=== PATIENT | male | born 1940 | race Caucasian/White ===

== ENCOUNTER 2017-02-18 10:00 | Inpatient (IN) ==
[2017-02-18] MEDS ORDERED: Ondansetron 4 MG/2 ML VIAL IVP ONE (10:13)
[2017-02-18] MEDS ORDERED: 0.9 % Sodium Chloride 1,000 ML IVC ONE ×3 (10:13→14:18)
[2017-02-18] MEDS ORDERED: *HR* Morphine 2 MG/ML SYRINGE IVP ONE (10:13)
[2017-02-18] MEDS ORDERED: Piperacillin/Tazobactam 3.375 GM in D5% in Water (Mini-Bag+) 100 ML IVPB ONE (10:13)
[2017-02-18] MEDS ORDERED: 0.9 % Sodium Chloride 1,000 ML ONE (10:14)
--- NOTE | 2017-02-18 10:35 | Emergency Department Note ---
Disposition Clinical Impression: Dehydration, Small bowel obstruction, Right inguinal hernia Hypotension Qualifiers: Hypotension type: unspecified hypotension type Qualified Code(s): I95.9 - Hypotension, unspecified Disposition: Admitted As Inpatient Condition: Fair Referrals: NO,PCP [Primary Care Provider] - Forms: ED Satisfaction Letter Time of Disposition: 13:24 General Adult HPI - General Chief complaint: ED Nausea/Vomiting/Diarrhea Stated complaint: N/V X 3 DAYS Time Seen by Provider: 02/18/17 10:08 Source: patient, EMS Mode of arrival: EMS Limitations: other Nursing Notes Reviewed: Yes Vital Signs Reviewed: Yes - History of Present Illness HPI Narrative: Patient presents via EMS for evaluation of nausea vomiting and abdominal pain. He is currently part of a facility where he is observed. EMS went to pick him up today and he was the only person in that facility today. Patient has had 3 days worth of abdominal pain nausea and vomiting. He was brought in the emergency room with stable vital signs are glucose 129. No other concerns or symptoms on presentation Onset (ago): day(s) Location: abdomen, genitals Radiation: non-radiation, abdomen Pain Severity: moderate Pain Scale: 6 Quality: aching Consistency: constant Improves with: nothing Worsens with: nothing Associated symptoms: Reports: loss of appetite, nausea/vomiting Treatments Prior to Arrival: none - Related Data Allergies Allergy/AdvReac Type Severity Reaction Status Date / Time No Known Allergies Allergy Verified 02/18/17 10:04 All systems ED: reviewed and negative except as stated. Review of Systems: As Per HPI Constitutional: Denies: fever, chills ENT ED: Denies: dysphagia Cardiovascular: Denies: chest pain, palpitations, dyspnea on exertion, orthopnea , edema Respiratory: Denies: cough, dyspnea, wheezes Gastrointestinal: Reports: abdominal pain, nausea, vomiting. Denies: diarrhea, constipation Genitourinary: Denies: urgency, dysuria Musculoskeletal: Denies: back pain, neck pain Neurological: Denies: headache Endocrine: Reports: fatigue Past Medical History - Past Medical History Attestation: Yes The following information was validated with the patient. Source: patient Physical Exam - General Limitations: no limitations General appearance: alert, in no apparent distress - Head Head exam: atraumatic, normocephalic, normal inspection - Eye Eye exam: Present: normal appearance, PERRL, EOMI - ENT ENT exam: normal exam, normal oropharynx, mucous membranes moist - Chest Chest inspection: Present: normal inspection, symmetric chest wall rise - Respiratory Respiratory exam: Present: normal lung sounds bilaterally. Absent: respiratory distress, wheezes - Cardiovascular Cardiovascular exam: Present: normal rhythm, tachycardia, normal heart sounds - Abdominal Exam Abdominal exam: Present: soft, tenderness, diminished bowel sounds. Absent: distention, guarding, rebound, rigidity - Male exam: Present: circumcised, inguinal hernia, testicular tenderness Scrotal exam: testicular tenderness: right, testicular swelling: right, testicular mass: right - Extremities Exam Extremities exam: Present: normal inspection, full ROM, normal capillary refill. Absent: tenderness, pedal edema - Back Exam Back exam: Present: normal inspection, full ROM. Absent: tenderness, CVA tenderness (R), CVA tenderness (L) - Neurological Exam Neurological exam: Present: alert, CN II-XII intact, normal gait - Psychiatric Psychiatric exam: Present: normal mood, flat affect - Skin Skin exam: Present: warm, dry, intact, normal color Course Course Narrative: Patient seen and examined the time of arrival by EMS. See history of present illness. 76-year-old male from a long-term presents today for evaluation of abdominal pain nausea vomiting and diarrhea. Patient is a poor historian. EMS said that the patient was only 1 at the facility this morning and nobody else was there besides a staff member. Patient is describing symptoms for approximately 3 days. During transport his vital signs are stable and his Accu- Chek was 129 he was afebrile. On presentation his blood pressure was labile in the 60-80 systolic range. Heart rate was anywhere from 100-120. Patient was mentating answering questions at the bedside without any acute complication. Physical exam is otherwise benign head is atraumatic pupils are equal round and reactive. Lungs are clear heart is regular he is no acute signs of cervical lymphadenopathy. Abdomen is distended and slightly rigid with no guarding no rigidity no peritoneal like symptoms at this time. Bedside ultrasound was completed immediately on presentation showing no acute signs of fluid in the abdomen as well as a technically difficult tests looking for possible aortic aneurysm. Patient on examination found to have a significantly enlarged and swollen right testicle difficult to differentiate whether this is a testicular torsion or incarcerated hernia. Based on the symptoms history and the presentation patient is concerning for incarcerated hernia as well as sepsis. Patient to be started on broad-spectrum antibiotics for abdominal pathology Doppler the scrotum ordered at this time as well as CT imaging. 2 L of fluid as well as pain medication nausea medication and antibiotics ordered at this time. Disposition will most likely be admission to the hospital for definitive management. There is also concerned for the safety of the patient at this outside facility considering this is been lingering for approximately 3 days and there is nobody else at the facility to observe her take care of him. Patient is resting comfortably in the bed at this time. He has a mildly flat affact since difficult to differentiate if he has significant pain or discomfort. - Reevaluation(s) Reevaluation #1: Patient found a small bowel ejection with right incarcerated inguinal hernia. Consultation placed onto the operative physician Dr. Lewis at this time. reviewed the presentation, symptoms, vs. abx, and imaging. pt grossly has incarcerated hernia with sbo, surgical intervention needed. fluids. pain medication, nausea medication and abx given. He recommended nasogastric tube intermittent wall suction in Trendelenburg. Patient to continue fluid hydration at this time. Consultation to be placed out to the nephrology group to see him as an outpatient. Dr. Posadas is patient this time. Surgery to come down and evaluate the patient at the bedside of this time . Dr. Posadas and I reviewed the case and she will be done superficial emergency room and recommended laboratory and on as well as CPK. Recommended increased fluid hydration. 2 L given her now 30 L to be given. Patient's blood pressure still been labile though he is mentating. Verbal consent completed for what appears to be a central line access. Patient understands this and benefits of this. Paperwork to be signed. He understands is concern for possible pneumothoraces infection vascular injury issue he also understands that we need to be provided fluid resuscitation as well as possible pressure medication secondary to a bowel pressure attending what appears to be in septic shock. Time: 11:55 Reevaluation #2: Central line placement on a complication. See dictated note. Procedures performed by Dr. Álvarez. I was there during the drug visualization cannulation of the procedure. No complications or issues during the event. Vital signs are maintained. Postprocedural x-ray ordered and shows stable presentation with no signs of pneumothorax. Patient will be discussed with hospitalist for admission at this time. Time: 13:22 Reevaluation #3: Discussed with the hospitalist Dr. Guzman. Read the presentation symptoms as well as consultation with the on-call surgeon Dr. Lewis. They are able to reduce the majority of the bowel impaction in the emergency room and recommended admission to hospitals. The hospitalist at this time and no other recommendations or concerns except to reorder a lactic acid and then to add a BMP. Patient otherwise resting comfortably in the bed. 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 Patient was admitted to hospital for definitive management. No other concerns or issues noted for the hospital so this time Time: 15:13 - Consultations Consultation #1: Surgery was at bedside and evaluated the patient. The automotive internet sales manager will discuss this with the operative physician Dr. Lewis. Nasogastric tube placed patient be placed in Trendelenburg at this time. Dr. Lewis is at the bedside has been approximately 4 L of fecal purulent discharge removed from the NG tube this time. One time a normal reduction was attempted of the inguinal hernia. Without any success. Patient will be placed in Trendelenburg and 2 L of fluid will be given prior to us attempting a central line placement. Otherwise patient is resting in the bed at this time in no apparent distress. Admission process will be completed after resuscitation IV line access and repeat surgical evaluation are completed. Time: 12:32 Consultation #2: Surgeon is at the bedside attempting manual reduction. This unable to be completely taken to their service. Waiting on their disposition. Time: 14:39 Vital Signs Temperature 97.8 F 02/18/17 10:04 Pulse Rate 115 02/18/17 10:04 Respiratory Rate 20 02/18/17 10:04 Blood Pressure 78/56 02/18/17 10:04 O2 Sat by Pulse Oximetry 100 02/18/17 10:04 Temperature 97.8 F 02/18/17 10:04 Pulse Rate 84 02/18/17 14:55 Respiratory Rate 18 02/18/17 14:55 Blood Pressure 91/49 02/18/17 14:55 O2 Sat by Pulse Oximetry 94 02/18/17 14:55 Oxygen Delivery Oxygen Delivery Room Air Procedures - Central Line Placement Right IJ Central Line Inserted*: Yes Central Line Catheter Replacement*: Yes Central Line Insertion: emergent Consent Obtained: verbal consent, written consent Procedural Pause: verify patient name and date of , timeout performed per policy, klarissa and assess the site, assemble equipment and verify supplies, perform hand hygiene Patient Placed on Monitor/Pulse Ox: Yes During the Procedure: clinician is wearing sterile gloves, cap, mask,& gown during insertion, sterile field and sterile technique are maintained, patient's face is covered with drape or mask and wearing a cap, everyone in room is wearing a mask Central Line Prep: Chlorhexidine scrub Prep the Procedure Site: apply chloraprep to the skin using a back and forth scrubbing motion Local Anesthetic: lidocaine 1% Amount of anesthesia used (mL): 10 Ultrasound Used for Placement: Yes Central Line Lumen Inserted: triple Post Procedure: sutured in place, good blood return, all ports aspirated, flushed, capped, sterile dressing applied, guide wire removed and visualized, dressing is dated Post Procedure X-Ray: tip of catheter in good position, no pneumothorax seen Patient Tolerated Procedure: well Complications: none Medical Decision Making - MDM Narrative Medical decision making narrative: Abdominal pain, nausea, vomiting, hypotension, small bowel obstruction, acute kidney insufficiency, dehydration - Medical Records Medical records reviewed: Yes I reviewed the patient's medical records. - Lab Data Lab results reviewed: Yes I reviewed the patient's lab results. Result diagrams: 02/18/17 10:28 02/18/17 10:28 Lab Results 02/18/17 02/18/17 02/18/17 Range/Units 10:28 10:28 10:28 WBC 18.8 H (4.3-11.1) K/mcL RBC 5.02 (4.19-5.50) M/mcL Hgb 14.5 (12.9-16.9) g/dL Hct 44.1 (37.5-50.1) % MCV 87.8 (83.0-100.0) fL MCH 28.9 (28.0-33.3) pg MCHC 32.9 (31.6-35.5) g/dL RDW 13.3 (11.5-14.5) % Plt Count 283 (140-400) K/mcL MPV 11.7 (9.4-12.4) fL Immature Gran % 0.4 (0-4) % Seg Neutrophils % 81.5 % Lymphocytes % 6.5 % Monocytes % 11.4 % Eosinophils % 0.0 % Basophils % 0.2 % Neutrophils # 15.4 H (1.6-8.9) K/mcL Lymphocytes # 1.2 (0.6-4.6) K/mcL Monocytes # 2.1 H (0.0-1.3) K/mcL Eosinophils # 0.0 (0.0-0.6) K/mcL Basophils # 0.0 (0.0-0.2) K/mcL PT 12.9 H (9.4-12.1) Seconds INR 1.2 APTT 26.7 (26.0-36.0) Seconds Sodium 138 (136-145) mEq/L Potassium 4.3 (3.5-4.5) mEq/L Chloride 84 L (98-109) mEq/L Carbon Dioxide 29 (19-29) mEq/L BUN 104 H (8-26) mg/dL Creatinine 6.79 H (0.72-1.25) mg/dL Est GFR ( Amer) 10 L (> 60) Est GFR (Non-Af Amer) 8 L (> 60) BUN/Creatinine Ratio 15 (6-26) Glucose 148 H (70-99) mg/dL Calculated Osmolality 321 H (280-300) Lactic Acid (0.5-2.2) mmol/L Calcium 9.5 (8.6-10.8) mg/dL Total Bilirubin 0.9 (0.2-1.2) mg/dL Direct Bilirubin 0.3 (0.0-0.5) mg/dL Indirect Bilirubin 0.6 (0.0-1.2) mg/dL AST 12 (5-34) Units/L ALT 11 (0-55) Units/L Alkaline Phosphatase 98 (38-126) Units/L Creatine Kinase 146 (30-200) Units/L Troponin I (0-0.03) ng/mL Serum Total Protein 8.4 H (6.0-8.3) g/dL Albumin 3.3 L (3.5-5.0) g/dL Globulin 5.1 H (2.4-3.5) g/dL Albumin/Globulin Ratio 0.6 L (1.1-2.2) Lipase 12 (8-78) Units/L Urine Color (Yellow) Urine Clarity (Clear) Urine pH (5.0-8.0) pH Units Ur Specific [place] (1.010-1.025) Urine Protein (Neg-Trace) mg/dL Urine Glucose (UA) (Normal) mg/dL Urine Ketones (Negative) mg/dL Urine Blood (Negative) Urine Nitrite (Negative) Urine Bilirubin (Negative) Urine Urobilinogen (Normal) mg/dL Ur Leukocyte Esterase (Negative) Urine Microscopic RBC (0-3) per hpf Urine Microscopic WBC (0-3) per hpf Ur Squamous Epith Cells (None-Few) per lpf Ur Transition Epith Cell (None-Few) per hpf Urine Bacteria (None-Few) per hpf Hyaline Casts (None-Few) per lpf Urine Sperm Ur Culture Indicated? (NO) Urine Opiates Screen (Mmauun=929) ng/mL Ur Barbiturates Screen (Xncsov=815) ng/mL Ur Phencyclidine Scrn (Cutoff=25) ng/mL Ur Amphetamines Screen (Mdtjcr=9705) ng/mL U Benzodiazepines Scrn (Rfwvsc=427) ng/mL Urine Cocaine Screen (Cutoff= 300) ng/mL U Marijuana (THC) Screen (Cutoff = 50) ng/mL 02/18/17 02/18/17 02/18/17 Range/Units 10:28 10:28 10:45 WBC (4.3-11.1) K/mcL RBC (4.19-5.50) M/mcL Hgb (12.9-16.9) g/dL Hct (37.5-50.1) % MCV (83.0-100.0) fL MCH (28.0-33.3) pg MCHC (31.6-35.5) g/dL RDW (11.5-14.5) % Plt Count (140-400) K/mcL MPV (9.4-12.4) fL Immature Gran % (0-4) % Seg Neutrophils % % Lymphocytes % % Monocytes % % Eosinophils % % Basophils % % Neutrophils # (1.6-8.9) K/mcL Lymphocytes # (0.6-4.6) K/mcL Monocytes # (0.0-1.3) K/mcL Eosinophils # (0.0-0.6) K/mcL Basophils # (0.0-0.2) K/mcL PT (9.4-12.1) Seconds INR APTT (26.0-36.0) Seconds Sodium (136-145) mEq/L Potassium (3.5-4.5) mEq/L Chloride (98-109) mEq/L Carbon Dioxide (19-29) mEq/L BUN (8-26) mg/dL Creatinine (0.72-1.25) mg/dL Est GFR ( Amer) (> 60) Est GFR (Non-Af Amer) (> 60) BUN/Creatinine Ratio (6-26) Glucose (70-99) mg/dL Calculated Osmolality (280-300) Lactic Acid 5.1 H* (0.5-2.2) mmol/L Calcium (8.6-10.8) mg/dL Total Bilirubin (0.2-1.2) mg/dL Direct Bilirubin (0.0-0.5) mg/dL Indirect Bilirubin (0.0-1.2) mg/dL AST (5-34) Units/L ALT (0-55) Units/L Alkaline Phosphatase (38-126) Units/L Creatine Kinase (30-200) Units/L Troponin I 0.01 (0-0.03) ng/mL Serum Total Protein (6.0-8.3) g/dL Albumin (3.5-5.0) g/dL Globulin (2.4-3.5) g/dL Albumin/Globulin Ratio (1.1-2.2) Lipase (8-78) Units/L Urine Color (Yellow) Urine Clarity (Clear) Urine pH (5.0-8.0) pH Units Ur Specific [place] (1.010-1.025) Urine Protein (Neg-Trace) mg/dL Urine Glucose (UA) (Normal) mg/dL Urine Ketones (Negative) mg/dL Urine Blood (Negative) Urine Nitrite (Negative) Urine Bilirubin (Negative) Urine Urobilinogen (Normal) mg/dL Ur Leukocyte Esterase (Negative) Urine Microscopic RBC (0-3) per hpf Urine Microscopic WBC (0-3) per hpf Ur Squamous Epith Cells (None-Few) per lpf Ur Transition Epith Cell (None-Few) per hpf Urine Bacteria (None-Few) per hpf Hyaline Casts (None-Few) per lpf Urine Sperm Ur Culture Indicated? (NO) Urine Opiates Screen Negative (Uxiyhk=341) ng/mL Ur Barbiturates Screen Negative (Adeteq=803) ng/mL Ur Phencyclidine Scrn Negative (Cutoff=25) ng/mL Ur Amphetamines Screen Negative (Otmtpk=9735) ng/mL U Benzodiazepines Scrn Negative (Uisnim=683) ng/mL Urine Cocaine Screen Negative (Cutoff= 300) ng/mL U Marijuana (THC) Screen Negative (Cutoff = 50) ng/mL 02/18/17 Range/Units 10:46 WBC (4.3-11.1) K/mcL RBC (4.19-5.50) M/mcL Hgb (12.9-16.9) g/dL Hct (37.5-50.1) % MCV (83.0-100.0) fL MCH (28.0-33.3) pg MCHC (31.6-35.5) g/dL RDW (11.5-14.5) % Plt Count (140-400) K/mcL MPV (9.4-12.4) fL Immature Gran % (0-4) % Seg Neutrophils % % Lymphocytes % % Monocytes % % Eosinophils % % Basophils % % Neutrophils # (1.6-8.9) K/mcL Lymphocytes # (0.6-4.6) K/mcL Monocytes # (0.0-1.3) K/mcL Eosinophils # (0.0-0.6) K/mcL Basophils # (0.0-0.2) K/mcL PT (9.4-12.1) Seconds INR APTT (26.0-36.0) Seconds Sodium (136-145) mEq/L Potassium (3.5-4.5) mEq/L Chloride (98-109) mEq/L Carbon Dioxide (19-29) mEq/L BUN (8-26) mg/dL Creatinine (0.72-1.25) mg/dL Est GFR ( Amer) (> 60) Est GFR (Non-Af Amer) (> 60) BUN/Creatinine Ratio (6-26) Glucose (70-99) mg/dL Calculated Osmolality (280-300) Lactic Acid (0.5-2.2) mmol/L Calcium (8.6-10.8) mg/dL Total Bilirubin (0.2-1.2) mg/dL Direct Bilirubin (0.0-0.5) mg/dL Indirect Bilirubin (0.0-1.2) mg/dL AST (5-34) Units/L ALT (0-55) Units/L Alkaline Phosphatase (38-126) Units/L Creatine Kinase (30-200) Units/L Troponin I (0-0.03) ng/mL Serum Total Protein (6.0-8.3) g/dL Albumin (3.5-5.0) g/dL Globulin (2.4-3.5) g/dL Albumin/Globulin Ratio (1.1-2.2) Lipase (8-78) Units/L Urine Color Dark Yellow (Yellow) Urine Clarity Hazy (Clear) Urine pH 5.0 (5.0-8.0) pH Units Ur Specific [place] 1.024 (1.010-1.025) Urine Protein Negative (Neg-Trace) mg/dL Urine Glucose (UA) Normal (Normal) mg/dL Urine Ketones Trace H (Negative) mg/dL Urine Blood Negative (Negative) Urine Nitrite Negative (Negative) Urine Bilirubin Small H (Negative) Urine Urobilinogen Normal (Normal) mg/dL Ur Leukocyte Esterase Negative (Negative) Urine Microscopic RBC 5-15 H (0-3) per hpf Urine Microscopic WBC 0-3 (0-3) per hpf Ur Squamous Epith Cells Many H (None-Few) per lpf Ur Transition Epith Cell Moderate H (None-Few) per hpf Urine Bacteria Moderate H (None-Few) per hpf Hyaline Casts Many H (None-Few) per lpf Urine Sperm Present Ur Culture Indicated? NO (NO) Urine Opiates Screen (Aqyvhq=532) ng/mL Ur Barbiturates Screen (Sqxoxl=146) ng/mL Ur Phencyclidine Scrn (Cutoff=25) ng/mL Ur Amphetamines Screen (Zvocqx=8278) ng/mL U Benzodiazepines Scrn (Gglxqi=159) ng/mL Urine Cocaine Screen (Cutoff= 300) ng/mL U Marijuana (THC) Screen (Cutoff = 50) ng/mL - Radiology Data Radiology results reviewed: Yes I reviewed the patient's radiology results. CT imaging is positive for small bowel obstruction and significantly dilated proximal bowel and stomach along with incarcerated hernia - EKG Data EKG #1 EKG attestation: Yes I reviewed and interpreted this EKG. EKG shows normal: sinus rhythm, axis, intervals, QRS complexes, ST-T waves Rate: tachycardia Rhythm: NSR [place]/QRS: normal When compared to previous EKG there are: previous EKG unavailable Interpretation: nonspecific ST-T wave changes (No comparable study patient has intermittent PACs with what appears to be normal morphology as well as intervals. Possible septal myocardial infarction of indeterminate age patient is denying any chest pain or symptoms) Critical Care Time Critical Care Time: Yes Total Critical Care Time: 35 Attestation: Critical care performed: Time is exclusive of separately billable procedures. Time includes: direct patient care, patient reassessment, coordination of patient care, interpretation of data (laboratory data, radiology data, and respiratory data), review of patient's medical records, medical consultation and documentation of patient care. Procedures included in critical care time: Procedures excluded from critical care time:
[2017-02-18 10:39] LABS: Basophils % 0.2 %; Hematocrit 44.1 % (37.5-50.1); Hemoglobin 14.5 g/dL (12.9-16.9); Immature Granulocytes % 0.4 % (0-4); Lymphocytes # 1.2 K/mcL (0.6-4.6); Lymphocytes % 6.5 %; Mean Corpuscular HGB Conc 32.9 g/dL (31.6-35.5); Mean Corpuscular Hemoglobin 28.9 pg (28.0-33.3); Mean Corpuscular Volume 87.8 fL (83.0-100.0); Mean Platelet Volume 11.7 fL (9.4-12.4); Monocytes # 2.1 K/mcL (0.0-1.3); Monocytes % 11.4 %; Neutrophils # 15.4 K/mcL (1.6-8.9); Platelet Count 283 K/mcL (140-400); Red Blood Count 5.02 M/mcL (4.19-5.50); Red Cell Distribution Width 13.3 % (11.5-14.5); Segmented Neutrophils % 81.5 %
[2017-02-18 10:44] LABS: INR 1.2; Prothrombin Time 12.9 Seconds (9.4-12.1)
[2017-02-18 10:46] LABS: Activated Partial Thrombo Time 26.7 Seconds (26.0-36.0)
[2017-02-18 10:53] LABS: Bilirubin,Urine Small (Negative); Blood,Urine Negative (Negative); Color,Urine Dark Yellow (Yellow); Glucose,Urine (UA) Normal (Normal); Ketones,Urine Trace mg/dL (Negative); Leukocyte Esterase,Urine Negative (Negative); Nitrite,Urine Negative (Negative); Protein,Urine Negative (Neg-Trace); Specific Gravity,Urine 1.024 (1.010-1.025); Urobilinogen,Urine Normal (Normal)
[2017-02-18 10:56] LABS: Squamous Epithelial Cell,Urine Many per lpf (None-Few)
[2017-02-18 10:58] LABS: Clarity,Urine Hazy (Clear)
[2017-02-18 10:59] LABS: Amphetamine Screen,Urine Negative ng/mL (Cutoff=1000); Barbiturate Screen,Urine Negative ng/mL (Cutoff=200); Benzodiazepines Screen,Urine Negative ng/mL (Cutoff=200); Cannabinoid Screen,Urine Negative ng/mL (Cutoff = 50); Cocaine Screen,Urine Negative ng/mL (Cutoff= 300); Opiate Screen,Urine Negative ng/mL (Cutoff=300); Phencyclidine Screen,Urine Negative ng/mL (Cutoff=25)
[2017-02-18 11:00] LABS: Albumin 3.3 g/dL (3.5-5.0); Albumin/Globulin Ratio 0.6 (1.1-2.2); Bilirubin,Direct 0.3 mg/dL (0.0-0.5); Bilirubin,Indirect 0.6 mg/dL (0.0-1.2); Bilirubin,Total 0.9 mg/dL (0.2-1.2); Calcium 9.5 mg/dL (8.6-10.8); Globulin 5.1 g/dL (2.4-3.5); Potassium 4.3 mEq/L (3.5-4.5); Total Protein 8.4 g/dL (6.0-8.3)
[2017-02-18 11:04] LABS: Hyaline Casts,Urine Many per lpf (None-Few)
[2017-02-18 11:05] LABS: Transitional Epi Cells,Urine Moderate per hpf (None-Few)
[2017-02-18 11:06] LABS: Bacteria,Urine Moderate per hpf (None-Few); Sperm,Urine Present
[2017-02-18 11:07] LABS: WBC,Urine 0-3 per hpf (0-3)
[2017-02-18] MEDS ORDERED: 0.9 % Sodium Chloride 1,000 ML IVC SCH (14:30)
--- NOTE | 2017-02-18 15:25 | General Surgery Consult Note ---
<David Cardoso - Last Filed: 02/18/17 17:13> Date of Encounter: 02/18/17 Time of Encounter: 14:00 Assessment and Plan (1) Small bowel obstruction Current Visit: Yes Status: Acute CT of the abdomen and pelvis demonstrates findings consistent with a small bowel obstruction due to a distal segment of small bowel contained within his right inguinal hernia. There is obvious efferent collapse of bowel as well as fluid contained within the pelvis and scrotal sac. NG tube was placed. 3.8 L of fecal material was removed in the emergency room We will continue with conservative treatment: Nothing by mouth IV fluids at 110 mL per hour IV antibiotics-Zosyn Pain control Bedrest Supportive care Conduct serial abdominal exams to look for progressively worse abdominal pain, distention as well as hemodynamic instability Repeat a.m. labs We will be monitoring for a spike in his white count or abnormal vitals due to the reduction and significant compression to the segment of small bowel that was within his right inguinal hernia. It is very likely that the segment experienced a period of avascularity and therefore is going to have poor peristalsis, possibly necrotic and could develop into an ileus versus continued obstruction. We will reevaluate tomorrow morning. (2) Right inguinal hernia Current Visit: Yes Status: Chronic Patient is unaware of how long this hernia has been present. Based on his physical exam, it is very likely that this is been here for quite some time. We were able to reduce this hernia with a segment of small bowel within. Patient tolerated the reduction well. Based on the CT in the physical exam, there is still a considerable amount of fat tissue and edema present within the scrotum. (3) Severe sepsis Current Visit: Yes Status: Acute Lactic acid 5.1. Repeat ordered Pulse 115 on arrival as well as blood pressure 78/56. 3 L of normal saline was given in the emergency department IV Zosyn on board Endorgan damage with kidney showing a BUN of 104 and creatinine 6.79 (4) Leukocytosis Current Visit: Yes Status: Acute Leukocytosis of 18.8 on arrival today. Antibiotics given. Blood cultures ordered we will monitor closely Qualifiers: Leukocytosis type: unspecified Qualified Code(s): D72.829 - Elevated white blood cell count, unspecified (5) Acute on chronic kidney failure Current Visit: Yes Status: Acute IV fluids 110 mL per hour. BUN 104 and creatinine 6.79 on arrival today. We will recheck tomorrow Qualifiers: Acute renal failure type: unspecified Chronic kidney disease stage: stage 3 (moderate) Qualified Code(s): N17.9 - Acute kidney failure, unspecified; N18.3 - Chronic kidney disease, stage 3 (moderate) (6) CKD (chronic kidney disease) stage 3, GFR 30-59 ml/min Current Visit: Yes Status: Chronic (7) Lives in correction Current Visit: Yes Status: Chronic EMS states that he was at his correction by himself with only one marketing assistant present. Unaware of current situation as it appears Mr. Johnson is getting inadequate treatment and care at his correction. Likely need social work to investigate this. (8) DVT prophylaxis Current Visit: Yes Status: Acute Heparin, SCDs History of Present Illness Consult date: 02/18/17 Reason for consult: other (SBO) Requesting physician: Joshua Corbin History of present illness: Mr. Johnson is a very pleasant 76 year old male with a past medical history of CKD (Stage III), Schizophrenia, HTN, Hyperlipidemia and thyroid disease who presents to the [facility] Emergency Department with a chief complaint of worsening nausea and vomiting. Patient is minimally verbal and nods yes or no with inconsistency. He is a resident at a correction in which EMS states he was the only resident there at the time with minimal assistance present (unable to reach contact listed). Paitent is able to state that the n/v has been present for three days. On arrival to the emergency room , BP was 78/56, P 115, Leukocytosis of 18.8, BUN/Cr of 104/6.79, lactic acid 5.1 and patient was started on sepsis protocol. 3 L IVF was given, started on Zosyn, blood cultures and repeat lactic acid ordered, pain control with CT abd/ pelvis and testicular ultrasound ordered. Central line was placed without complication and confirmed with CXR. CT of the abdomen and pelvis demonstrate small bowel obstruction due to a segment of small bowel contained within a right inguinal hernia with efferent bowel collapse noted, and thus, surgery was consulted. On evaluation, NG tube was placed in the ER and was able to withdraw 3.8 L of fecal material and was placed in Trendelenburg. After approximately 2 hours, we were able to manually reduce the segment of small bowel within his right hernia and scrotal sac. Mr. Johnson tolerated this reduction well. Patient will be subsequently admitted via the hospital service to [facility]. We will continue to follow patient and proceed with conservative therapy at this time Past Med Surg Social Fam HX - Past Medical History Medical history: hyperlipidemia, hypertension, thyroid disease Psychiatric history: schizophrenia - Social History Smoking Status: Current every day smoker Smokeless Tobacco Status: No Alcohol use: unknown Drug use: unknown Medications and Allergies Allergies No Known Allergies Allergy (Verified 02/18/17 10:04) Review of Systems ROS unobtainable: due to mental status All systems PM: A 10-system review of systems was performed and is negative for pertinent findings except as documented above in the HPI. General Surgery Exam Initial Vital Signs Temp Pulse Resp BP Pulse Ox 97.8 F 115 20 78/56 100 02/18/17 10:04 02/18/17 10:02/18/17 10:02/18/17 10:02/18/17 10:04 - General physical appearance well developed, well nourished, no distress - Eyes normal ocular movement - ENT atraumatic, normocephalic - Neck trachea midline - Respiratory normal expansion, normal respiratory effort (weak) wheezing: bilateral - Cardiovascular Cardiovascular exam: Present: RRR, murmurs (CLIVE) - Abdomen Abdomen general surgery: Present: bowel sounds present, soft, non tender, distended, rigid. Absent: guarding, rebound - Genitourinary Present: normal penis with no external lesions scrotal mass/hydrocele: right (Large mass in right scrotum with edema present. No erythema.) - Integumentary Integumentary general surgery: Present: warm and dry. Absent: diaphoresis - Neurologic Present: other (minmally verbal, mostly nods yes or no) - Psychiatric Psychiatric general surgery: Present: other (unable to obtain) Exam Initial Vital Signs Temp Pulse Resp BP Pulse Ox 97.8 F 115 20 78/56 100 02/18/17 10:02/18/17 10:02/18/17 10:02/18/17 10:02/18/17 10:04 Results - Labs 02/18/17 10:28 02/18/17 15:35 Short CBC 02/18/17 Range/Units 10:28 WBC 18.8 H (4.3-11.1) K/mcL Hgb 14.5 (12.9-16.9) g/dL Hct 44.1 (37.5-50.1) % Plt Count 283 (140-400) K/mcL Neutrophils # 15.4 H (1.6-8.9) K/mcL BMP 02/18/17 Range/Units 10:28 Sodium 138 (136-145) mEq/L Potassium 4.3 (3.5-4.5) mEq/L Chloride 84 L (98-109) mEq/L Carbon Dioxide 29 (19-29) mEq/L BUN 104 H (8-26) mg/dL Creatinine 6.79 H (0.72-1.25) mg/dL Glucose 148 H (70-99) mg/dL Calcium 9.5 (8.6-10.8) mg/dL Cardiac Enzymes 02/18/17 Range/Units 10:28 Troponin I 0.01 (0-0.03) ng/mL Liver Function 02/18/17 Range/Units 10:28 Total Bilirubin 0.9 (0.2-1.2) mg/dL Direct Bilirubin 0.3 (0.0-0.5) mg/dL AST 12 (5-34) Units/L ALT 11 (0-55) Units/L Alkaline Phosphatase 98 (38-126) Units/L Albumin 3.3 L (3.5-5.0) g/dL Urine 02/18/17 Range/Units 10:46 Urine Color Dark Yellow (Yellow) Urine Clarity Hazy (Clear) Urine pH 5.0 (5.0-8.0) pH Units Ur Specific [place] 1.024 (1.010-1.025) Urine Protein Negative (Neg-Trace) mg/dL Urine Glucose (UA) Normal (Normal) mg/dL Vital Signs Temp Pulse Resp BP Pulse Ox 02/18/17 14:55 84 18 91/49 94 02/18/17 13:15 77 20 99/49 97 02/18/17 13:00 74 20 87/44 96 02/18/17 12:30 73 91/42 02/18/17 12:00 76 79/48 02/18/17 11:30 85 81/42 02/18/17 11:00 113 76/57 02/18/17 10:38 91 22 115/73 97 02/18/17 10:04 97.8 F 115 20 78/56 100 Intake and Output 02/17/17 02/18/17 02/18/17 23:59 07:59 15:59 Intake Total 2200 / 2200 Output Total 3800 / 3800 Balance -1600 / -1600 Intake: IV Fluids 2200 / 2200 0.9 % Sodium Chloride 1, 2000 / 2000 000 ML @ 3750 mls/hr IVC .Q16M ONE Rx#:[id number] Zosyn 3.375 GM In 200 / 200 Dextrose 5% (Minibag+) 100 ML 100 ML @ 100 mls/ hr IVPB ONCE ONE Rx#: [id number] Output: Gastric Drainage 3800 / 3800 Left Nare 3800 / 3800 Other: Weight 74.843 kg Patient Weight 02/18/17 23:59 Weight 74.843 kg - Imaging CT scan - abdomen: report reviewed, image reviewed Consult Discharge Plan - Plan Referrals: Kristopher Guerrero MD [Partnered Physician] - (SENT WEB REQUEST ON 02-19-17 @ 1012) NO,PCP [Primary Care Provider] - <Rudi Lewis - Last Filed: 02/19/17 12:07> Date of Encounter: 02/19/17 Review of Systems All systems PM: A 10-system review of systems was performed and is negative for pertinent findings except as documented above in the HPI. General Surgery Exam Initial Vital Signs Temp Pulse Resp BP Pulse Ox 97.8 F 115 20 78/56 100 02/18/17 10:04 02/18/17 10:04 02/18/17 10:04 02/18/17 10:04 02/18/17 10:04 Exam Initial Vital Signs Temp Pulse Resp BP Pulse Ox 97.8 F 115 20 78/56 100 02/18/17 10:04 02/18/17 10:04 02/18/17 10:04 02/18/17 10:04 02/18/17 10:04 Results - Labs 02/19/17 06:00 02/19/17 06:00 Abnormal lab results WBC 11.7 K/mcL (4.3-11.1) H 02/19/17 06:00 RBC 4.02 M/mcL (4.19-5.50) L 02/19/17 06:00 Hgb 11.8 g/dL (12.9-16.9) L D 02/19/17 06:00 Hct 35.4 % (37.5-50.1) L 02/19/17 06:00 Neutrophils # 9.2 K/mcL (1.6-8.9) H 02/19/17 06:00 Monocytes # 1.4 K/mcL (0.0-1.3) H 02/19/17 06:00 PT 12.9 Seconds (9.4-12.1) H 02/18/17 10:28 Carbon Dioxide 31 mEq/L (19-29) H 02/19/17 06:00 BUN 116 mg/dL (8-26) H 02/19/17 06:00 Creatinine 4.66 mg/dL (0.72-1.25) H 02/19/17 06:00 Est GFR ( Amer) 15 (> 60) L 02/19/17 06:00 Est GFR (Non-Af Amer) 12 (> 60) L 02/19/17 06:00 POC Glucose 93 (58-89) H 02/19/17 05:29 Calculated Osmolality 331 (280-300) H 02/19/17 06:00 Calcium 7.7 mg/dL (8.6-10.8) L 02/19/17 06:00 Phosphorus 6.0 mg/dL (2.3-4.7) H 02/19/17 06:00 Serum Total Protein 8.4 g/dL (6.0-8.3) H 02/18/17 10:28 Albumin 3.3 g/dL (3.5-5.0) L 02/18/17 10:28 Globulin 5.1 g/dL (2.4-3.5) H 02/18/17 10:28 Albumin/Globulin Ratio 0.6 (1.1-2.2) L 02/18/17 10:28 Urine Ketones Trace mg/dL (Negative) H 02/18/17 10:46 Urine Bilirubin Small (Negative) H 02/18/17 10:46 Urine Microscopic RBC 5-15 per hpf (0-3) H 02/18/17 10:46 Ur Squamous Epith Cells Many per lpf (None-Few) H 02/18/17 10:46 Ur Transition Epith Cell Moderate per hpf (None-Few) H 02/18/17 10:46 Urine Bacteria Moderate per hpf (None-Few) H 02/18/17 10:46 Hyaline Casts Many per lpf (None-Few) H 02/18/17 10:46 Diabetes panel 02/19/17 Range/Units 06:00 Sodium 142 (136-145) mEq/L Potassium 4.1 (3.5-4.5) mEq/L Chloride 100 (98-109) mEq/L Carbon Dioxide 31 H (19-29) mEq/L BUN 116 H (8-26) mg/dL Creatinine 4.66 H (0.72-1.25) mg/dL Glucose 97 (70-99) mg/dL Calcium 7.7 L (8.6-10.8) mg/dL Calcium panel 02/19/17 Range/Units 06:00 Calcium 7.7 L (8.6-10.8) mg/dL Phosphorus 6.0 H (2.3-4.7) mg/dL Pituitary panel 02/19/17 Range/Units 06:00 Sodium 142 (136-145) mEq/L Potassium 4.1 (3.5-4.5) mEq/L Chloride 100 (98-109) mEq/L Carbon Dioxide 31 H (19-29) mEq/L BUN 116 H (8-26) mg/dL Creatinine 4.66 H (0.72-1.25) mg/dL Glucose 97 (70-99) mg/dL Calcium 7.7 L (8.6-10.8) mg/dL Adrenal panel 02/19/17 Range/Units 06:00 Sodium 142 (136-145) mEq/L Potassium 4.1 (3.5-4.5) mEq/L Chloride 100 (98-109) mEq/L Carbon Dioxide 31 H (19-29) mEq/L BUN 116 H (8-26) mg/dL Creatinine 4.66 H (0.72-1.25) mg/dL Glucose 97 (70-99) mg/dL Calcium 7.7 L (8.6-10.8) mg/dL All other labs normal. - Attending Attestation I examined this patient and my medical decision-making was reviewed with the Resident Physician. I agree with the documented findings, disposition and treatment plan as described except to the extent set forth below. Review the above assessment and evaluation with the resident. Patient was found in the correction to have abdominal distention and some episodes of nausea and vomiting. NG tube removed more than 3.8 L of feculent material. During examination the abdomen did decompressive after approximately 1.5 hours of reduction the inguinal hernia defect was able to be reduced. The patient states that he has had this inguinal hernia chronically for some time. Agree with NG tube decompression. Serial abdominal examination and IV fluid hydration to improve the patient's acute on chronic kidney injury. We will follow with you.
[2017-02-18 16:05] LABS: Potassium 4.3 mEq/L (3.5-4.5)
[2017-02-18 16:09] LABS: Calcium 7.1 mg/dL (8.6-10.8)
[2017-02-18] MEDS ORDERED: Ondansetron 4 MG/2 ML VIAL IVP PRN (16:53)
[2017-02-18] MEDS ORDERED: Naloxone 0.4 MG/ML INJ IVP PRN (16:53)
[2017-02-18] MEDS ORDERED: *HR* Morphine 2 MG/ML SYRINGE IVP PRN (16:53)
[2017-02-18] MEDS ORDERED: Acetaminophen 325 MG TABLET PO PRN (16:53)
[2017-02-18] MEDS: 0.9 % Sodium Chloride 1,000 ML IVC SCH (17:08)
[2017-02-18] MEDS: *HR* Heparin 5,000 UNIT/ML VIAL SQ SCH (18:49)
[2017-02-18] MEDS ORDERED: *HR* Dextrose 50 % in Water (Syg) 50 ML SYRINGE IVP PRN (18:52)
[2017-02-18] MEDS ORDERED: D5% in Water 1,000 ML IVC PRN (18:52)
[2017-02-18] MEDS ORDERED: Dextrose Gel 15 GM PO PRN ×2 (18:52)
--- NOTE | 2017-02-18 18:57 | Internal Med History&Physical ---
Date of Encounter: 02/18/17 Time of Encounter: 17:00 Assessment and Plan (1) Incarcerated right inguinal hernia Current visit: Yes Status: Acute Surgery is on case. We will continue nothing by mouth, low-pressure intermittent suction with NG tube. We will follow further surgical recommendation (2) Small bowel obstruction Current visit: Yes Status: Acute Small bowel obstruction is due to incarcerated hernia. We will continue nothing by mouth, IV fluid, and low pressure suction. - Surgical is on case. (3) Dehydration Current visit: Yes Status: Acute Patient has nausea vomiting for 3 days. Has severe dehydration. Elevated creatinine. - We will continue IV fluid. Patient got 4 L normal saline in emergency room already. - Closely follow-up BMP and renal function. (4) Small bowel obstruction Current visit: Yes Status: Acute (5) Hypotension Current visit: Yes Status: Acute Improved after hydration. Central line has been placed by ER physician. Closely monitor blood pressure. Qualifiers: Hypotension type: other hypotension type Qualified Code(s): I95.89 - Other hypotension (6) Severe sepsis Current visit: Yes Status: Acute Patient has tachycardia, elevated WBC, elevated lactate. - Patient has no peritoneal sign, however patient may have bowel ischemia or bacteria translocation - We will continue Zosyn at this point. - Closely follow-up vital signs and lactate level (trend down after IVF). (7) DVT prophylaxis Current visit: Yes Status: Acute Heparin subcutaneously (8) Acute on chronic kidney failure Current visit: Yes Status: Acute Patient has Hx of CKD, Cr elevation may caused by severe dehydration. Will cont IVF, f/u renal function. F/U urine output. Nephrology consult on case. Qualifiers: Acute renal failure type: unspecified Chronic kidney disease stage: stage 3 (moderate) Qualified Code(s): N17.9 - Acute kidney failure, unspecified; N18.3 - Chronic kidney disease, stage 3 (moderate) Internal Medicine - H&P: HPI Chief complaint: Nausea and vomiting Admitted From: Home Plans for Post Hospital Care: Home History of present illness: Mr. Johnson is a 76 year old male seen in the 2 ER from assisted living facility for nausea vomiting for 3 days. Patient said that he has nausea vomiting since as 3 days ago, with chest pain, no bowel movement or passing gas. Patient denies fever, chest pain, or shortness of breath. In emergency room, CT abdominal shows small bowel obstruction, incarcerated right inguinal hernia. Surgical consult was called by ER doctor and saw patient. Surgeon tried to reduce the incarcerated in hernia. As per ER physician, hernia is reducible but come down again and again. When I saw patient there is still large lump in right scrotum. Past Med Surg Social Fam HX - Past Medical History Medical history: hyperlipidemia, hypertension, thyroid disease Psychiatric history: schizophrenia - Social History Smoking Status: Current every day smoker Packs per day: 1 Smokeless Tobacco Status: No Alcohol use: unknown Drug use: none Internal Medicine - H&P: Meds Allergies No Known Allergies Allergy (Verified 02/18/17 10:04) All Systems PM: A 10-system review of systems was performed and is negative for pertinent findings except as documented above in the HPI. - Constitutional Vitals: Temp Pulse Resp BP Pulse Ox 97.6 F 83 18 93/46 94 02/18/17 16:56 02/18/17 18:47 02/18/17 16:56 02/18/17 17:47 02/18/17 18:47 General appearance: Present: A&O X 3, no acute distress, answers questions appropriately - Head Head exam: Present: atraumatic, normocephalic - Eye Eye exam: Present: PERRL, conjuntiva pink, sclera anicteric Pupils: Present: PERRL - Neck Neck exam general surgery: Present: supple, trachea midline. Absent: lymphadenopathy - Respiratory Respiratory exam: Present: CTAB. Absent: accessory muscle use, rales, rhonchi, wheezes - Cardiovascular Cardiovascular exam: Present: RRR, +S1, +S2. Absent: diastolic murmur, gallop, rubs, systolic murmur - GI/Abdominal GI/Abdominal exam: Present: normal bowel sounds, soft, tenderness (Mild tenderness on RLQ, no rebound or guarding), no peritoneal signs. Absent: distended Additional comments: Right scrotum with large lump, nontender - Extremities Exam Extremities exam: Present: warm, radial pulses palpable and symetrical. Absent : calf tenderness, cyanotic, pedal edema - Neurological Exam Neurological exam: Present: CN II-XII intact, oriented X3, no focal deficits. Absent: pronater drift, facial droop, speech deficit - Skin Skin exam: Present: dry, intact Internal Med - H&P Results - Labs CBC & Chem 7: 02/18/17 10:28 02/18/17 15:35
[2017-02-19] MEDS: *HR* Heparin 5,000 UNIT/ML VIAL SQ SCH ×2 (05:52→17:26)
[2017-02-19] MEDS: 0.9 % Sodium Chloride 1,000 ML IVC SCH (05:52)
[2017-02-19 06:04] LABS: Basophils % 0.1 %; Hematocrit 35.4 % (37.5-50.1); Immature Granulocytes % 0.3 % (0-4); Lymphocytes # 1.1 K/mcL (0.6-4.6); Lymphocytes % 9.1 %; Mean Corpuscular HGB Conc 33.3 g/dL (31.6-35.5); Mean Corpuscular Hemoglobin 29.4 pg (28.0-33.3); Mean Corpuscular Volume 88.1 fL (83.0-100.0); Mean Platelet Volume 11.3 fL (9.4-12.4); Monocytes # 1.4 K/mcL (0.0-1.3); Monocytes % 11.5 %; Platelet Count 218 K/mcL (140-400); Red Blood Count 4.02 M/mcL (4.19-5.50); Red Cell Distribution Width 13.3 % (11.5-14.5)
[2017-02-19 06:05] LABS: Hemoglobin 11.8 g/dL (12.9-16.9); Neutrophils # 9.2 K/mcL (1.6-8.9)
[2017-02-19 06:06] LABS: Platelet Estimate Normal (Normal)
[2017-02-19 06:15] LABS: Calcium 7.7 mg/dL (8.6-10.8); Magnesium 2.1 mg/dL (1.6-2.6); Potassium 4.1 mEq/L (3.5-4.5)
[2017-02-19] MEDS: Pantoprazole 40 MG VIAL IVP SCH (07:47)
--- NOTE | 2017-02-19 09:05 | General Surgery Progress Note ---
<David Cardoso - Last Filed: 02/19/17 09:17> Date of Encounter: 02/19/17 Time of Encounter: 09:02 - Assessment and Plan (1) Small bowel obstruction Current Visit: Yes Status: Acute CT of the abdomen and pelvis demonstrates findings consistent with a small bowel obstruction due to a distal segment of small bowel contained within his right inguinal hernia. There is obvious efferent collapse of bowel as well as fluid contained within the pelvis and scrotal sac. NG tube - LIWS - 1200 output yesterday We will continue with conservative treatment: Nothing by mouth except ice chips IV fluids at 110 mL per hour IV antibiotics-Zosyn Pain control PPI Supportive care Conduct serial abdominal exams to look for progressively worse abdominal pain, distention as well as hemodynamic instability Repeat a.m. labs On evaluation this morning with a lack of worsening of his abdominal or groin pain, leukocytosis trending down and his hemodynamic stability there is no need for emergent or urgent surgical intervention. The incarcerated hernia is the cause of his SBO and was reducible in the ED. There is, however, a recurrence this morning and we started the discussion of a herniorrhapy with possible small bowel resection. The incarcerated segment undergoing significant pressure from reduction along with likely experiencing a period of avascularity is therefore going to have poor peristalsis, possibly necrotic and could develop into an ileus versus continued obstruction. With the patient's mental status improvement today, we will discuss options this afternoon as I believe he has capacity to consent. (2) Right inguinal hernia Current Visit: Yes Status: Chronic Patient is more conversational today when questioned about his right inguinal hernia he is unaware of how long it has been there, denies any pain and states "it has always been like this". Hernia was reducible emergency room yesterday but it appears there is recurrence this morning. Scrotal sac is back to baseline on arrival with increased firmness and enlargement. (3) Severe sepsis Current Visit: Yes Status: Acute Lactic acid 5.1 on arrival and repeat showed 2.1 Vital signs stable this morning. IV Zosyn End organ damage with kidneys. BUN/creatinine showing improvement today. (4) Leukocytosis Current Visit: Yes Status: Acute Leukocytosis of 18.8 trending down to 11.7 today Continue IV antibiotics Blood cultures pending Qualifiers: Leukocytosis type: unspecified Qualified Code(s): D72.829 - Elevated white blood cell count, unspecified (5) Acute on chronic kidney failure Current Visit: Yes Status: Acute IV fluids 110 mL per hour. Creatinine trending down to 6.79 > 5.7 > 4.6 Medicine following. Recheck tomorrow. Qualifiers: Acute renal failure type: unspecified Chronic kidney disease stage: stage 3 (moderate) Qualified Code(s): N17.9 - Acute kidney failure, unspecified; N18.3 - Chronic kidney disease, stage 3 (moderate) (6) CKD (chronic kidney disease) stage 3, GFR 30-59 ml/min Current Visit: Yes Status: Chronic (7) Lives in intermediate Current Visit: Yes Status: Chronic EMS states that he was at his intermediate by himself with only one surgical supply assistant present. Unaware of current situation as it appears Mr. Johnson is getting inadequate treatment and care at his intermediate. Likely need social work to investigate this. (8) DVT prophylaxis Current Visit: Yes Status: Acute Heparin, SCDs Subjective Patient reports: no new complaints, feels better, no flatus, no bowel movement, afebrile Narrative: Patient is more conversational this morning and able to respond to all questions. When questioned, he is able to state his full name, knows the president, correctly identified the hospital but believes it is currently October. He denies any new pain with his right inguinal hernia and states "its always been like that". Denies any nausea. Objective Vital Signs - Last 8 Hours Temp Pulse Resp BP Pulse Ox 02/19/17 07:45 98.0 F 83 17 117/56 96 02/19/17 07:27 98.0 F 83 17 117/56 96 02/19/17 04:32 98 02/19/17 04:28 85 02/19/17 04:11 98.3 F 81 17 101/52 92 Intake and Output 02/18/17 02/19/17 02/19/17 23:59 07:59 15:59 Intake Total 1999 / 1999 1000 / 1000 Output Total 750 / 750 1725 / 1725 Balance 1250 / 1250 -725 / -725 Intake: IV Fluids 1999 1000 / 1000 0.9 % Sodium Chloride 1, 1999 1000 / 1000 000 ML @ 110 mls/hr IVC . Q9H6M [facility] Rx#:[id number] Oral 0 / 0 0 / 0 Output: Urine 350 / 350 Gastric Tube Lavage 0 / 0 Amount Left Nare 0 / 0 Catheter 750 / 750 Gastric Drainage 750 / 750 625 / 625 Left Nare 375 / 375 625 / 625 Other: Meal Dinner NPO Percent of Meal Consumed 0% Weight 68.2 kg 68.8 kg Blood Glucose* 102 93 Patient Weight 02/19/17 23:59 Weight 68.8 kg - General physical appearance well developed, well nourished, no distress - Eyes normal ocular movement - ENT atraumatic, normocephalic - Neck Neck exam: trachea midline - Respiratory normal expansion, normal respiratory effort (weak) wheezing: bilateral - Cardiovascular Cardiovascular exam: Present: RRR - Abdomen Abdomen: Present: bowel sounds present (faint). Absent: distended, tender, guarding, rebound, rigid - Genitourinary scrotal mass/hydrocele: right (large firm right scrotal edema with fat and bowel ) - Labs 02/19/17 06:00 02/19/17 06:00 Diabetes panel 02/19/17 Range/Units 06:00 Sodium 142 (136-145) mEq/L Potassium 4.1 (3.5-4.5) mEq/L Chloride 100 (98-109) mEq/L Carbon Dioxide 31 H (19-29) mEq/L BUN 116 H (8-26) mg/dL Creatinine 4.66 H (0.72-1.25) mg/dL Glucose 97 (70-99) mg/dL Calcium 7.7 L (8.6-10.8) mg/dL Calcium panel 02/19/17 Range/Units 06:00 Calcium 7.7 L (8.6-10.8) mg/dL Phosphorus 6.0 H (2.3-4.7) mg/dL Pituitary panel 02/19/17 Range/Units 06:00 Sodium 142 (136-145) mEq/L Potassium 4.1 (3.5-4.5) mEq/L Chloride 100 (98-109) mEq/L Carbon Dioxide 31 H (19-29) mEq/L BUN 116 H (8-26) mg/dL Creatinine 4.66 H (0.72-1.25) mg/dL Glucose 97 (70-99) mg/dL Calcium 7.7 L (8.6-10.8) mg/dL Adrenal panel 02/19/17 Range/Units 06:00 Sodium 142 (136-145) mEq/L Potassium 4.1 (3.5-4.5) mEq/L Chloride 100 (98-109) mEq/L Carbon Dioxide 31 H (19-29) mEq/L BUN 116 H (8-26) mg/dL Creatinine 4.66 H (0.72-1.25) mg/dL Glucose 97 (70-99) mg/dL Calcium 7.7 L (8.6-10.8) mg/dL Consult Discharge Plan - Plan Referrals: Kristopher Guerrero MD [Partnered Physician] - (SENT WEB REQUEST ON 02-19-17 @ 1012) NO,PCP [Primary Care Provider] - <Rudi Lewis - Last Filed: 02/20/17 06:43> Date of Encounter: 02/20/17 Objective Vital Signs - Last 8 Hours Temp Pulse Resp BP Pulse Ox 02/20/17 05:23 72 20 95 02/20/17 03:28 83 94 02/20/17 03:00 98.8 F 83 18 113/61 94 02/20/17 01:00 78 19 122/57 95 02/19/17 23:44 99.0 F 77 19 112/53 91 02/19/17 23:00 72 16 Intake and Output 02/19/17 02/19/17 02/20/17 15:59 23:59 07:59 Intake Total 1000 / 1000 1100 / 1100 0 / 0 Output Total 1400 / 1400 2110 / 2110 Balance -400 / -400 -1010 / -1010 0 / 0 Intake: IV Fluids 1000 / 1000 1100 / 1100 0.45% Sodium Chloride 1000 / 1000 1000 Ml 1000 Ml 1,000 ML @ 100 mls/hr IVC .Q10H [facility] Rx#:[id number] 0.9 % Sodium Chloride 1, 1000 / 1000 000 ML @ 110 mls/hr IVC . Q9H6M [facility] Rx#:[id number] Zosyn 3.375 GM In 100 / 100 Dextrose 5% (Minibag+) 100 ML 100 ML @ 25 mls/hr IVPB Q12H [facility] Rx#: [id number] Oral 0 / 0 0 / 0 0 / 0 Output: Gastric Tube Lavage 60 / 60 Amount Left Nare 60 / 60 Catheter 600 / 600 600 / 600 Gastric Drainage 800 / 800 1450 / 1450 Left Nare 400 / 400 550 / 550 Other: Meal NPO at this time Weight 68.4 kg Blood Glucose* 91 122 87 Patient Weight 02/20/17 23:59 Weight 68.4 kg - Labs 02/20/17 03:55 02/20/17 03:55 Diabetes panel 02/20/17 Range/Units 03:55 Sodium 143 (136-145) mEq/L Potassium 3.7 (3.5-4.5) mEq/L Chloride 103 (98-109) mEq/L Carbon Dioxide 29 (19-29) mEq/L BUN 95 H (8-26) mg/dL Creatinine 2.84 H (0.72-1.25) mg/dL Glucose 91 (70-99) mg/dL Calcium 8.1 L (8.6-10.8) mg/dL Calcium panel 02/20/17 Range/Units 03:55 Calcium 8.1 L (8.6-10.8) mg/dL Pituitary panel 02/20/17 Range/Units 03:55 Sodium 143 (136-145) mEq/L Potassium 3.7 (3.5-4.5) mEq/L Chloride 103 (98-109) mEq/L Carbon Dioxide 29 (19-29) mEq/L BUN 95 H (8-26) mg/dL Creatinine 2.84 H (0.72-1.25) mg/dL Glucose 91 (70-99) mg/dL Calcium 8.1 L (8.6-10.8) mg/dL Adrenal panel 02/20/17 Range/Units 03:55 Sodium 143 (136-145) mEq/L Potassium 3.7 (3.5-4.5) mEq/L Chloride 103 (98-109) mEq/L Carbon Dioxide 29 (19-29) mEq/L BUN 95 H (8-26) mg/dL Creatinine 2.84 H (0.72-1.25) mg/dL Glucose 91 (70-99) mg/dL Calcium 8.1 L (8.6-10.8) mg/dL - Attending Attestation I examined this patient and my medical decision-making was reviewed with the Resident Physician. I agree with the documented findings, disposition and treatment plan as described except to the extent set forth below. The assessment and evaluation with the resident present. Patient does not have any abdominal pain symptoms and denies any nausea or vomiting. No bowel movements or flatus noted. Bowel sounds are noted on examination and there is evidence of the right inguinal hernia present. It is firm but able to be reduced with pressure. Patient denies any pain during examination. Discussed once again with the patient that it will be appropriate to repair this since he is an inpatient and his hemodynamics and laboratory values have improved. We discussed with the patient twice (once in the morning and in the afternoon) the patient states he would like to hold on his decision. Continue with IV fluid hydration and resuscitation and NG tube decompression.
--- NOTE | 2017-02-19 09:52 | Nephrology Consult Note ---
<Bob Ruiz - Last Filed: 02/19/17 13:41> Date of Encounter: 02/19/17 Time of Encounter: 09:39 Assessment and Plan (1) Acute on chronic kidney failure Status: Acute 76 M hx of htn, ckd III GRICELDA on CKD 2nd to hypovolemia/hypotension, sepsis from N/V due to small bowel obstruction and incarcerated hernia at level of right inguinal hernia. lactic acidosis and leukocytosis on presentation on zosyn hypotensive on presentation systolic BP in 70s Renal function improved with IVF. UOP 4500/24 hr Plan: continue aggressive fluid resuscitation avoid nephrotoxins: NSAID and contrast strict I/O BMP in AM Qualifiers: Acute renal failure type: unspecified Chronic kidney disease stage: stage 3 (moderate) Qualified Code(s): N17.9 - Acute kidney failure, unspecified; N18.3 - Chronic kidney disease, stage 3 (moderate) (2) Dehydration Status: Acute (3) Small bowel obstruction Status: Acute (4) Right inguinal hernia Status: Chronic (5) Hypotension Status: Acute Qualifiers: Hypotension type: other hypotension type Qualified Code(s): I95.89 - Other hypotension History of Present Illness - Reason for Consult Consult date: 02/18/17 Acute Kidney Injury, Chronic Kidney Disease - Chief Complaint n/v - History of Present Illness 76 y/o M hx of HTN, CKD III, presents with cc of N/V for 3 days. Last BM was 4 days ago. Patient was found to have small bowel obstruction within right inguinal hernia, lactic acidosis and leukocytosis and NG tube was placed and started on zosyn. Consult was placed for GRICELDA on CKD Baseline gfr 50 and patient presented with gfr 8. Patient states he is making urine. Patient was fluid resuscitated since admission and his gfr has increased to 12. Denies N/V. Past Med Surg Social Fam HX - Past Medical History Medical history: hyperlipidemia, hypertension, thyroid disease Psychiatric history: schizophrenia - Social History Smoking Status: Current every day smoker Packs per day: 1 Smokeless Tobacco Status: No Alcohol use: unknown Drug use: none Medications and Allergies Aspirin [Lo-Dose Aspirin EC] 81 mg PO QAM 02/19/17 [History] Atorvastatin [Lipitor] 10 mg PO HS 02/19/17 [History] Calcium Carbonate/Vitamin D3 [Calcium 500-Vit D3 200 Tablet] 0.5 tab PO BID [History] Citalopram [CeleXA] 20 mg PO DAILY 02/19/17 [History] Docusate Sodium [Dok] 100 mg PO BID 02/19/17 [History] Levothyroxine Sodium [Synthroid] 200 mcg PO DAILY 02/19/17 [History] OLANZapine [Zyprexa] 20 mg PO HS 02/19/17 [History] Amoxicillin/Clavulanate [Augmentin] 500 mg PO BIDWM #12 tab 02/26/17 [Rx] Fluconazole [Diflucan] 100 mg PO DAILY #6 tab 02/26/17 [Rx] amLODIPine [Norvasc] 5 mg PO DAILY tab 02/26/17 [Rx] Allergies No Known Allergies Allergy (Verified 02/18/17 10:04) Review of Systems Constitutional: no chills, no fever(s) Nose, mouth and throat: dry mouth Cardiovascular: no chest pain, no diaphoresis, no dyspnea Respiratory: no cough Gastrointestinal: abdominal pain, constipation, nausea, vomiting Integumentary: no pruritus, no wounds Neurological: no confusion, no dizziness Psychiatric: no depression Endocrine: no fatigue Exam - Vital Signs Vital signs: Initial Vital Signs Temp Pulse Resp BP Pulse Ox 97.8 F 115 20 78/56 100 02/18/17 10:04 02/18/17 10:04 02/18/17 10:04 02/18/17 10:04 02/18/17 10:04 Vital Signs - Last 8 Hours Temp Pulse Resp BP Pulse Ox 02/19/17 07:45 98.0 F 83 17 117/56 96 02/19/17 07:27 98.0 F 83 17 117/56 96 02/19/17 04:32 98 02/19/17 04:28 85 02/19/17 04:11 98.3 F 81 17 101/52 92 Intake and Output 02/18/17 02/19/17 02/19/17 23:59 07:59 15:59 Intake Total 1999 1000 / 1000 Output Total 750 / 750 1725 / 1725 Balance 1250 / 1250 -725 / -725 Intake: IV Fluids 1999 1000 / 1000 0.9 % Sodium Chloride 1, 1999 / 1999 1000 / 1000 000 ML @ 110 mls/hr IVC . Q9H6M [facility] Rx#:[id number] Oral 0 / 0 0 / 0 Output: Urine 350 / 350 Gastric Tube Lavage 0 / 0 Amount Left Nare 0 / 0 Catheter 750 / 750 Gastric Drainage 750 / 750 625 / 625 Left Nare 375 / 375 625 / 625 Other: Meal Dinner NPO Percent of Meal Consumed 0% Weight 68.2 kg 68.8 kg Blood Glucose* 102 93 Patient Weight 02/19/17 23:59 Weight 68.8 kg - General Appearance General appearance: chronically ill, frail EENT: PERRL, mucous membranes dry Additional Comments: NG tube Neck: no JVD Respiratory: clear Cardiology: no edema, regular rate, regular rhythm, normal S1, normal S2 Gastrointestinal: normoactive bowel sounds, no tenderness Additional Comments: right scrotum enlargment Integumentary: no rash, warm and dry Neurologic: no focal deficit, alert and oriented x3 Musculoskeletal: no deformities, no erythema, no cyanosis, no clubbing Psychiatric: mood/affect appropriate, cooperative Results - Lab Results 02/19/17 06:00 02/19/17 06:00 Most recent lab results Calcium 7.7 mg/dL (8.6-10.8) L 02/19/17 06:00 Phosphorus 6.0 mg/dL (2.3-4.7) H 02/19/17 06:00 Magnesium 2.1 mg/dL (1.6-2.6) 02/19/17 06:00 Consult Discharge Plan - Plan Additional Instructions: F/up with PCP in 1-2 weeks #1 may shower, no tub bath for 2 weeks #2 wash incisions with soap and water and pat dry daily; apply dry dressing to right groin and tape to secure daily #3 no lifting, pushing, pulling more than 15 pounds for the next 2 weeks #4 no driving until off narcotics for 24 hours and able to safely react in the car #5 may climb stairs Referrals: Rudi Lewis MD [Partnered Physician] - 03/08/17 4:15 pm (surgery follow- up) Kristopher Guerrero MD [Partnered Physician] - () Nino Pablo DO [Non-Partnered Physician] - 02/27/17 9:30 am <Hayes Chavez - Last Filed: 03/05/17 00:27> Date of Encounter: 02/19/17 Exam - Vital Signs Vital signs: Initial Vital Signs Temp Pulse Resp BP Pulse Ox 97.8 F 115 20 78/56 100 02/18/17 10:04 02/18/17 10:04 02/18/17 10:04 02/18/17 10:04 02/18/17 10:04 Results - Lab Results 02/26/17 04:33 02/24/17 03:28 Most recent lab results Calcium 7.9 mg/dL (8.6-10.8) L 02/24/17 03:28 Phosphorus 6.0 mg/dL (2.3-4.7) H 02/19/17 06:00 Magnesium 2.4 mg/dL (1.6-2.6) 02/20/17 03:55 - Attending Attestation I examined this patient and my medical decision-making was reviewed with the Resident Physician. I agree with the documented findings, disposition and treatment plan as described except to the extent set forth below. PT seen and examined with PMH of HTN and stage 3 CKD admitted with nausea and vomiting found with GRICELDA along with incarcerated hernia and SBO. SCr appears to be responding very well to volume repletion with great UOP, will continue. On exam still shows visible signs of volume depletion with dry MM. No indication for BATH STEWARD/STEWARDESS at this time. Avoid nephrotoxins if possible.
[2017-02-19] MEDS: Piperacillin/Tazobactam 3.375 GM in D5% in Water (Mini-Bag+) 100 ML IVPB SCH (13:59)
--- NOTE | 2017-02-19 14:33 | Electrocardiograph Report ---
[address] [address] Test Date: 2017-02-18 Pat Name: Jack Johnson Department: 104 Room: 2N04 Gender: Surgical Services Manager: : 1940 Requested By: Joshua Corbin Order Number: [id number] Reading MD: Zane Holbrook MD Measurements Intervals [place] Rate: 102 P: 55 OK: 147 QRS: 52 QRSD: 86 T: 116 QT: 306 QTc: 364 Interpretive Statements SINUS TACHYCARDIA WITH OCCASIONAL SUPRAVENTRICULAR PREMATURE COMPLEXES Electronically Signed On 02-19-2017 14:31:30 EDT by Zane Holbrook MD
[2017-02-19] MEDS ORDERED: Nicotine 21 MG PATCH.TD24 TD PRN (15:39)
--- NOTE | 2017-02-19 17:38 | Internal Med Progress Note ---
Date of Encounter: 02/19/17 Time of Encounter: 09:45 - Assessment and plan (1) Severe sepsis Current Visit: Yes Status: Acute Assessment and plan: secondary to SBO. WBC trending down. (2) Small bowel obstruction Current Visit: Yes Status: Acute Assessment and plan: CT of the abdomen and pelvis showed small bowel obstruction caused by a distal small bowel containing right inguinal hernia. Appreciate surgery input. NGT to LIWS. IV Zosyn. IV fluids. Pain control, receiving morphine IV. (3) Incarcerated right inguinal hernia Current Visit: Yes Status: Acute Assessment and plan: Plan as above. (4) Acute on chronic kidney failure Current Visit: Yes Status: Acute Assessment and plan: Prerenal secondary to severe sepsis. Continue IV fluids. Upper mendoza nephrology input. Slowly improving. BUN and creatinine are slowly trending down. Qualifiers: Acute renal failure type: unspecified Chronic kidney disease stage: stage 3 (moderate) Qualified Code(s): N17.9 - Acute kidney failure, unspecified; N18.3 - Chronic kidney disease, stage 3 (moderate) (5) Schizophrenia Current Visit: Yes Status: Chronic Assessment and plan: Change medications to ODT. Qualifiers: Schizophrenia type: unspecified Qualified Code(s): F20.9 - Schizophrenia, unspecified - Subjective Interval history: patient reports mild abdominal pain. - Constitutional Vitals: Temp Pulse Resp BP Pulse Ox 991.1 F H 83 16 101/51 92 02/19/17 15:23 02/19/17 11:30 02/19/17 15:23 02/19/17 15:23 02/19/17 15:23 General appearance: Present: cooperative, A&O X 3, pleasant, no acute distress, answers questions appropriately - Neck Neck exam general surgery: Present: supple, trachea midline. Absent: lymphadenopathy - Respiratory Respiratory exam: Present: CTAB - Cardiovascular Cardiovascular exam: Present: RRR - GI/Abdominal GI/Abdominal exam: Present: distended (timpanic sounds), tenderness - Extremities Exam Extremities exam: Absent: pedal edema - Back Exam Back exam: Absent: CVA tenderness (L), CVA tenderness (R) - Skin Skin exam: Absent: rash Internal Medicine: Result - Labs CBC & Chem 7: 02/19/17 06:00 02/19/17 06:00 Labs: Short CBC 02/19/17 Range/Units 06:00 WBC 11.7 H (4.3-11.1) K/mcL Hgb 11.8 L D (12.9-16.9) g/dL Hct 35.4 L (37.5-50.1) % Plt Count 218 (140-400) K/mcL Neutrophils # 9.2 H (1.6-8.9) K/mcL BMP 02/19/17 06:00 Sodium 142 Potassium 4.1 Chloride 100 Carbon Dioxide 31 H BUN 116 H Creatinine 4.66 H Glucose 97 Calcium 7.7 L - ABG Interpretation ABG results: PT/INR, D-dimer PT 12.9 Seconds (9.4-12.1) H 02/18/17 10:28 - Impressions Impressions Scrotum Ultrasound 02/19/17 13:00 IMPRESSION: 1. No visible blood flow in the right testicle. 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 Acute torsion cannot be entirely excluded by imaging. 2. Bowel containing right inguinal hernia, with extension into the scrotal sac. D/ / 02/19/2017 14:02:56 Jesus Manuel Cota MD / gela Interpreting Provider: Jesus Manuel Cota MD Consult Discharge Plan - Plan Referrals: Kristopher Guerrero MD [Partnered Physician] - (SENT WEB REQUEST ON 02-19-17 @ [id number]) NO,PCP [Primary Care Provider] -
[2017-02-19] MEDS ORDERED: OLANZapine 10 MG TAB.RAPDIS PO SCH (21:00)
[2017-02-20] MEDS: Piperacillin/Tazobactam 3.375 GM in D5% in Water (Mini-Bag+) 100 ML IVPB SCH ×2 (03:42→12:16)
[2017-02-20 04:33] LABS: Hematocrit 33.5 % (37.5-50.1); Hemoglobin 10.8 g/dL (12.9-16.9); Mean Corpuscular HGB Conc 32.2 g/dL (31.6-35.5); Mean Corpuscular Hemoglobin 28.6 pg (28.0-33.3); Mean Corpuscular Volume 88.9 fL (83.0-100.0); Mean Platelet Volume 11.9 fL (9.4-12.4); Platelet Count 223 K/mcL (140-400); Red Blood Count 3.77 M/mcL (4.19-5.50); Red Cell Distribution Width 13.3 % (11.5-14.5)
[2017-02-20 04:48] LABS: Calcium 8.1 mg/dL (8.6-10.8); Magnesium 2.4 mg/dL (1.6-2.6); Potassium 3.7 mEq/L (3.5-4.5)
[2017-02-20 05:26] LABS: Lymphocytes # 1.6 K/mcL (0.6-4.6); Monocytes # 2.2 K/mcL (0.0-1.3); Neutrophils # 9.9 K/mcL (1.6-8.9); Platelet Estimate Normal (Normal)
[2017-02-20] MEDS: *HR* Heparin 5,000 UNIT/ML VIAL SQ SCH ×3 (05:53→18:02)
--- NOTE | 2017-02-20 07:50 | General Surgery Progress Note ---
Date of Encounter: 02/20/17 Time of Encounter: 07:48 - Assessment and Plan (1) Right inguinal hernia Current Visit: Yes Status: Chronic With associated small bowel obstruction. I discussed the findings of possible contributing PSBO related to the hernia defect and once again suggested an open repair today. The patient has agreed to the above surgery. Will place the procedure as an "add-on" for today. Subjective Patient reports: other (Patient iatrogenically removed his NGT today. Mild complaints of pain. Appears more drowsy. No nausea or vomiting.) Objective Vital Signs - Last 8 Hours Temp Pulse Resp BP Pulse Ox 02/20/17 07:36 98.7 F 73 22 122/62 91 02/20/17 05:23 72 20 95 02/20/17 03:28 83 94 02/20/17 03:00 98.8 F 83 18 113/61 94 02/20/17 01:00 78 19 122/57 95 Intake and Output 02/19/17 02/19/17 02/20/17 15:59 23:59 07:59 Intake Total 1000 / 1000 1100 / 1100 0 / 0 Output Total 1400 / 1400 2110 / 2110 625 / 625 Balance -400 / -400 -1010 / -1010 -625 / -625 Intake: IV Fluids 1000 / 1000 1100 / 1100 0.45% Sodium Chloride 1000 / 1000 1000 Ml 1000 Ml 1,000 ML @ 100 mls/hr IVC .Q10H [facility] Rx#:[id number] 0.9 % Sodium Chloride 1, 1000 / 1000 000 ML @ 110 mls/hr IVC . Q9H6M [facility] Rx#:[id number] Zosyn 3.375 GM In 100 / 100 Dextrose 5% (Minibag+) 100 ML 100 ML @ 25 mls/hr IVPB Q12H [facility] Rx#: [id number] Oral 0 / 0 0 / 0 0 / 0 Output: Gastric Tube Lavage 60 / 60 Amount Left Nare 60 / 60 Catheter 600 / 600 600 / 600 625 / 625 Gastric Drainage 800 / 800 1450 / 1450 Left Nare 400 / 400 550 / 550 Other: Meal NPO at this time Weight 68.4 kg Blood Glucose* 91 122 87 Patient Weight 02/20/17 23:59 Weight 68.4 kg - General physical appearance no distress - Respiratory normal expansion, normal respiratory effort - Abdomen Abdomen: Present: bowel sounds present, soft, non tender (Noted tendernes in the right inguinal region overlying the hernia. Scant BS noted.) - Labs 02/20/17 03:55 02/20/17 03:55 Diabetes panel 02/20/17 Range/Units 03:55 Sodium 143 (136-145) mEq/L Potassium 3.7 (3.5-4.5) mEq/L Chloride 103 (98-109) mEq/L Carbon Dioxide 29 (19-29) mEq/L BUN 95 H (8-26) mg/dL Creatinine 2.84 H (0.72-1.25) mg/dL Glucose 91 (70-99) mg/dL Calcium 8.1 L (8.6-10.8) mg/dL Calcium panel 02/20/17 Range/Units 03:55 Calcium 8.1 L (8.6-10.8) mg/dL Pituitary panel 02/20/17 Range/Units 03:55 Sodium 143 (136-145) mEq/L Potassium 3.7 (3.5-4.5) mEq/L Chloride 103 (98-109) mEq/L Carbon Dioxide 29 (19-29) mEq/L BUN 95 H (8-26) mg/dL Creatinine 2.84 H (0.72-1.25) mg/dL Glucose 91 (70-99) mg/dL Calcium 8.1 L (8.6-10.8) mg/dL Adrenal panel 02/20/17 Range/Units 03:55 Sodium 143 (136-145) mEq/L Potassium 3.7 (3.5-4.5) mEq/L Chloride 103 (98-109) mEq/L Carbon Dioxide 29 (19-29) mEq/L BUN 95 H (8-26) mg/dL Creatinine 2.84 H (0.72-1.25) mg/dL Glucose 91 (70-99) mg/dL Calcium 8.1 L (8.6-10.8) mg/dL Consult Discharge Plan - Plan Referrals: Kristopher Guerrero MD [Partnered Physician] - (SENT WEB REQUEST ON 02-19-17 @ 1012) NO,PCP [Primary Care Provider] -
[2017-02-20] MEDS: Levothyroxine Sodium 100 MCG VIAL IVP SCH ×2 (08:00→12:16)
--- NOTE | 2017-02-20 08:33 | Nephrology Progress Note ---
Date of Encounter: 02/20/17 Time of Encounter: 08:32 - Assessment and Plan (1) Acute on chronic kidney failure Current Visit: Yes Status: Acute Renal function continues to improve with fluid administration UOP continues to be adequate no signs of fluid overload: patient net negative BP stable: hypotension resolved. Plan: continue IVF: will undergo right inguinal repair today, adequate hydration is important. monitor electrolytes and replace accordingly avoid nephrotoxins nsaids and contrast Qualifiers: Acute renal failure type: unspecified Chronic kidney disease stage: stage 3 (moderate) Qualified Code(s): N17.9 - Acute kidney failure, unspecified; N18.3 - Chronic kidney disease, stage 3 (moderate) (2) Dehydration Current Visit: Yes Status: Resolved (3) Small bowel obstruction Current Visit: Yes Status: Acute (4) Right inguinal hernia Current Visit: Yes Status: Chronic (5) Hypotension Current Visit: Yes Status: Resolved Qualifiers: Hypotension type: other hypotension type Qualified Code(s): I95.89 - Other hypotension Subjective Principal diagnosis: incarcerated right inguinal hernia. Interval history: no acute events overnight. Denies N/V/D chest pain. Surgery planned today for right inguinal hernia. Objective - Vital Signs Vital signs: Vital Signs Temp Pulse Resp BP Pulse Ox 02/20/17 07:36 98.7 F 73 22 122/62 91 02/20/17 05:23 72 20 95 02/20/17 03:28 83 94 02/20/17 03:00 98.8 F 83 18 113/61 94 02/20/17 01:00 78 19 122/57 95 02/19/17 23:44 99.0 F 77 19 112/53 91 02/19/17 23:00 72 16 02/19/17 21:00 79 20 02/19/17 20:00 74 02/19/17 19:44 98.0 F 81 20 115/56 95 02/19/17 16:30 991.1 F H 83 16 101/51 92 02/19/17 15:23 991.1 F H 16 101/51 92 02/19/17 11:30 98.5 F 83 16 117/63 92 02/19/17 11:19 98.5 F 16 117/63 91 Intake and Output 02/19/17 02/20/17 02/20/17 23:59 07:59 15:59 Intake Total 1100 / 1100 0 / 0 Output Total 2110 / 2110 625 / 625 Balance -1010 / -1010 -625 / -625 Intake: IV Fluids 1100 / 1100 0.45% Sodium Chloride 1000 / 1000 1000 Ml 1000 Ml 1,000 ML @ 100 mls/hr IVC .Q10H LEÓN Rx#:[id number] Zosyn 3.375 GM In 100 / 100 Dextrose 5% (Minibag+) 100 ML 100 ML @ 25 mls/hr IVPB Q12H LEÓN Rx#: [id number] Oral 0 / 0 0 / 0 Output: Gastric Tube Lavage 60 / 60 Amount Left Nare 60 / 60 Catheter 600 / 600 625 / 625 Gastric Drainage 1450 / 1450 Left Nare 550 / 550 Other: Meal NPO at this time Weight 68.4 kg Blood Glucose* 122 87 Patient Weight 02/20/17 23:59 Weight 68.4 kg - General Appearance General appearance: Present: appears started age EENT: Present: mucous membranes dry Neck: Present: no JVD Respiratory: Present: clear Cardiology: Present: no edema, regular rate, regular rhythm Gastrointestinal: Present: normoactive bowel sounds, no tenderness Additional Comments: right inguinal hernia with enlargement of right scrotal sac. Integumentary: Present: no rash, warm and dry Neurologic: Present: no focal deficit, no asterixis, alert and oriented x3 Musculoskeletal: Present: no cyanosis, no clubbing Psychiatric: Present: mood/affect appropriate, cooperative - Lab 02/20/17 03:55 02/20/17 03:55 Most recent lab results Calcium 8.1 mg/dL (8.6-10.8) L 02/20/17 03:55 Phosphorus 6.0 mg/dL (2.3-4.7) H 02/19/17 06:00 Magnesium 2.4 mg/dL (1.6-2.6) 02/20/17 03:55 Consult Discharge Plan - Plan Referrals: Kristopher Guerrero MD [Partnered Physician] - (SENT WEB REQUEST ON 02-19-17 @ 1012) NO,PCP [Primary Care Provider] -
[2017-02-20] MEDS: Pantoprazole 40 MG VIAL IVP SCH (11:25)
--- NOTE | 2017-02-20 13:14 | Internal Med Progress Note ---
Date of Encounter: 02/20/17 Time of Encounter: 10:00 - Assessment and plan (1) Incarcerated right inguinal hernia Current Visit: Yes Status: Acute Assessment and plan: Plan for hernia repair surgery today. (2) Small bowel obstruction Current Visit: Yes Status: Acute Assessment and plan: Improved. NG tube has been removed. Plan for hernia surgery which may resolve the obstruction (3) Dehydration Current Visit: Yes Status: Resolved Assessment and plan: Continue IV fluid. (4) Hypotension Current Visit: Yes Status: Resolved Assessment and plan: Improved Qualifiers: Hypotension type: other hypotension type Qualified Code(s): I95.89 - Other hypotension (5) Severe sepsis Current Visit: Yes Status: Acute Assessment and plan: secondary to SBO. Continue antibiotic treatment (6) DVT prophylaxis Current Visit: Yes Status: Acute Assessment and plan: Heparin subcutaneously (7) Acute on chronic kidney failure Current Visit: Yes Status: Acute Assessment and plan: Prerenal secondary to severe sepsis or dehydration. Continue IV fluids. Appreciate nephrology input. BUN and creatinine are trending down. Qualifiers: Acute renal failure type: unspecified Chronic kidney disease stage: stage 3 (moderate) Qualified Code(s): N17.9 - Acute kidney failure, unspecified; N18.3 - Chronic kidney disease, stage 3 (moderate) - Time Spent With Patient 25 - 35 minutes - Subjective Interval history: Patient was admitted for incarcerated inguinal hernia, small bowel obstruction. I saw and examined the patient today. He feels weak, no nausea no vomiting, NG tube has been removed. Surgical on case and plan for hernia repair surgery. - Constitutional Vitals: Temp Pulse Resp BP Pulse Ox 98.7 F 68 18 115/60 91 02/20/17 11:00 02/20/17 11:00 02/20/17 11:00 02/20/17 11:00 02/20/17 11:00 General appearance: Present: cooperative, A&O X 3, pleasant, no acute distress, answers questions appropriately - Head Head exam: Present: atraumatic, normocephalic - Eye Eye exam: Present: PERRL, conjuntiva pink, sclera anicteric Pupils: Present: PERRL - Neck Neck exam general surgery: Present: supple, trachea midline. Absent: lymphadenopathy - Respiratory Respiratory exam: Present: CTAB. Absent: accessory muscle use, rales, rhonchi, wheezes - Cardiovascular Cardiovascular exam: Present: RRR, +S1, +S2. Absent: diastolic murmur, gallop, rubs, systolic murmur - GI/Abdominal GI/Abdominal exam: Present: normal bowel sounds, soft, no peritoneal signs. Absent: distended, tenderness Additional comments: Right inguinal hernia - Extremities Exam Extremities exam: Present: warm, radial pulses palpable and symetrical. Absent : calf tenderness, cyanotic, pedal edema - Neurological Exam Neurological exam: Present: CN II-XII intact, oriented X3, no focal deficits. Absent: pronater drift, facial droop, speech deficit - Skin Skin exam: Present: dry, intact Internal Medicine: Result - Labs CBC & Chem 7: 02/20/17 03:55 02/20/17 03:55 Labs: Short CBC 02/20/17 Range/Units 03:55 WBC 13.7 H (4.3-11.1) K/mcL Hgb 10.8 L (12.9-16.9) g/dL Hct 33.5 L (37.5-50.1) % Plt Count 223 (140-400) K/mcL Neutrophils # 9.9 H (1.6-8.9) K/mcL BMP 02/20/17 03:55 Sodium 143 Potassium 3.7 Chloride 103 Carbon Dioxide 29 BUN 95 H Creatinine 2.84 H Glucose 91 Calcium 8.1 L - ABG Interpretation ABG results: PT/INR, D-dimer PT 12.9 Seconds (9.4-12.1) H 02/18/17 10:28 - Impressions Impressions Scrotum Ultrasound 02/19/17 13:00 IMPRESSION: 1. No visible blood flow in the right testicle. 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 Acute torsion cannot be entirely excluded by imaging. 2. Bowel containing right inguinal hernia, with extension into the scrotal sac. Critical results were called by Dr. Jesus Manuel Cota MD to Donald Chowdhury NP on 02/20/2017 at 2:37 p.m. D/ / 02/19/2017 14:02:56 Jesus Manuel Cota MD / gela Interpreting Provider: Jesus Manuel Cota MD Consult Discharge Plan - Plan Referrals: Kristopher Guerrero MD [Partnered Physician] - (SENT WEB REQUEST ON 02-19-17 @ 2621) NO,PCP [Primary Care Provider] -
--- NOTE | 2017-02-20 14:54 | Anesthesia Evaluation PreOp ---
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 History: Denies Any Significant HX Other Medical History: Renal (acute kidney injury on stage 3 CKD), Thyroid, Other (small bowel obstruction, schizophrenia) Anesthesia History: No Prior Anesthetic Complications, Past Anesthesia Alcohol Use: unknown Drug use: none Medications and Allergies Amlodipine Besylate/Benazepril [Lotrel 5-20 mg Capsule] 1 cap PO QAM 02/19/17 [ History] Aspirin [Lo-Dose Aspirin EC] 81 mg PO QAM 02/19/17 [History] Atorvastatin [Lipitor] 10 mg PO HS 02/19/17 [History] Calcium Carbonate/Vitamin D3 [Calcium 500-Vit D3 200 Tablet] 0.5 tab PO BID [History] Citalopram [CeleXA] 20 mg PO DAILY 02/19/17 [History] Docusate Sodium [Dok] 100 mg PO BID 02/19/17 [History] Levothyroxine Sodium [Synthroid] 200 mcg PO DAILY 02/19/17 [History] OLANZapine [Zyprexa] 20 mg PO HS 02/19/17 [History] Allergies No Known Allergies Allergy (Verified 02/18/17 10:04) - Meds/Allergy Pre-op Review Medications Reviewed: Yes Allergies Reviewed: Yes Beta Blockers on Current Med List: No Anesthesia Results - Labs 02/20/17 03:55 02/20/17 03:55 Laboratory Tests 02/18/17 10:28 PT 12.9 H INR 1.2 APTT 26.7 - Imaging EKG: report reviewed (02/18/2017 SINUS TACHYCARDIA WITH OCCASIONAL SUPRAVENTRICULAR PREMATURE COMPLEXES) Anesthesia Exam Vital Signs/O2 Sat/Glucose, Most Recent Temp Pulse Resp BP Pulse Ox 98.7 F 68 18 115/60 91 02/20/17 11:00 02/20/17 11:00 02/20/17 11:00 02/20/17 11:00 02/20/17 11:00 Blood Glucose* 86 Height: 5'10''/1.78 m Weight: 150 lbs/68.4 kg NPO (# of Hours): 8 Pain Scale: 0 Pain Scale Used: Numeric (1 - 10) - HEENT Mallampati: II Teeth: Missing (missing numerous teeth), Poor dentition Oral Opening: Greater than 3 - TEMPERATURE LOGGING OPERATOR LOC: Oriented TEMPERATURE LOGGING OPERATOR Motor: Normal RUE, Normal LUE, Normal RLE, Normal LLE, Normal Face TEMPERATURE LOGGING OPERATOR Sensory: Normal: RUE, LUE, RLE, LLE, Face - Cardiac Rhythm: Regular Murmur: None - Pulmonary Breath Sounds: bilateral Clear Respiratory Effort: Symmetrical Anesthesia Assess/Plan ASA Score: 4 Modified Liberal Scale for Level of Consciousness: Cooperative, oriented, and tranquil Anesthetic Plan: General Monitoring Plan: Standard Monitors Recovery Plan: PACU
[2017-02-20] MEDS ORDERED: *HR* Rocuronium Bromide 50 MG/5 ML VIAL ONE (14:56)
[2017-02-20] MEDS ORDERED: Lidocaine -MPF 2% 2 ML VIAL ONE ×2 (14:56→16:19)
[2017-02-20] MEDS ORDERED: *HR* Propofol 200 MG/20 ML VIAL IVP ONE (14:56)
[2017-02-20] MEDS ORDERED: *HR* FentaNYL (PF) 100 MCG/2 ML VIAL ONE ×2 (14:56→16:19)
[2017-02-20] MEDS ORDERED: Ondansetron 4 MG/2 ML VIAL IVP PRN ×2 (14:58→17:54)
[2017-02-20] MEDS ORDERED: *HR* Labetalol 20 MG/4 ML SYRINGE IVP PRN (14:58)
[2017-02-20] MEDS ORDERED: *HR* HYDROmorphone (PF) 1 MG/ML SYRINGE IVP PRN (14:58)
[2017-02-20] MEDS ORDERED: Ondansetron 4 MG/2 ML VIAL ONE (15:23)
--- NOTE | 2017-02-20 16:38 | Operative Note ---
Date of procedure: 02/20/17 Pre-op diagnosis: Small bowel obstruction; right inguinal hernia Post-op diagnosis: other (Partial small bowel obstruction; infarcted right testicle) Procedure: 1. Open primary repair of right inguinal hernia. 2. Right orichectomy. Anesthesia: LAUREN Surgeon: Rudi Lewis Registered Veterinary Technician: Radha Rodriguez (shanta) Estimated blood loss (cc): 40 Specimen: Omentum; right testicle and cord Condition: stable Disposition: PACU Procedure in Detail: Date of surgery: 02/20/17 After properly identifying the patient, the patient was brought to the operating room and placed in a supine position. After proper IV sedation was achieved followed by general endotracheal intubation, the patient's abdomen and groin were prepped and draped in a normal sterile fashion. A timeout was performed noting the patient's name and type of procedure to be performed. The patient had a very large incarcerated right inguinal hernia defect and a 15 blade scalpel was used to make an incision along the line connecting the right pubic tubercle and the right superior anterior iliac crest. The incision was started from the level of the pubic tubercle and extended for length of 8 cm towards this region. Bovie cauterization was used to dissect to the subcutaneous tissue into the external oblique fascia was encountered. The external oblique fascia was then incised and retractors were placed within the wound to allow for visualization of an enlarged hernia defect which appeared to be a direct hernia defect leading towards the scrotum. The sac was then entered utilizing blunt dissection and Bovie cauterization. This revealed a normal but hyperemic appearing small bowel with no evidence of ischemia. There was a transition zone noted with decompression of the efferent small bowel consistent with bowel obstruction due to the hernia defect. The segment of the small bowel was reduced back within the abdomen without difficulty. There was omentum present within the hernia defect and this appeared ischemic. This ischemic portion of the omentum within the hernia sac was transected with a handheld LigaSure and submitted to pathology. The spermatic cord was identified and appeared to show signs of possible engorgement of the vessels or thrombus. There was some bleeding that was hemostatically controlled within the sac with Bovie cauterization. Some additional adhesions were transected with Bovie cauterization and the posterior aspect of the hernia sac was dissected off the spermatic cord structures with sharp dissection and Bovie cauterization. The patient did have a preoperative scrotal ultrasound performed the prior day which showed signs of possible remote thrombus of the cord. An intraoperative consultation with urology (Dr. Álvarez) was performed to determine the next most appropriate course of treatment for the right testicle and spermatic cord structures. The suggestion was to evaluate the testicle and if it appeared to be black or discolored then an orchiectomy would be the most appropriate since this would be consistent with ischemia. Visualization did verify ischemia of the testicle and this was dissected out from the scrotal sac with blunt dissection and Bovie cauterization. These spermatic cord was then transected with the handheld LigaSure and the testicle and cord structures were submitted to pathology. The scrotum and right groin were irrigated with normal saline solution containing Ancef. The hernia defect was retracted back into its normal position and the hernia was reapproximated with interrupted 0 Vicryl sutures by reapproximating the loose conjoined tendon to the inguinal ligament (no mesh was utilized due to the ischemic nature of the omentum and testicle and concern for possible infection). Once this was performed the area was irrigated with normal saline solution containing Ancef. The external oblique fascia was reapproximated with a running 2-0 Vicryl suture and the subcutaneous tissue was reapproximated with 3-0 Vicryl sutures. The epidermal and dermal layers were reapproximated with a running 4-0 Monocryl suture. Needle, sponge, and instrument counts were correct 2 and the incision was covered with 4 x 4's. The patient was aroused from IV sedation, extubated in the operating room without complication, and transported to the recovery room in stable condition.
[2017-02-20] MEDS ORDERED: Ringers Solution, Lactated 1,000 ML ONE (16:49)
--- NOTE | 2017-02-20 17:49 | Anesthesia Evaluation Post Op ---
Date of Encounter: 02/20/17 Time of Encounter: 17:48 - Vital Signs Vital Signs: Last Vital Signs Temp 98.5 F 02/20/17 17:12 Pulse 70 02/20/17 17:32 Resp 16 02/20/17 17:32 BP 144/75 02/20/17 17:32 Pulse Ox 98 02/20/17 17:32 - Lungs Lungs: Clear Ascult./Percussion - Airway Airway: Non-obstructed - Cardiovascular Regular Rate - Mental Status Mental Status: Alert & Oriented, Answers Appropriately - Pain Pain Scale: 2 - Nausea Vomiting Nausea Vomiting: Not Present - Hydration Hydration: NPO - Discharge PostOp Status: Transfer Patient to floor
[2017-02-20] MEDS ORDERED: Dextrose Gel 15 GM PO PRN ×2 (17:54)
[2017-02-20] MEDS ORDERED: D5% in Water 1,000 ML IVC PRN (17:54)
[2017-02-20] MEDS ORDERED: Acetaminophen 325 MG TABLET PO PRN (17:54)
[2017-02-20] MEDS ORDERED: Naloxone 0.4 MG/ML INJ IVP PRN (17:54)
[2017-02-20] MEDS ORDERED: *HR* Dextrose 50 % in Water (Syg) 50 ML SYRINGE IVP PRN (17:54)
[2017-02-20] MEDS ORDERED: Nicotine 21 MG PATCH.TD24 TD PRN (17:54)
[2017-02-20] MEDS: *HR* Morphine 2 MG/ML SYRINGE IVP PRN (18:17)
[2017-02-20] MEDS: OLANZapine 10 MG TAB.RAPDIS PO SCH (20:05)
[2017-02-21] MEDS ORDERED: Piperacillin/Tazobactam 3.375 GM in D5% in Water (Mini-Bag+) 100 ML IVPB SCH ×2 (02:00→14:00)
[2017-02-21] MEDS: Levothyroxine Sodium 100 MCG VIAL IVP SCH (05:29)
[2017-02-21] MEDS: *HR* Heparin 5,000 UNIT/ML VIAL SQ SCH ×2 (05:29→16:49)
[2017-02-21 06:18] LABS: Basophils % 0.3 %; Eosinophils # 0.1 K/mcL (0.0-0.6); Eosinophils % 1.1 %; Hematocrit 35.1 % (37.5-50.1); Hemoglobin 11.1 g/dL (12.9-16.9); Immature Granulocytes % 2.5 % (0-4); Lymphocytes # 1.6 K/mcL (0.6-4.6); Lymphocytes % 14.4 %; Mean Corpuscular HGB Conc 31.6 g/dL (31.6-35.5); Mean Corpuscular Hemoglobin 28.7 pg (28.0-33.3); Mean Corpuscular Volume 90.7 fL (83.0-100.0); Mean Platelet Volume 11.8 fL (9.4-12.4); Monocytes # 1.1 K/mcL (0.0-1.3); Monocytes % 9.9 %; Neutrophils # 8.1 K/mcL (1.6-8.9); Platelet Count 222 K/mcL (140-400); Red Blood Count 3.87 M/mcL (4.19-5.50); Red Cell Distribution Width 13.5 % (11.5-14.5); Segmented Neutrophils % 71.8 %
--- NOTE | 2017-02-21 06:31 | General Surgery Progress Note ---
<David Cardoso - Last Filed: 02/21/17 17:00> Date of Encounter: 02/21/17 Time of Encounter: 06:29 - Assessment and Plan (1) Small bowel obstruction Current Visit: Yes Status: Acute Postop day #1 status post open repair of right inguinal hernia and right orchiectomy Advance diet as tolerated IV antibiotics Pain control Supportive care - PPI, antiemetics Encouraged ICS and out of bed with assistance as tolerated ABD binder over dressing PT/OT Transferred patient to . Disposition - Likely back to his custodial d/t schizophrenia once his bowel function returns and he is able to tolerate a regular diet. Social work on board and discussed the case with his Alf clarifier operator. (2) Right inguinal hernia Current Visit: Yes Status: Chronic Postop day #1 status post open repair of right inguinal hernia and right orchiectomy See above (3) Leukocytosis Current Visit: Yes Status: Acute Leukocytosis trending down from 13.7 > 11.2 Continue IV antibiotics Blood cultures show no growth Qualifiers: Leukocytosis type: unspecified Qualified Code(s): D72.829 - Elevated white blood cell count, unspecified (4) Acute on chronic kidney failure Current Visit: Yes Status: Acute IV fluids 100 mL per hour. Creatinine trending down to 6.79 > 5.7 > 4.6 > 2.84 > 1.72. Per EMR, patient is approaching baseline creatinine level which is between 1.3-1.7. Good urine output Nephrology following. Recheck tomorrow. Qualifiers: Acute renal failure type: unspecified Chronic kidney disease stage: stage 3 (moderate) Qualified Code(s): N17.9 - Acute kidney failure, unspecified; N18.3 - Chronic kidney disease, stage 3 (moderate) (5) CKD (chronic kidney disease) stage 3, GFR 30-59 ml/min Current Visit: Yes Status: Chronic (6) Severe sepsis Current Visit: Yes Status: Resolved Lactic acid 5.1 on arrival and repeat showed 2.1 Vital signs stable this morning. IV Zosyn End organ damage with kidneys. BUN/creatinine showing improvement today. (7) Lives in custodial Current Visit: Yes Status: Chronic EMS states that he was at his custodial by himself with only one assistant federal public defender present. Unaware of current situation as it appears Mr. Johnson will need social work to investigate this. (8) Schizophrenia Current Visit: Yes Status: Chronic Patient is currently on home medication olanzapine Qualifiers: Schizophrenia type: unspecified Qualified Code(s): F20.9 - Schizophrenia, unspecified (9) DVT prophylaxis Current Visit: Yes Status: Acute Heparin, SCDs Subjective Patient reports: no new complaints, voiding w/o difficulty, no bowel movement, afebrile, other (Patient is lying in bed comfortably this morning. Still unaware of the year or month. Conversive) Objective Vital Signs - Last 8 Hours Temp Pulse Resp BP Pulse Ox 02/21/17 05:36 94 02/21/17 04:44 69 97 02/21/17 04:00 69 02/21/17 03:45 98.1 F 67 16 124/64 97 02/20/17 23:55 98.7 F 62 15 121/58 94 02/20/17 23:40 69 135/63 02/20/17 23:32 63 02/20/17 23:25 74 130/63 02/20/17 23:10 66 135/67 02/20/17 22:55 65 134/67 02/20/17 22:40 69 126/70 Intake and Output 02/20/17 02/20/17 02/21/17 15:59 23:59 07:59 Intake Total 750 / 750 0 / 0 100 / 100 Output Total 0 / 0 455 / 455 405 / 405 Balance 750 / 750 -455 / -455 -305 / -305 Intake: IV Fluids 750 / 750 0.45% Sodium Chloride 700 / 700 1000 Ml 1000 Ml 1,000 ML @ 100 mls/hr IVC .Q10H LEÓN Rx#:[id number] Zosyn 3.375 GM In 50 / 50 Dextrose 5% (Minibag+) 100 ML 100 ML @ 25 mls/hr IVPB Q12H LEÓN Rx#: [id number] Oral 0 / 0 0 / 0 100 / 100 Output: Urine 25 / 25 Urethral (Hoover) 25 / 25 Estimated Blood Loss 30 / 30 Urine Amount (Catheter) 200 / 200 Catheter 0 / 0 200 / 200 405 / 405 Other: Meal NPO Weight 68.9 kg Blood Glucose* 86 64 77 Patient Weight 02/21/17 23:59 Weight 68.9 kg - General physical appearance well developed, well nourished, no distress - Eyes normal ocular movement - ENT poor custodial, atraumatic, normocephalic - Neck Neck exam: trachea midline - Respiratory normal expansion, normal respiratory effort wheezing: bilateral - Cardiovascular Cardiovascular exam: Present: RRR, murmurs (CLIVE) - Abdomen Abdomen: Present: bowel sounds present, soft, non tender. Absent: distended, guarding Hernia: none - Incision Incision: Present: clean and dry, intact - Neurologic disoriented - Psychiatric oriented to time, oriented to person, oriented to place, speech is normal, memory intact - Labs 02/21/17 05:31 02/21/17 05:31 Short CBC 02/21/17 Range/Units 05:31 WBC 11.2 H (4.3-11.1) K/mcL Hgb 11.1 L (12.9-16.9) g/dL Hct 35.1 L (37.5-50.1) % Plt Count 222 (140-400) K/mcL Neutrophils # 8.1 (1.6-8.9) K/mcL Vital Signs Temp Pulse Resp BP Pulse Ox 02/21/17 05:36 94 02/21/17 04:44 69 97 02/21/17 04:00 69 02/21/17 03:45 98.1 F 67 16 124/64 97 02/20/17 23:55 98.7 F 62 15 121/58 94 02/20/17 23:40 69 135/63 02/20/17 23:32 63 02/20/17 23:25 74 130/63 02/20/17 23:10 66 135/67 02/20/17 22:55 65 134/67 02/20/17 22:40 69 126/70 02/20/17 22:25 68 132/63 02/20/17 22:11 141/71 97 02/20/17 22:00 71 134/66 02/20/17 19:55 98.2 F 68 18 140/69 97 02/20/17 18:10 98.1 F 69 16 122/59 97 02/20/17 17:42 98.1 F 69 16 127/63 98 02/20/17 17:32 70 16 144/75 98 02/20/17 17:22 78 16 138/75 90 02/20/17 17:12 98.5 F 72 14 145/67 100 02/20/17 17:02 72 16 159/112 02/20/17 16:52 72 16 142/83 02/20/17 16:42 98.1 F 69 16 141/92 99 02/20/17 11:00 98.7 F 68 18 115/60 91 02/20/17 07:45 98.7 F 73 22 122/62 91 02/20/17 07:36 98.7 F 73 22 122/62 91 Intake and Output 02/20/17 02/20/17 02/21/17 15:59 23:59 07:59 Intake Total 750 / 750 0 / 0 100 / 100 Output Total 0 / 0 455 / 455 405 / 405 Balance 750 / 750 -455 / -455 -305 / -305 Intake: IV Fluids 750 / 750 0.45% Sodium Chloride 700 / 700 1000 Ml 1000 Ml 1,000 ML @ 100 mls/hr IVC .Q10H LEÓN Rx#:[id number] Zosyn 3.375 GM In 50 / 50 Dextrose 5% (Minibag+) 100 ML 100 ML @ 25 mls/hr IVPB Q12H LEÓN Rx#: [id number] Oral 0 / 0 0 / 0 100 / 100 Output: Urine 25 / 25 Urethral (Hoover) 25 / 25 Estimated Blood Loss 30 / 30 Urine Amount (Catheter) 200 / 200 Catheter 0 / 0 200 / 200 405 / 405 Other: Meal NPO Weight 68.9 kg Blood Glucose* 86 64 77 Patient Weight 02/21/17 23:59 Weight 68.9 kg - VTE Documentation of Mechanical Device: Intermittent pneumatic compression device Consult Discharge Plan - Plan Referrals: Kristopher Guerrero MD [Partnered Physician] - (SENT WEB REQUEST ON 02-19-17 @ 1012) NO,PCP [Primary Care Provider] - <Rudi Lewis - Last Filed: 02/22/17 07:22> Date of Encounter: 02/22/17 - Assessment and Plan (1) Right inguinal hernia Current Visit: Yes Status: Chronic Objective Vital Signs - Last 8 Hours Temp Pulse Resp BP Pulse Ox 02/22/17 03:36 97.5 F L 73 15 119/63 93 02/22/17 03:00 60 02/22/17 00:21 98.0 F 74 20 135/59 91 02/22/17 00:15 72 Intake and Output 02/21/17 02/21/17 02/22/17 15:59 23:59 07:59 Intake Total 2578 / 2578 340 / 340 1000 / 1000 Output Total 250 / 250 500 / 500 650 / 650 Balance 2328 / 2328 -160 / -160 350 / 350 Intake: IV Fluids 1658 / 1658 100 / 100 1000 / 1000 0.45% Sodium Chloride 1658 / 1658 1000 / 1000 1000 Ml 1000 Ml 1,000 ML @ 100 mls/hr IVC .Q10H LEÓN Rx#:[id number] Zosyn 3.375 GM In 100 / 100 Dextrose 5% (Minibag+) 100 ML 100 ML @ 25 mls/hr IVPB Q12H LEÓN Rx#: [id number] Oral 920 / 920 240 / 240 Output: Catheter 250 / 250 500 / 500 650 / 650 Other: Meal Dinner Percent of Meal Consumed 15% Stool Size Smear Small Stool Color Brown # Bowel Movements 1 Weight 68.9 kg 71 kg Blood Glucose* 69 104 92 Patient Weight 02/22/17 23:59 Weight 71 kg - Labs 02/22/17 03:17 02/22/17 03:17 Diabetes panel 02/22/17 Range/Units 03:17 Sodium 139 (136-145) mEq/L Potassium 3.8 (3.5-4.5) mEq/L Chloride 105 (98-109) mEq/L Carbon Dioxide 29 (19-29) mEq/L BUN 37 H D (8-26) mg/dL Creatinine 1.42 H (0.72-1.25) mg/dL Glucose 90 (70-99) mg/dL Calcium 7.8 L (8.6-10.8) mg/dL Calcium panel 02/22/17 Range/Units 03:17 Calcium 7.8 L (8.6-10.8) mg/dL Pituitary panel 02/22/17 Range/Units 03:17 Sodium 139 (136-145) mEq/L Potassium 3.8 (3.5-4.5) mEq/L Chloride 105 (98-109) mEq/L Carbon Dioxide 29 (19-29) mEq/L BUN 37 H D (8-26) mg/dL Creatinine 1.42 H (0.72-1.25) mg/dL Glucose 90 (70-99) mg/dL Calcium 7.8 L (8.6-10.8) mg/dL Adrenal panel 02/22/17 Range/Units 03:17 Sodium 139 (136-145) mEq/L Potassium 3.8 (3.5-4.5) mEq/L Chloride 105 (98-109) mEq/L Carbon Dioxide 29 (19-29) mEq/L BUN 37 H D (8-26) mg/dL Creatinine 1.42 H (0.72-1.25) mg/dL Glucose 90 (70-99) mg/dL Calcium 7.8 L (8.6-10.8) mg/dL - Attending Attestation I examined this patient and my medical decision-making was reviewed with the Resident Physician. I agree with the documented findings, disposition and treatment plan as described except to the extent set forth below. I reviewed the above assessment and evaluation with the resident present. Agree with the above-mentioned plan.
[2017-02-21 06:33] LABS: Calcium 8.1 mg/dL (8.6-10.8); Potassium 4.1 mEq/L (3.5-4.5)
[2017-02-21] MEDS: Pantoprazole 40 MG VIAL IVP SCH (07:16)
--- NOTE | 2017-02-21 08:55 | Nephrology Progress Note ---
Date of Encounter: 02/21/17 Time of Encounter: 08:53 - Assessment and Plan (1) Acute on chronic kidney failure Current Visit: Yes Status: Acute Renal function continues to improve with fluid administration UOP continues to be adequate no signs of fluid overload BP stable Plan: continue IVF. Renal function returning to baseline. monitor electrolytes and replace accordingly avoid nephrotoxins nsaids and contrast Will sign off Thank you for consulting [facility] Qualifiers: Acute renal failure type: unspecified Chronic kidney disease stage: stage 3 (moderate) Qualified Code(s): N17.9 - Acute kidney failure, unspecified; N18.3 - Chronic kidney disease, stage 3 (moderate) (2) Dehydration Current Visit: Yes Status: Resolved (3) Small bowel obstruction Current Visit: Yes Status: Acute (4) Right inguinal hernia Current Visit: Yes Status: Chronic (5) Hypotension Current Visit: Yes Status: Resolved Qualifiers: Hypotension type: other hypotension type Qualified Code(s): I95.89 - Other hypotension Subjective Principal diagnosis: incarcerated right inguinal hernia. Interval history: s/p right inguinal hernia repair POD 1. Denies N/V/D chest pain. Was tired and sleeping when I entered the room but easily arousable. Did not have any complaints. Objective - Vital Signs Vital signs: Vital Signs Temp Pulse Resp BP Pulse Ox 02/21/17 07:32 61 02/21/17 07:29 92 02/21/17 07:20 98.3 F 62 18 122/61 92 02/21/17 05:36 94 02/21/17 04:44 69 97 02/21/17 04:00 69 02/21/17 03:45 98.1 F 67 16 124/64 97 02/20/17 23:55 98.7 F 62 15 121/58 94 02/20/17 23:40 69 135/63 02/20/17 23:32 63 02/20/17 23:25 74 130/63 02/20/17 23:10 66 135/67 02/20/17 22:55 65 134/67 02/20/17 22:40 69 126/70 02/20/17 22:25 68 132/63 02/20/17 22:11 141/71 97 02/20/17 22:00 71 134/66 02/20/17 19:55 98.2 F 68 18 140/69 97 02/20/17 18:10 98.1 F 69 16 122/59 97 02/20/17 17:42 98.1 F 69 16 127/63 98 02/20/17 17:32 70 16 144/75 98 02/20/17 17:22 78 16 138/75 90 02/20/17 17:12 98.5 F 72 14 145/67 100 02/20/17 17:02 72 16 159/112 02/20/17 16:52 72 16 142/83 02/20/17 16:42 98.1 F 69 16 141/92 99 02/20/17 11:00 98.7 F 68 18 115/60 91 Intake and Output 02/20/17 02/21/17 02/21/17 23:59 07:59 15:59 Intake Total 0 / 0 200 / 200 Output Total 455 / 455 405 / 405 Balance -455 / -455 -205 / -205 Intake: IV Fluids 100 / 100 Zosyn 3.375 GM In 100 / 100 Dextrose 5% (Minibag+) 100 ML 100 ML @ 25 mls/hr IVPB Q12H [facility] Rx#: [id number] Oral 0 / 0 100 / 100 Output: Urine 25 / 25 Urethral ([place]) 25 / 25 Estimated Blood Loss 30 / 30 Urine Amount (Catheter) 200 / 200 Catheter 200 / 200 405 / 405 Other: Weight 68.9 kg Blood Glucose* 64 77 Patient Weight 02/21/17 23:59 Weight 68.9 kg - General Appearance General appearance: Present: appears started age EENT: Present: mucous membranes moist Neck: Present: no JVD, supple Respiratory: Present: clear Cardiology: Present: no edema, regular rate, regular rhythm Gastrointestinal: Present: normoactive bowel sounds, no tenderness Integumentary: Present: no rash, warm and dry Neurologic: Present: alert and oriented x3 Musculoskeletal: Present: no erythema, no cyanosis, no clubbing Psychiatric: Present: mood/affect appropriate - Lab 02/21/17 05:31 02/21/17 05:31 Most recent lab results Calcium 8.1 mg/dL (8.6-10.8) L 02/21/17 05:31 Phosphorus 6.0 mg/dL (2.3-4.7) H 02/19/17 06:00 Magnesium 2.4 mg/dL (1.6-2.6) 02/20/17 03:55 - Imaging Additional Comments: surgical site well dressed. - VTE Documentation of Mechanical Device: Intermittent pneumatic compression device Consult Discharge Plan - Plan Referrals: Kristopher Guerrero MD [Partnered Physician] - (SENT WEB REQUEST ON 02-19-17 @ 2254) NO,PCP [Primary Care Provider] -
--- NOTE | 2017-02-21 13:07 | Urology - Consult Note ---
Date of Encounter: 02/20/17 Time of Encounter: 16:06 Past Med Surg Social Fam HX - Past Medical History Medical history: hyperlipidemia, hypertension, thyroid disease Psychiatric history: schizophrenia - Social History Smoking Status: Current every day smoker Packs per day: 1 Smokeless Tobacco Status: No Alcohol use: unknown Drug use: none Medications and Allergies Amlodipine Besylate/Benazepril [Lotrel 5-20 mg Capsule] 1 cap PO QAM 02/19/17 [ History] Aspirin [Lo-Dose Aspirin EC] 81 mg PO QAM 02/19/17 [History] Atorvastatin [Lipitor] 10 mg PO HS 02/19/17 [History] Calcium Carbonate/Vitamin D3 [Calcium 500-Vit D3 200 Tablet] 0.5 tab PO BID [History] Citalopram [CeleXA] 20 mg PO DAILY 02/19/17 [History] Docusate Sodium [Dok] 100 mg PO BID 02/19/17 [History] Levothyroxine Sodium [Synthroid] 200 mcg PO DAILY 02/19/17 [History] OLANZapine [Zyprexa] 20 mg PO HS 02/19/17 [History] Allergies No Known Allergies Allergy (Verified 02/18/17 10:04) Exam Initial Vital Signs Temp Pulse Resp BP Pulse Ox 97.8 F 115 20 78/56 100 02/18/17 10:04 02/18/17 10:04 02/18/17 10:04 02/18/17 10:04 02/18/17 10:04 Urology Results - Labs 02/21/17 05:31 02/21/17 05:31 Abnormal lab results WBC 11.2 K/mcL (4.3-11.1) H 02/21/17 05:31 RBC 3.87 M/mcL (4.19-5.50) L 02/21/17 05:31 Hgb 11.1 g/dL (12.9-16.9) L 02/21/17 05:31 Hct 35.1 % (37.5-50.1) L 02/21/17 05:31 Band Neutrophils % 12.0 % (0-4) H 02/20/17 03:55 PT 12.9 Seconds (9.4-12.1) H 02/18/17 10:28 BUN 59 mg/dL (8-26) H D 02/21/17 05:31 Creatinine 1.72 mg/dL (0.72-1.25) H 02/21/17 05:31 Est GFR ( Amer) 47 (> 60) L 02/21/17 05:31 Est GFR (Non-Af Amer) 39 (> 60) L 02/21/17 05:31 BUN/Creatinine Ratio 34 (6-26) H 02/21/17 05:31 Calculated Osmolality 312 (280-300) H 02/21/17 05:31 Calcium 8.1 mg/dL (8.6-10.8) L 02/21/17 05:31 Phosphorus 6.0 mg/dL (2.3-4.7) H 02/19/17 06:00 Serum Total Protein 8.4 g/dL (6.0-8.3) H 02/18/17 10:28 Albumin 3.3 g/dL (3.5-5.0) L 02/18/17 10:28 Globulin 5.1 g/dL (2.4-3.5) H 02/18/17 10:28 Albumin/Globulin Ratio 0.6 (1.1-2.2) L 02/18/17 10:28 Urine Ketones Trace mg/dL (Negative) H 02/18/17 10:46 Urine Bilirubin Small (Negative) H 02/18/17 10:46 Urine Microscopic RBC 5-15 per hpf (0-3) H 02/18/17 10:46 Ur Squamous Epith Cells Many per lpf (None-Few) H 02/18/17 10:46 Ur Transition Epith Cell Moderate per hpf (None-Few) H 02/18/17 10:46 Urine Bacteria Moderate per hpf (None-Few) H 02/18/17 10:46 Hyaline Casts Many per lpf (None-Few) H 02/18/17 10:46 Diabetes panel 02/21/17 Range/Units 05:31 Sodium 143 (136-145) mEq/L Potassium 4.1 (3.5-4.5) mEq/L Chloride 109 (98-109) mEq/L Carbon Dioxide 29 (19-29) mEq/L BUN 59 H D (8-26) mg/dL Creatinine 1.72 H (0.72-1.25) mg/dL Glucose 85 (70-99) mg/dL Calcium 8.1 L (8.6-10.8) mg/dL Calcium panel 02/21/17 Range/Units 05:31 Calcium 8.1 L (8.6-10.8) mg/dL Pituitary panel 02/21/17 Range/Units 05:31 Sodium 143 (136-145) mEq/L Potassium 4.1 (3.5-4.5) mEq/L Chloride 109 (98-109) mEq/L Carbon Dioxide 29 (19-29) mEq/L BUN 59 H D (8-26) mg/dL Creatinine 1.72 H (0.72-1.25) mg/dL Glucose 85 (70-99) mg/dL Calcium 8.1 L (8.6-10.8) mg/dL Adrenal panel 02/21/17 Range/Units 05:31 Sodium 143 (136-145) mEq/L Potassium 4.1 (3.5-4.5) mEq/L Chloride 109 (98-109) mEq/L Carbon Dioxide 29 (19-29) mEq/L BUN 59 H D (8-26) mg/dL Creatinine 1.72 H (0.72-1.25) mg/dL Glucose 85 (70-99) mg/dL Calcium 8.1 L (8.6-10.8) mg/dL All other labs normal. Consult Discharge Plan - Plan Referrals: Kristopher Guerrero MD [Partnered Physician] - (SENT WEB REQUEST ON 02-19-17 @ 1012) NO,PCP [Primary Care Provider] -
[2017-02-21] MEDS: Piperacillin/Tazobactam 3.375 GM in D5% in Water (Mini-Bag+) 100 ML IVPB SCH (14:15)
--- NOTE | 2017-02-21 14:21 | Event Note ---
Date of Encounter: 02/20/17 Time of Encounter: 14:11 I was called to the OR by Dr Lewis for concern regarding this patients testicle. He recently had an incarcerated hernia and acute illness. ultrasound was done in the ER 24 hours prior which demonstrated no blood flow to the right testicle. This result was discovered intraoperatively (at the time of this consultation) by Dr Lewis. I did not scrub in for surgery but Dr Lewis mentioned the testicle was moderately enlarged. I eventually asked him to manipulate the testicle into the inguinal incision from the scrotum to visualize its color. At that point it was obvious that the testicle was dark and nearly black in color. This was consistent with a ischemic testicle. Based on this finding I felt that an orchiectomy was the best option for the patient as a ischemic testicle may prolong his recovery a number of weeks and he had very little potential to salvage the testicle. I recommended a orchiectomy which could be performed from the inguinal incision. Dr. Lewis felt comfortable performing this procedure and did not need surgical assistance. I recommended scrotal support and he does not require urologic follow-up unless there is extensive scrotal swelling or other urologic complications.
--- NOTE | 2017-02-21 15:00 | Internal Med Progress Note ---
Date of Encounter: 02/21/17 Time of Encounter: 10:00 - Assessment and plan (1) Incarcerated right inguinal hernia Current Visit: Yes Status: Acute Assessment and plan: Had hernia repair surgery. POD #1 today. (2) Small bowel obstruction Current Visit: Yes Status: Acute Assessment and plan: Had a hernia repair. Patient had bowel movement and passing gas today. (3) Dehydration Current Visit: Yes Status: Resolved Assessment and plan: Continue IV fluid. (4) Hypotension Current Visit: Yes Status: Resolved Assessment and plan: Resolved Qualifiers: Hypotension type: other hypotension type Qualified Code(s): I95.89 - Other hypotension (5) Severe sepsis Current Visit: Yes Status: Resolved Assessment and plan: secondary to SBO. Continue antibiotic treatment (6) DVT prophylaxis Current Visit: Yes Status: Acute Assessment and plan: Heparin subcutaneously (7) Acute on chronic kidney failure Current Visit: Yes Status: Acute Assessment and plan: Prerenal secondary to severe sepsis or dehydration. Continue IV fluids. Appreciate nephrology input. BUN and creatinine are trending down. Creatinine is very close to baseline now Qualifiers: Acute renal failure type: unspecified Chronic kidney disease stage: stage 3 (moderate) Qualified Code(s): N17.9 - Acute kidney failure, unspecified; N18.3 - Chronic kidney disease, stage 3 (moderate) - Time Spent With Patient 25 - 35 minutes - Subjective Interval history: Patient was admitted for incarcerated inguinal hernia, small bowel obstruction. I saw and examined the patient today. Patient had hernia repair and right orchiectomy yesterday. Patient had minimal pain. Had a bowel movement today. Clear liquid diet is started. Vitals are stable. Continue postoperative care. - Constitutional Vitals: Temp Pulse Resp BP Pulse Ox 98.4 F 62 16 132/87 94 02/21/17 11:08 02/21/17 11:38 02/21/17 11:08 02/21/17 11:08 02/21/17 11:08 General appearance: Present: cooperative, A&O X 3, pleasant, no acute distress, answers questions appropriately - Head Head exam: Present: atraumatic, normocephalic - Eye Eye exam: Present: PERRL, conjuntiva pink, sclera anicteric Pupils: Present: PERRL - Neck Neck exam general surgery: Present: supple, trachea midline. Absent: lymphadenopathy - Respiratory Respiratory exam: Present: CTAB. Absent: accessory muscle use, rales, rhonchi, wheezes - Cardiovascular Cardiovascular exam: Present: RRR, +S1, +S2. Absent: diastolic murmur, gallop, rubs, systolic murmur - GI/Abdominal GI/Abdominal exam: Present: normal bowel sounds, soft, no peritoneal signs. Absent: distended, tenderness - Extremities Exam Extremities exam: Present: warm, radial pulses palpable and symetrical. Absent : calf tenderness, cyanotic, pedal edema - Neurological Exam Neurological exam: Present: CN II-XII intact, oriented X3, no focal deficits. Absent: pronater drift, facial droop, speech deficit - Skin Skin exam: Present: dry, intact Internal Medicine: Result - Labs CBC & Chem 7: 02/21/17 05:31 02/21/17 05:31 Labs: Short CBC 02/21/17 Range/Units 05:31 WBC 11.2 H (4.3-11.1) K/mcL Hgb 11.1 L (12.9-16.9) g/dL Hct 35.1 L (37.5-50.1) % Plt Count 222 (140-400) K/mcL Neutrophils # 8.1 (1.6-8.9) K/mcL BMP 02/21/17 05:31 Sodium 143 Potassium 4.1 Chloride 109 Carbon Dioxide 29 BUN 59 H D Creatinine 1.72 H Glucose 85 Calcium 8.1 L - ABG Interpretation ABG results: PT/INR, D-dimer PT 12.9 Seconds (9.4-12.1) H 02/18/17 10:28 - VTE Documentation of Mechanical Device: Intermittent pneumatic compression device Consult Discharge Plan - Plan Referrals: Kristopher Guerrero MD [Partnered Physician] - (SENT WEB REQUEST ON 02-19-17 @ 1012) NO,PCP [Primary Care Provider] -
[2017-02-21] MEDS: OLANZapine 10 MG TAB.RAPDIS PO SCH (20:04)
[2017-02-21] MEDS: chlorproMAZINE 25 MG TABLET PO SCH (20:05)
[2017-02-22] MEDS: *HR* Morphine 2 MG/ML SYRINGE IVP PRN ×2 (00:21→04:00)
[2017-02-22] MEDS: Piperacillin/Tazobactam 3.375 GM in D5% in Water (Mini-Bag+) 100 ML IVPB SCH ×2 (01:06→13:47)
[2017-02-22 04:34] LABS: Basophils # 0.1 K/mcL (0.0-0.2); Basophils % 0.4 %; Eosinophils # 0.2 K/mcL (0.0-0.6); Eosinophils % 1.8 %; Hematocrit 31.8 % (37.5-50.1); Hemoglobin 10.5 g/dL (12.9-16.9); Immature Granulocytes % 4.4 % (0-4); Lymphocytes # 2.7 K/mcL (0.6-4.6); Lymphocytes % 20.2 %; Mean Corpuscular Hemoglobin 29.5 pg (28.0-33.3); Mean Corpuscular Volume 89.3 fL (83.0-100.0); Mean Platelet Volume 11.9 fL (9.4-12.4); Monocytes # 1.3 K/mcL (0.0-1.3); Monocytes % 9.5 %; Neutrophils # 8.5 K/mcL (1.6-8.9); Platelet Count 213 K/mcL (140-400); Red Blood Count 3.56 M/mcL (4.19-5.50); Red Cell Distribution Width 13.2 % (11.5-14.5); Segmented Neutrophils % 63.7 %
[2017-02-22 04:55] LABS: Calcium 7.8 mg/dL (8.6-10.8); Potassium 3.8 mEq/L (3.5-4.5)
[2017-02-22] MEDS: *HR* Heparin 5,000 UNIT/ML VIAL SQ SCH ×2 (06:02→17:20)
[2017-02-22] MEDS: Levothyroxine Sodium 100 MCG VIAL IVP SCH (06:02)
--- NOTE | 2017-02-22 07:24 | General Surgery Progress Note ---
<Rudi Lewis Pattie - Last Filed: 02/23/17 05:45> Date of Encounter: 02/23/17 - Assessment and Plan (1) Right inguinal hernia Current Visit: Yes Status: Chronic Objective Vital Signs - Last 8 Hours Temp Pulse Resp BP Pulse Ox 02/23/17 04:00 99.1 F 67 18 126/75 95 02/23/17 00:23 98.2 F 75 18 121/75 93 Intake and Output 02/22/17 02/22/17 02/23/17 15:59 23:59 07:59 Intake Total 1340 / 1340 660 / 660 500 / 500 Output Total 300 / 300 800 / 800 1250 / 1250 Balance 1040 / 1040 -140 / -140 -750 / -750 Intake: IV Fluids 1100 / 1100 600 / 600 500 / 500 0.45% Sodium Chloride 1000 / 1000 500 / 500 500 / 500 1000 Ml 1000 Ml 1,000 ML @ 100 mls/hr IVC .Q10H [facility] Rx#:[id number] Zosyn 3.375 GM In 100 / 100 100 / 100 Dextrose 5% (Minibag+) 100 ML 100 ML @ 25 mls/hr IVPB Q12H [facility] Rx#: [id number] Oral 240 / 240 60 / 60 Output: Catheter 300 / 300 800 / 800 1250 / 1250 Other: Meal Breakfast Dinner Percent of Meal Consumed 15% 50% Weight 71 kg 69.5 kg Blood Glucose* 92 Patient Weight 02/23/17 23:59 Weight 69.5 kg - Labs 02/22/17 03:17 02/23/17 04:18 Diabetes panel 02/23/17 Range/Units 04:18 Sodium 137 (136-145) mEq/L Potassium 3.7 (3.5-4.5) mEq/L Chloride 107 (98-109) mEq/L Carbon Dioxide 24 (19-29) mEq/L BUN 23 D (8-26) mg/dL Creatinine 1.36 H (0.72-1.25) mg/dL Glucose 102 H (70-99) mg/dL Calcium 7.6 L (8.6-10.8) mg/dL Calcium panel 02/23/17 Range/Units 04:18 Calcium 7.6 L (8.6-10.8) mg/dL Pituitary panel 02/23/17 Range/Units 04:18 Sodium 137 (136-145) mEq/L Potassium 3.7 (3.5-4.5) mEq/L Chloride 107 (98-109) mEq/L Carbon Dioxide 24 (19-29) mEq/L BUN 23 D (8-26) mg/dL Creatinine 1.36 H (0.72-1.25) mg/dL Glucose 102 H (70-99) mg/dL Calcium 7.6 L (8.6-10.8) mg/dL Adrenal panel 02/23/17 Range/Units 04:18 Sodium 137 (136-145) mEq/L Potassium 3.7 (3.5-4.5) mEq/L Chloride 107 (98-109) mEq/L Carbon Dioxide 24 (19-29) mEq/L BUN 23 D (8-26) mg/dL Creatinine 1.36 H (0.72-1.25) mg/dL Glucose 102 H (70-99) mg/dL Calcium 7.6 L (8.6-10.8) mg/dL Consult Discharge Plan - Plan Referrals: Kristopher Guerrero MD [Partnered Physician] - () Shoshana Lovelace CNP [Advanced Practice Nurse] - - Attending Attestation I examined this patient and my medical decision-making was reviewed with the Resident Physician. I agree with the documented findings, disposition and treatment plan as described except to the extent set forth below. I reviewed the above assessment and evaluation and agree with the above plan. Follow WBC to ensure that there is continued increased. Continue to advance diet as tolerated. <David Cardoso - Last Filed: 02/23/17 18:06> Date of Encounter: 02/23/17 Time of Encounter: 07:22 - Assessment and Plan (1) Small bowel obstruction Current Visit: Yes Status: Acute Postop day #2 status post open repair of right inguinal hernia and right orchiectomy Patient is on clears and can advance diet as tolerated Bowel movement was noted yesterday as well as flatus. IV antibiotics Pain control Supportive care - PPI, antiemetics Incision: Dressing removed with Steri-Strips intact. No erythema or drainage noted. Encouraged ICS PT/OT - patient declined services yesterday as he wanted to "wait for Juan to get here " - Today, physical and occupational therapy recommend that Mr. Johnson would benefit from continuation of skilled rehabilitation due to multiple physical and ADLs deficits. Patient required standby assist throughout his therapy sessions. - Patient walked 95 feet with cane - Activity: Up to chair with assistance. Bed alarm. Pathology from omentum shows benign adipose tissue with congestion. Right testicle and cord demonstrate testes and epididymis with congestion, focal necrosis and interstitial hemorrhage suggestive of infarction. (2) Right inguinal hernia Current Visit: Yes Status: Acute Postop day #2 status post open repair of right inguinal hernia and right orchiectomy See above (3) Leukocytosis Current Visit: Yes Status: Acute Leukocytosis trending up 13.7 > 11.2 > 13.3. Afebrile. Continue IV antibiotics Blood cultures show no growth We will continue to follow. Qualifiers: Leukocytosis type: unspecified Qualified Code(s): D72.829 - Elevated white blood cell count, unspecified (4) Acute on chronic kidney failure Current Visit: Yes Status: Resolved IV fluids 100 mL per hour. Creatinine trending down to 6.79 > 5.7 > 4.6 > 2.84 > 1.72 > 1.42. Per EMR, patient is approaching baseline creatinine level. Good urine output Nephrology signed off Qualifiers: Acute renal failure type: unspecified Chronic kidney disease stage: stage 3 (moderate) Qualified Code(s): N17.9 - Acute kidney failure, unspecified; N18.3 - Chronic kidney disease, stage 3 (moderate) (5) CKD (chronic kidney disease) stage 3, GFR 30-59 ml/min Current Visit: Yes Status: Chronic (6) Lives in [facility] Current Visit: Yes Status: Chronic Social work and occupational therapy following. Goal is to return to [facility]. (7) Schizophrenia Current Visit: Yes Status: Chronic Patient is currently on home medication olanzapine Qualifiers: Schizophrenia type: unspecified Qualified Code(s): F20.9 - Schizophrenia, unspecified (8) DVT prophylaxis Current Visit: Yes Status: Acute Heparin, SCDs Subjective Patient reports: no new complaints, tolerating liquids well, voiding w/o difficulty, flatus, bowel movement, afebrile Narrative: Patient states that he was confused after 8 PM but has returned to baseline this morning. Objective Vital Signs - Last 8 Hours Temp Pulse Resp BP Pulse Ox 02/22/17 07:18 98.2 F 65 16 126/71 91 02/22/17 03:36 97.5 F L 73 15 119/63 93 02/22/17 03:00 60 02/22/17 00:21 98.0 F 74 20 135/59 91 02/22/17 00:15 72 Intake and Output 02/21/17 02/21/17 02/22/17 15:59 23:59 07:59 Intake Total 2578 / 2578 340 / 340 1000 / 1000 Output Total 250 / 250 500 / 500 650 / 650 Balance 2328 / 2328 -160 / -160 350 / 350 Intake: IV Fluids 1658 / 1658 100 / 100 1000 / 1000 0.45% Sodium Chloride 1658 / 1658 1000 / 1000 1000 Ml 1000 Ml 1,000 ML @ 100 mls/hr IVC .Q10H [facility] Rx#:[id number] Zosyn 3.375 GM In 100 / 100 Dextrose 5% (Minibag+) 100 ML 100 ML @ 25 mls/hr IVPB Q12H [facility] Rx#: [id number] Oral 920 / 920 240 / 240 Output: Catheter 250 / 250 500 / 500 650 / 650 Other: Meal Dinner Percent of Meal Consumed 15% Stool Size Smear Small Stool Color Brown # Bowel Movements 1 Weight 68.9 kg 71 kg Blood Glucose* 69 104 92 Patient Weight 02/22/17 23:59 Weight 71 kg - General physical appearance well developed, well nourished, no distress - Eyes normal ocular movement - ENT poor senior care, atraumatic, normocephalic - Neck Neck exam: trachea midline - Respiratory normal expansion, normal respiratory effort, clear to auscultation - Cardiovascular Cardiovascular exam: Present: RRR - Abdomen Abdomen: Present: bowel sounds present, soft, non tender. Absent: distended, guarding - Incision Incision: Present: clean and dry, intact (Steri-Strips present without any drainage or erythema.) - Neurologic CN 2-12 grossly intact - Psychiatric oriented to person, oriented to place - Labs 02/23/17 04:18 02/23/17 04:18 Short CBC 02/22/17 Range/Units 03:17 WBC 13.3 H (4.3-11.1) K/mcL Hgb 10.5 L (12.9-16.9) g/dL Hct 31.8 L (37.5-50.1) % Plt Count 213 (140-400) K/mcL Neutrophils # 8.5 (1.6-8.9) K/mcL BMP 02/22/17 Range/Units 03:17 Sodium 139 (136-145) mEq/L Potassium 3.8 (3.5-4.5) mEq/L Chloride 105 (98-109) mEq/L Carbon Dioxide 29 (19-29) mEq/L BUN 37 H D (8-26) mg/dL Creatinine 1.42 H (0.72-1.25) mg/dL Glucose 90 (70-99) mg/dL Calcium 7.8 L (8.6-10.8) mg/dL Vital Signs Temp Pulse Resp BP Pulse Ox 02/22/17 07:18 98.2 F 65 16 126/71 91 02/22/17 03:36 97.5 F L 73 15 119/63 93 02/22/17 03:00 60 02/22/17 00:21 98.0 F 74 20 135/59 91 02/22/17 00:15 72 02/21/17 20:05 78 02/21/17 19:04 98.9 F 74 17 123/69 94 02/21/17 15:25 98.7 F 79 17 129/73 95 02/21/17 15:21 62 02/21/17 11:38 62 02/21/17 11:08 98.4 F 70 16 132/87 94 02/21/17 09:00 64 17 94 02/21/17 07:32 61 02/21/17 07:29 92 Intake and Output 02/21/17 02/21/17 02/22/17 15:59 23:59 07:59 Intake Total 2578 / 2578 340 / 340 1000 / 1000 Output Total 250 / 250 500 / 500 1600 / 1600 Balance 2328 / 2328 -160 / -160 -600 / -600 Intake: IV Fluids 1658 / 1658 100 / 100 1000 / 1000 0.45% Sodium Chloride 1658 / 1658 1000 / 1000 1000 Ml 1000 Ml 1,000 ML @ 100 mls/hr IVC .Q10H [facility] Rx#:[id number] Zosyn 3.375 GM In 100 / 100 Dextrose 5% (Minibag+) 100 ML 100 ML @ 25 mls/hr IVPB Q12H [facility] Rx#: [id number] Oral 920 / 920 240 / 240 Output: Catheter 250 / 250 500 / 500 1600 / 1600 Other: Meal Dinner Percent of Meal Consumed 15% Stool Size Smear Small Stool Color Brown # Bowel Movements 1 Weight 68.9 kg 71 kg Blood Glucose* 69 104 92 Patient Weight 02/22/17 23:59 Weight 71 kg - VTE Documentation of Mechanical Device: Intermittent pneumatic compression device
[2017-02-22] MEDS: chlorproMAZINE 25 MG TABLET PO SCH (08:50)
[2017-02-22] MEDS: Pantoprazole 40 MG VIAL IVP SCH (08:50)
--- NOTE | 2017-02-22 16:23 | Internal Med Progress Note ---
Date of Encounter: 02/22/17 Time of Encounter: 10:00 - Assessment and plan (1) Incarcerated right inguinal hernia Current Visit: Yes Status: Acute Assessment and plan: Had hernia repair surgery. POD #2 today. (2) Small bowel obstruction Current Visit: Yes Status: Acute Assessment and plan: Had a hernia repair. Patient had bowel movement and passing gas. SBO resolved. (3) Dehydration Current Visit: Yes Status: Resolved Assessment and plan: Continue IV fluid. Improved (4) Hypotension Current Visit: Yes Status: Resolved Assessment and plan: Resolved Qualifiers: Hypotension type: other hypotension type Qualified Code(s): I95.89 - Other hypotension (5) Severe sepsis Current Visit: Yes Status: Resolved Assessment and plan: secondary to SBO. Improved. Continue antibiotic treatment (6) DVT prophylaxis Current Visit: Yes Status: Acute Assessment and plan: Heparin subcutaneously (7) Acute on chronic kidney failure Current Visit: Yes Status: Acute Assessment and plan: Prerenal secondary to severe sepsis or dehydration. Continue IV fluids. Appreciate nephrology input. BUN and creatinine are trending down. Creatinine is at his baseline now. Qualifiers: Acute renal failure type: unspecified Chronic kidney disease stage: stage 3 (moderate) Qualified Code(s): N17.9 - Acute kidney failure, unspecified; N18.3 - Chronic kidney disease, stage 3 (moderate) - Time Spent With Patient 25 - 35 minutes - Subjective Interval history: Patient was admitted for incarcerated inguinal hernia, small bowel obstruction. I saw and examined the patient today. Patient had hernia repair and right orchiectomy POD#2. Patient had minimal pain. Had a bowel movement/passing gas. On cardiac diet. Vitals are stable. Continue postoperative care. - Constitutional Vitals: Temp Pulse Resp BP Pulse Ox 98.2 F 94 16 132/79 95 02/22/17 11:14 02/22/17 12:00 02/22/17 11:14 02/22/17 11:14 02/22/17 11:14 General appearance: Present: cooperative, A&O X 3, pleasant, no acute distress, answers questions appropriately - Head Head exam: Present: atraumatic, normocephalic - Eye Eye exam: Present: PERRL, conjuntiva pink, sclera anicteric Pupils: Present: PERRL - Neck Neck exam general surgery: Present: supple, trachea midline. Absent: lymphadenopathy - Respiratory Respiratory exam: Present: CTAB. Absent: accessory muscle use, rales, rhonchi, wheezes - Cardiovascular Cardiovascular exam: Present: RRR, +S1, +S2. Absent: diastolic murmur, gallop, rubs, systolic murmur - GI/Abdominal GI/Abdominal exam: Present: normal bowel sounds, soft, no peritoneal signs. Absent: distended, tenderness - Extremities Exam Extremities exam: Present: warm, radial pulses palpable and symetrical. Absent : calf tenderness, cyanotic, pedal edema - Neurological Exam Neurological exam: Present: CN II-XII intact, oriented X3, no focal deficits. Absent: pronater drift, facial droop, speech deficit - Skin Skin exam: Present: dry, intact Internal Medicine: Result - Labs CBC & Chem 7: 02/22/17 03:17 02/22/17 03:17 Labs: Short CBC 02/22/17 Range/Units 03:17 WBC 13.3 H (4.3-11.1) K/mcL Hgb 10.5 L (12.9-16.9) g/dL Hct 31.8 L (37.5-50.1) % Plt Count 213 (140-400) K/mcL Neutrophils # 8.5 (1.6-8.9) K/mcL BMP 02/22/17 03:17 Sodium 139 Potassium 3.8 Chloride 105 Carbon Dioxide 29 BUN 37 H D Creatinine 1.42 H Glucose 90 Calcium 7.8 L - ABG Interpretation ABG results: PT/INR, D-dimer PT 12.9 Seconds (9.4-12.1) H 02/18/17 10:28 - VTE Documentation of Mechanical Device: Intermittent pneumatic compression device Consult Discharge Plan - Plan Referrals: Kristopher Guerrero MD [Partnered Physician] - () NO,PCP [Primary Care Provider] -
[2017-02-22] MEDS: OLANZapine 10 MG TAB.RAPDIS PO SCH (20:29)
[2017-02-23] MEDS: Piperacillin/Tazobactam 3.375 GM in D5% in Water (Mini-Bag+) 100 ML IVPB SCH ×2 (02:15→13:19)
[2017-02-23 05:22] LABS: Hematocrit 32.8 % (37.5-50.1); Hemoglobin 10.7 g/dL (12.9-16.9); Mean Corpuscular HGB Conc 32.6 g/dL (31.6-35.5); Mean Corpuscular Volume 88.9 fL (83.0-100.0); Mean Platelet Volume 12.2 fL (9.4-12.4); Platelet Count 219 K/mcL (140-400); Red Blood Count 3.69 M/mcL (4.19-5.50); Red Cell Distribution Width 13.1 % (11.5-14.5)
[2017-02-23 05:37] LABS: BUN/Creatinine Ratio 17 (6-26); Calcium 7.6 mg/dL (8.6-10.8); Carbon Dioxide 24 mEq/L (19-29); Chloride 107 mEq/L (98-109); Glucose 102 mg/dL (70-99); Osmolality,Calculated 288 (280-300); Potassium 3.7 mEq/L (3.5-4.5); Sodium 137 mEq/L (136-145); eGFR For African Americans > 60 (> 60); eGFR For Non-African Americans 51 (> 60)
[2017-02-23] MEDS: *HR* Heparin 5,000 UNIT/ML VIAL SQ SCH ×2 (05:42→16:46)
[2017-02-23 05:44] LABS: Blood Urea Nitrogen 23 mg/dL (8-26)
[2017-02-23 06:09] LABS: Eosinophils # 0.3 K/mcL (0.0-0.6); Monocytes # 1.6 K/mcL (0.0-1.3); Platelet Estimate Normal (Normal); Smudge Cells Present (Not Present)
--- NOTE | 2017-02-23 08:05 | General Surgery Progress Note ---
<Rudi Lewis Pattie - Last Filed: 02/23/17 16:10> Date of Encounter: 02/23/17 - Assessment and Plan (1) Right inguinal hernia Current Visit: Yes Status: Acute Objective Vital Signs - Last 8 Hours Temp Pulse Resp BP Pulse Ox 02/23/17 15:45 98.6 F 80 16 125/47 96 Intake and Output 02/23/17 02/23/17 02/23/17 07:59 15:59 23:59 Intake Total 960 / 960 1360 / 1360 Output Total 1900 / 1900 550 / 550 Balance -940 / -940 810 / 810 Intake: IV Fluids 600 / 600 1000 / 1000 0.45% Sodium Chloride 500 / 500 1000 / 1000 1000 Ml 1000 Ml 1,000 ML @ 100 mls/hr IVC .Q10H LEÓN Rx#:[id number] Zosyn 3.375 GM In 100 / 100 Dextrose 5% (Minibag+) 100 ML 100 ML @ 25 mls/hr IVPB Q12H LEÓN Rx#: [id number] Oral 360 / 360 360 / 360 Output: Urine 200 / 200 Catheter 1900 / 1900 350 / 350 Other: Meal coffee Breakfast Percent of Meal Consumed 100% Stool Size Large Stool Consistency loose soft Stool Color Brown Weight 69.5 kg Patient Weight 02/23/17 23:59 Weight 69.5 kg - Labs 02/23/17 04:18 02/23/17 04:18 Diabetes panel 02/23/17 Range/Units 04:18 Sodium 137 (136-145) mEq/L Potassium 3.7 (3.5-4.5) mEq/L Chloride 107 (98-109) mEq/L Carbon Dioxide 24 (19-29) mEq/L BUN 23 D (8-26) mg/dL Creatinine 1.36 H (0.72-1.25) mg/dL Glucose 102 H (70-99) mg/dL Calcium 7.6 L (8.6-10.8) mg/dL Calcium panel 02/23/17 Range/Units 04:18 Calcium 7.6 L (8.6-10.8) mg/dL Pituitary panel 02/23/17 Range/Units 04:18 Sodium 137 (136-145) mEq/L Potassium 3.7 (3.5-4.5) mEq/L Chloride 107 (98-109) mEq/L Carbon Dioxide 24 (19-29) mEq/L BUN 23 D (8-26) mg/dL Creatinine 1.36 H (0.72-1.25) mg/dL Glucose 102 H (70-99) mg/dL Calcium 7.6 L (8.6-10.8) mg/dL Adrenal panel 02/23/17 Range/Units 04:18 Sodium 137 (136-145) mEq/L Potassium 3.7 (3.5-4.5) mEq/L Chloride 107 (98-109) mEq/L Carbon Dioxide 24 (19-29) mEq/L BUN 23 D (8-26) mg/dL Creatinine 1.36 H (0.72-1.25) mg/dL Glucose 102 H (70-99) mg/dL Calcium 7.6 L (8.6-10.8) mg/dL Consult Discharge Plan - Plan Referrals: Kristopher Guerrero MD [Partnered Physician] - () Shoshana Lovelace CNP [Advanced Practice Nurse] - - Attending Attestation I examined this patient and my medical decision-making was reviewed with the Resident Physician. I agree with the documented findings, disposition and treatment plan as described except to the extent set forth below. I reviewed the above assessment and evaluation and agree with the above plan. Incision is CDI. No erythema present. No drainage. Positive bowel sounds. Advance diet as tolerated. Unknown etiology behind the rising WBC-agree with IV abx and Diflucan. <David Cardoso - Last Filed: 02/23/17 18:06> Date of Encounter: 02/23/17 Time of Encounter: 08:05 - Assessment and Plan (1) Small bowel obstruction Current Visit: Yes Status: Acute Postop day #3 status post open repair of right inguinal hernia and right orchiectomy Tolerating cardiac diet. Antibiotics - IV Zosyn and Diflucan. Discontinue IVF maintenance and cardona Bowel sounds and flatus present but no bowel movement since 2 days ago Continue supportive care, pain control Encouraged ICS and out of bed with assistance to chair Continue PT and OT Sitter and bed alarm (2) Right inguinal hernia Current Visit: Yes Status: Acute Postop day #3 status post open repair of right inguinal hernia and right orchiectomy See above (3) Leukocytosis Current Visit: Yes Status: Acute Leukocytosis trending up 13.7 > 11.2 > 13.3 > 15.8. Afebrile. Continue IV antibiotics Blood cultures show no growth We will continue to follow. Qualifiers: Leukocytosis type: unspecified Qualified Code(s): D72.829 - Elevated white blood cell count, unspecified (4) Acute on chronic kidney failure Current Visit: Yes Status: Resolved IV fluids 100 mL per hour. Creatinine trending down to to baseline at 1.36 Good urine output. Discontinue Cardona. Qualifiers: Acute renal failure type: unspecified Chronic kidney disease stage: stage 3 (moderate) Qualified Code(s): N17.9 - Acute kidney failure, unspecified; N18.3 - Chronic kidney disease, stage 3 (moderate) (5) CKD (chronic kidney disease) stage 3, GFR 30-59 ml/min Current Visit: Yes Status: Chronic (6) Lives in senior care Current Visit: Yes Status: Chronic Social work and occupational therapy following. Goal is to return to senior care. (7) Schizophrenia Current Visit: Yes Status: Chronic Patient is currently on home medication olanzapine Qualifiers: Schizophrenia type: unspecified Qualified Code(s): F20.9 - Schizophrenia, unspecified (8) DVT prophylaxis Current Visit: Yes Status: Acute Heparin, SCDs Subjective Patient reports: voiding w/o difficulty, afebrile Narrative: Patient is sitting comfortably upright in chair with sitter present. Per sitter , he pulled a peripheral line out yesterday. No bowel movement or flatus noted. Tolerating his diet well. Objective Vital Signs - Last 8 Hours Temp Pulse Resp BP Pulse Ox 02/23/17 07:27 98.6 F 67 18 114/66 94 02/23/17 04:00 99.1 F 67 18 126/75 95 02/23/17 00:23 98.2 F 75 18 121/75 93 Intake and Output 02/22/17 02/23/17 02/23/17 23:59 07:59 15:59 Intake Total 660 / 660 600 / 600 Output Total 800 / 800 1900 / 1900 Balance -140 / -140 -1300 / -1300 Intake: IV Fluids 600 / 600 600 / 600 0.45% Sodium Chloride 500 / 500 500 / 500 1000 Ml 1000 Ml 1,000 ML @ 100 mls/hr IVC .Q10H LEÓN Rx#:[id number] Zosyn 3.375 GM In 100 / 100 100 / 100 Dextrose 5% (Minibag+) 100 ML 100 ML @ 25 mls/hr IVPB Q12H LEÓN Rx#: [id number] Oral 60 / 60 0 / 0 Output: Catheter 800 / 800 1900 / 1900 Other: Meal Dinner Percent of Meal Consumed 50% Weight 69.5 kg Patient Weight 02/23/17 23:59 Weight 69.5 kg - General physical appearance well developed, well nourished, no distress - Eyes normal ocular movement - ENT [facility], atraumatic, normocephalic - Neck Neck exam: trachea midline - Respiratory normal expansion, normal respiratory effort, clear to auscultation - Cardiovascular Cardiovascular exam: Present: RRR - Abdomen Abdomen: Present: bowel sounds present, soft, non tender, wound (Right inguinal incision is clean dry and intact with Steri-Strips present. No erythema or drainage.) - Neurologic CN 2-12 grossly intact - Psychiatric oriented to person, oriented to place, speech is normal - Labs 02/23/17 04:18 02/23/17 04:18 Short CBC 02/23/17 Range/Units 04:18 WBC 15.8 H (4.3-11.1) K/mcL Hgb 10.7 L (12.9-16.9) g/dL Hct 32.8 L (37.5-50.1) % Plt Count 219 (140-400) K/mcL Neutrophils # 13.0 H (1.6-8.9) K/mcL BMP 02/23/17 Range/Units 04:18 Sodium 137 (136-145) mEq/L Potassium 3.7 (3.5-4.5) mEq/L Chloride 107 (98-109) mEq/L Carbon Dioxide 24 (19-29) mEq/L BUN 23 D (8-26) mg/dL Creatinine 1.36 H (0.72-1.25) mg/dL Glucose 102 H (70-99) mg/dL Calcium 7.6 L (8.6-10.8) mg/dL Vital Signs Temp Pulse Resp BP Pulse Ox 02/23/17 07:27 98.6 F 67 18 114/66 94 02/23/17 04:00 99.1 F 67 18 126/75 95 02/23/17 00:23 98.2 F 75 18 121/75 93 02/22/17 20:05 98.5 F 71 22 140/75 94 02/22/17 12:00 94 02/22/17 11:14 98.2 F 73 16 132/79 95 02/22/17 10:01 75 16 94 Intake and Output 02/22/17 02/23/17 02/23/17 23:59 07:59 15:59 Intake Total 660 / 660 600 / 600 Output Total 800 / 800 1900 / 1900 Balance -140 / -140 -1300 / -1300 Intake: IV Fluids 600 / 600 600 / 600 0.45% Sodium Chloride 500 / 500 500 / 500 1000 Ml 1000 Ml 1,000 ML @ 100 mls/hr IVC .Q10H LEÓN Rx#:[id number] Zosyn 3.375 GM In 100 / 100 100 / 100 Dextrose 5% (Minibag+) 100 ML 100 ML @ 25 mls/hr IVPB Q12H LEÓN Rx#: [id number] Oral 60 / 60 0 / 0 Output: Catheter 800 / 800 1900 / 1900 Other: Meal Dinner Percent of Meal Consumed 50% Weight 69.5 kg Patient Weight 02/23/17 23:59 Weight 69.5 kg - VTE Documentation of Mechanical Device: Intermittent pneumatic compression device
[2017-02-23] MEDS: Pantoprazole 40 MG VIAL IVP SCH (08:13)
[2017-02-23] MEDS: Aspirin Enteric Coated 81 MG Tablet PO SCH (08:13)
--- NOTE | 2017-02-23 09:22 | Internal Med Progress Note ---
Date of Encounter: 02/23/17 Time of Encounter: 09:20 - Assessment and plan (1) Sepsis Current Visit: Yes Status: Ruled-out Assessment and plan: Patient presented with leukocytosis, tachycardia and lactic acidosis, which is likely SIRS due to incarcerated inguinal hernia. Sepsis is less likely. Qualifiers: Sepsis type: sepsis due to unspecified organism Qualified Code(s): A41.9 - Sepsis, unspecified organism (2) Small bowel obstruction Current Visit: Yes Status: Acute Assessment and plan: Patient presented with incarcerated right-sided inguinal hernia, causing small bowel obstruction and lactic acidosis. Surgery is on board and patient underwent open primary repair of right inguinal hernia and right orchiectomy on February 20. Patient currently tolerates diet, his pain is controlled and he is ambulatory. He continues to have leukocytosis at 15.8. Continue IV Zosyn and Diflucan per surgery recommendations. Physical and occupational therapy evaluation noted, recommended placement in extended care facility. surgical services tech consulted. (3) Right inguinal hernia Current Visit: Yes Status: Acute (4) Acute on chronic kidney failure Current Visit: Yes Status: Resolved Assessment and plan: Likely related to dehydration, hypotension and small bowel obstruction. Improved. Serum creatinine is currently at baseline, around 1.3. Avoid nephrotoxic agents. Qualifiers: Acute renal failure type: unspecified Chronic kidney disease stage: stage 3 (moderate) Qualified Code(s): N17.9 - Acute kidney failure, unspecified; N18.3 - Chronic kidney disease, stage 3 (moderate) (5) Essential hypertension Current Visit: Yes Status: Chronic Assessment and plan: Blood pressure noted to be well controlled. Continue home medications. (6) Hypothyroidism Current Visit: Yes Status: Chronic Assessment and plan: Continue levothyroxine. Qualifiers: Hypothyroidism type: unspecified Qualified Code(s): E03.9 - Hypothyroidism , unspecified (7) CKD (chronic kidney disease) stage 3, GFR 30-59 ml/min Current Visit: Yes Status: Chronic (8) Schizophrenia Current Visit: Yes Status: Chronic Assessment and plan: Resume home medications. Patient has been started on one-on-one sitter overnight, as he was noted to be confused and disoriented and was pulling on IV lines and telemetry leads. He is currently noted to be more oriented and calm, may not need a sitter at this time. Qualifiers: Schizophrenia type: unspecified Qualified Code(s): F20.9 - Schizophrenia, unspecified - Subjective Interval history: Reports no pain; cannot provide history due to mental status. No bowel movements since 2 days, tolerates oral solid diet. - Constitutional Vitals: Temp Pulse Resp BP Pulse Ox 98.6 F 67 18 114/66 94 02/23/17 07:27 02/23/17 07:27 02/23/17 07:27 02/23/17 07:27 02/23/17 07:27 General appearance: Present: cooperative, A&O X 2. Absent: answers questions appropriately - Respiratory Respiratory exam: Present: CTAB. Absent: accessory muscle use, rales, rhonchi, wheezes - Cardiovascular Cardiovascular exam: Present: RRR, +S1, +S2. Absent: diastolic murmur, gallop, rubs, systolic murmur - GI/Abdominal GI/Abdominal exam: Present: normal bowel sounds, soft, no peritoneal signs. Absent: distended, tenderness - Extremities Exam Extremities exam: Present: full ROM, warm, radial pulses palpable and symetrical. Absent: calf tenderness, cyanotic, pedal edema Internal Medicine: Result - Labs CBC & Chem 7: 02/23/17 04:18 02/23/17 04:18 Labs: Short CBC 02/23/17 Range/Units 04:18 WBC 15.8 H (4.3-11.1) K/mcL Hgb 10.7 L (12.9-16.9) g/dL Hct 32.8 L (37.5-50.1) % Plt Count 219 (140-400) K/mcL Neutrophils # 13.0 H (1.6-8.9) K/mcL BMP 02/23/17 04:18 Sodium 137 Potassium 3.7 Chloride 107 Carbon Dioxide 24 BUN 23 D Creatinine 1.36 H Glucose 102 H Calcium 7.6 L - ABG Interpretation ABG results: PT/INR, D-dimer PT 12.9 Seconds (9.4-12.1) H 02/18/17 10:28 - VTE Documentation of Mechanical Device: Intermittent pneumatic compression device Consult Discharge Plan - Plan Referrals: Kristopher Guerrero MD [Partnered Physician] - () Shoshana Lovelace CNP [Advanced Practice Nurse] -
[2017-02-23] MEDS: OLANZapine 10 MG TAB.RAPDIS PO SCH (21:08)
[2017-02-24] MEDS: Piperacillin/Tazobactam 3.375 GM in D5% in Water (Mini-Bag+) 100 ML IVPB SCH ×2 (02:33→15:27)
[2017-02-24 03:45] LABS: Hematocrit 31.4 % (37.5-50.1); Hemoglobin 10.5 g/dL (12.9-16.9); Mean Corpuscular HGB Conc 33.4 g/dL (31.6-35.5); Mean Corpuscular Hemoglobin 29.8 pg (28.0-33.3); Mean Corpuscular Volume 89.2 fL (83.0-100.0); Mean Platelet Volume 11.4 fL (9.4-12.4); Platelet Count 210 K/mcL (140-400); Red Blood Count 3.52 M/mcL (4.19-5.50); Red Cell Distribution Width 13.2 % (11.5-14.5)
[2017-02-24 03:57] LABS: Calcium 7.9 mg/dL (8.6-10.8)
[2017-02-24 03:58] LABS: Potassium 3.9 mEq/L (3.5-4.5)
[2017-02-24 04:19] LABS: Lymphocytes # 3.4 K/mcL (0.6-4.6); Neutrophils # 10.1 K/mcL (1.6-8.9); Platelet Estimate Normal (Normal); Reactive Lymphocytes Present (Not Present)
[2017-02-24] MEDS: *HR* Heparin 5,000 UNIT/ML VIAL SQ SCH ×2 (05:50→17:38)
[2017-02-24] MEDS: Aspirin Enteric Coated 81 MG Tablet PO SCH (08:18)
[2017-02-24] MEDS: Fluconazole 200 MG/100 ML 200 MG/100 ML BAG IVPB SCH (08:18)
[2017-02-24] MEDS: Pantoprazole 40 MG VIAL IVP SCH (08:18)
--- NOTE | 2017-02-24 10:46 | Internal Med Progress Note ---
Date of Encounter: 02/24/17 Time of Encounter: 10:50 - Assessment and plan (1) Sepsis Current Visit: Yes Status: Ruled-out Assessment and plan: Patient presented with leukocytosis, tachycardia and lactic acidosis, which is likely SIRS due to incarcerated inguinal hernia. Sepsis is less likely. Qualifiers: Sepsis type: sepsis due to unspecified organism Qualified Code(s): A41.9 - Sepsis, unspecified organism (2) Small bowel obstruction Current Visit: Yes Status: Acute Assessment and plan: Patient presented with incarcerated right-sided inguinal hernia, causing small bowel obstruction and lactic acidosis. Surgery is on board and patient underwent open primary repair of right inguinal hernia and right orchiectomy on February 20. Patient currently tolerates diet, his pain is controlled and he is ambulatory. He continues to have leukocytosis at 16.9, slightly worsening. This is likely related to recent surgery along with the finding of necrotic testicle. Patient is asymptomatic, no fever and Blood cultures during this admission remained negative. Continue IV Zosyn and Diflucan per surgery recommendations. Physical and occupational therapy evaluation noted, recommended placement in extended care facility. therapeutic activities services worker consulted. (3) Right inguinal hernia Current Visit: Yes Status: Acute (4) Acute on chronic kidney failure Current Visit: Yes Status: Resolved Assessment and plan: Likely related to dehydration, hypotension and small bowel obstruction. Improved. Serum creatinine is currently at baseline, around 1.3. Avoid nephrotoxic agents. Qualifiers: Acute renal failure type: unspecified Chronic kidney disease stage: stage 3 (moderate) Qualified Code(s): N17.9 - Acute kidney failure, unspecified; N18.3 - Chronic kidney disease, stage 3 (moderate) (5) Essential hypertension Current Visit: Yes Status: Chronic Assessment and plan: Blood pressure noted to be well controlled. Continue home medications. (6) Hypothyroidism Current Visit: Yes Status: Chronic Assessment and plan: Continue levothyroxine. Qualifiers: Hypothyroidism type: unspecified Qualified Code(s): E03.9 - Hypothyroidism , unspecified (7) CKD (chronic kidney disease) stage 3, GFR 30-59 ml/min Current Visit: Yes Status: Chronic (8) Schizophrenia Current Visit: Yes Status: Chronic Qualifiers: Schizophrenia type: unspecified Qualified Code(s): F20.9 - Schizophrenia, unspecified - Subjective Interval history: Reports no pain; comfortable in bed, watching TV; tolerates diet and has bowel movements; no fever/chills. - Constitutional Vitals: Temp Pulse Resp BP Pulse Ox 97.1 F L 70 16 149/76 93 02/24/17 08:42 02/24/17 08:42 02/24/17 08:42 02/24/17 08:42 02/24/17 08:42 General appearance: Present: cooperative, A&O X 2, answers questions appropriately - Respiratory Respiratory exam: Present: CTAB. Absent: accessory muscle use, rales, rhonchi, wheezes - Cardiovascular Cardiovascular exam: Present: RRR, +S1, +S2. Absent: diastolic murmur, gallop, rubs, systolic murmur - GI/Abdominal GI/Abdominal exam: Present: normal bowel sounds, soft, no peritoneal signs. Absent: distended, tenderness Internal Medicine: Result - Labs CBC & Chem 7: 02/24/17 03:28 02/24/17 03:28 Labs: Short CBC 02/24/17 Range/Units 03:28 WBC 16.9 H (4.3-11.1) K/mcL Hgb 10.5 L (12.9-16.9) g/dL Hct 31.4 L (37.5-50.1) % Plt Count 210 (140-400) K/mcL Neutrophils # 10.1 H (1.6-8.9) K/mcL BMP 02/24/17 03:28 Sodium 140 Potassium 3.9 Chloride 111 H Carbon Dioxide 22 BUN 22 Creatinine 1.46 H Glucose 109 H Calcium 7.9 L - ABG Interpretation ABG results: PT/INR, D-dimer PT 12.9 Seconds (9.4-12.1) H 02/18/17 10:28 - VTE Documentation of Mechanical Device: Intermittent pneumatic compression device Consult Discharge Plan - Plan Referrals: Kristopher Guerrero MD [Partnered Physician] - () Shoshana Lovelace CNP [Advanced Practice Nurse] -
[2017-02-24] MEDS ORDERED: *HR* HYDROcodone/Acet 5/325 mg TABLET PO PRN (17:59)
--- NOTE | 2017-02-24 18:03 | General Surgery Progress Note ---
Date of Encounter: 02/24/17 Time of Encounter: 12:35 - Assessment and Plan (1) S/P right inguinal hernia repair Current Visit: Yes Status: Acute continue abx wound healing well tolerating cardiac diet added po pain medication (2) S/P orchiectomy Current Visit: Yes Status: Acute (3) Leukocytosis Current Visit: Yes Status: Acute continue abx currently patient without significant pain at surgical site, no erythema or drainage wound healing well trend wbc Qualifiers: Leukocytosis type: unspecified Qualified Code(s): D72.829 - Elevated white blood cell count, unspecified Subjective Patient reports: no new complaints, feels better, still having pain, pain is less, tolerating a regular diet, voiding w/o difficulty, flatus, bowel movement (incontinent stool) Objective Vital Signs - Last 8 Hours Temp Pulse Resp BP Pulse Ox 02/24/17 16:31 98.5 F 70 16 144/70 94 02/24/17 11:31 98.5 F 71 15 139/74 95 Intake and Output 02/24/17 02/24/17 02/24/17 07:59 15:59 23:59 Intake Total 220 / 220 240 / 240 Output Total 0 / 0 375 / 375 375 / 375 Balance 220 / 220 -135 / -135 -375 / -375 Intake: IV Fluids 100 / 100 Zosyn 3.375 GM In 100 / 100 Dextrose 5% (Minibag+) 100 ML 100 ML @ 25 mls/hr IVPB Q12H LEÓN Rx#: [id number] Oral 120 / 120 240 / 240 Output: Urine 0 / 0 375 / 375 375 / 375 Other: Meal Lunch Percent of Meal Consumed 5% Stool Size Small Stool Consistency loose soft Stool Color Brown # Voids 1 - General physical appearance well developed, well nourished, no distress - Eyes normal ocular movement - ENT normal mucosa, normocephalic - Neck Neck exam: trachea midline - Respiratory normal expansion, clear to auscultation - Cardiovascular Cardiovascular exam: Present: RRR - Abdomen Abdomen: Present: soft, tender (appropriate post op tenderness) - Incision Incision: Present: clean and dry, intact - Genitourinary other (some scrotal edema) - Integumentary no growths - Neurologic CN 2-12 grossly intact - Musculoskeletal normal posture - Psychiatric oriented to time, memory intact - Labs 02/24/17 03:28 07/29/17 03:28 Diabetes panel 02/24/17 Range/Units 03:28 Sodium 140 (136-145) mEq/L Potassium 3.9 (3.5-4.5) mEq/L Chloride 111 H (98-109) mEq/L Carbon Dioxide 22 (19-29) mEq/L BUN 22 (8-26) mg/dL Creatinine 1.46 H (0.72-1.25) mg/dL Glucose 109 H (70-99) mg/dL Calcium 7.9 L (8.6-10.8) mg/dL Calcium panel 02/24/17 Range/Units 03:28 Calcium 7.9 L (8.6-10.8) mg/dL Pituitary panel 02/24/17 Range/Units 03:28 Sodium 140 (136-145) mEq/L Potassium 3.9 (3.5-4.5) mEq/L Chloride 111 H (98-109) mEq/L Carbon Dioxide 22 (19-29) mEq/L BUN 22 (8-26) mg/dL Creatinine 1.46 H (0.72-1.25) mg/dL Glucose 109 H (70-99) mg/dL Calcium 7.9 L (8.6-10.8) mg/dL Adrenal panel 02/24/17 Range/Units 03:28 Sodium 140 (136-145) mEq/L Potassium 3.9 (3.5-4.5) mEq/L Chloride 111 H (98-109) mEq/L Carbon Dioxide 22 (19-29) mEq/L BUN 22 (8-26) mg/dL Creatinine 1.46 H (0.72-1.25) mg/dL Glucose 109 H (70-99) mg/dL Calcium 7.9 L (8.6-10.8) mg/dL - VTE Documentation of Mechanical Device: Intermittent pneumatic compression device Consult Discharge Plan - Plan Referrals: Kristopher Guerrero MD [Partnered Physician] - () Shoshana Lovelace CNP [Advanced Practice Nurse] -
[2017-02-24] MEDS: OLANZapine 10 MG TAB.RAPDIS PO SCH (21:56)
[2017-02-25] MEDS: Piperacillin/Tazobactam 3.375 GM in D5% in Water (Mini-Bag+) 100 ML IVPB SCH (02:37)
[2017-02-25 04:35] LABS: Hematocrit 33.4 % (37.5-50.1); Hemoglobin 10.7 g/dL (12.9-16.9); Mean Corpuscular Volume 90.5 fL (83.0-100.0); Mean Platelet Volume 11.4 fL (9.4-12.4); Nucleated Red Blood Cells 0.1 /100 WBC (0); Platelet Count 218 K/mcL (140-400); Red Blood Count 3.69 M/mcL (4.19-5.50); Red Cell Distribution Width 13.2 % (11.5-14.5)
[2017-02-25 04:55] LABS: Eosinophils # 0.3 K/mcL (0.0-0.6); Lymphocytes # 3.8 K/mcL (0.6-4.6); Monocytes # 0.6 K/mcL (0.0-1.3); Neutrophils # 10.7 K/mcL (1.6-8.9); Platelet Estimate Normal (Normal)
[2017-02-25] MEDS: *HR* Heparin 5,000 UNIT/ML VIAL SQ SCH ×2 (05:54→17:11)
[2017-02-25] MEDS: Fluconazole 200 MG/100 ML 200 MG/100 ML BAG IVPB SCH (08:19)
[2017-02-25] MEDS: Aspirin Enteric Coated 81 MG Tablet PO SCH (08:19)
--- NOTE | 2017-02-25 09:17 | Internal Med Progress Note ---
Date of Encounter: 02/25/17 Time of Encounter: 09:13 - Assessment and plan (1) Sepsis Current Visit: Yes Status: Ruled-out Qualifiers: Sepsis type: sepsis due to unspecified organism Qualified Code(s): A41.9 - Sepsis, unspecified organism (2) Small bowel obstruction Current Visit: Yes Status: Acute Assessment and plan: Patient presented with incarcerated right-sided inguinal hernia, causing small bowel obstruction and lactic acidosis. Surgery is on board and patient underwent open primary repair of right inguinal hernia and right orchiectomy on February 20. Patient currently tolerates diet, his pain is controlled and he is ambulatory. His leukocytosis is currently noted to be slightly improving, 15.7 today. This is likely related to recent surgery along with the finding of necrotic testicle, rather than an infection. Patient is asymptomatic, no fever and Blood cultures during this admission remained negative. We will change antibiotics to oral meds-Augmentin and fluconazole, to be continued for 5 more days. Physical and occupational therapy evaluation noted, recommended placement in extended care facility. hotel services supervisor consulted. (3) Right inguinal hernia Current Visit: Yes Status: Acute (4) Acute on chronic kidney failure Current Visit: Yes Status: Resolved Qualifiers: Acute renal failure type: unspecified Chronic kidney disease stage: stage 3 (moderate) Qualified Code(s): N17.9 - Acute kidney failure, unspecified; N18.3 - Chronic kidney disease, stage 3 (moderate) (5) Essential hypertension Current Visit: Yes Status: Chronic Assessment and plan: Blood pressure noted to be well controlled. Continue home medications. (6) Hypothyroidism Current Visit: Yes Status: Chronic Assessment and plan: Continue levothyroxine. Qualifiers: Hypothyroidism type: unspecified Qualified Code(s): E03.9 - Hypothyroidism , unspecified (7) CKD (chronic kidney disease) stage 3, GFR 30-59 ml/min Current Visit: Yes Status: Chronic (8) Schizophrenia Current Visit: Yes Status: Chronic Assessment and plan: Continue home medications. Patient is at baseline mental status, not requiring sitter at this time. Qualifiers: Schizophrenia type: unspecified Qualified Code(s): F20.9 - Schizophrenia, unspecified - Subjective Interval history: Reports no abdominal pain, nausea, vomiting. Tolerates oral diet. - Constitutional Vitals: Temp Pulse Resp BP Pulse Ox 98.6 F 78 17 118/63 93 02/25/17 03:27 02/25/17 03:27 02/25/17 03:27 02/25/17 03:27 02/25/17 03:27 General appearance: Present: cooperative, A&O X 2, answers questions appropriately - Respiratory Respiratory exam: Present: CTAB (coarse breath sounds B/L). Absent: accessory muscle use, rales, rhonchi, wheezes - Cardiovascular Cardiovascular exam: Present: RRR, +S1, +S2. Absent: diastolic murmur, gallop, rubs, systolic murmur - GI/Abdominal GI/Abdominal exam: Present: normal bowel sounds, soft, no peritoneal signs. Absent: distended, tenderness - Extremities Exam Extremities exam: Present: full ROM, warm, radial pulses palpable and symetrical. Absent: calf tenderness, cyanotic, pedal edema Internal Medicine: Result - Labs CBC & Chem 7: 02/25/17 04:09 02/24/17 03:28 Labs: Short CBC 02/25/17 Range/Units 04:09 WBC 15.7 H (4.3-11.1) K/mcL Hgb 10.7 L (12.9-16.9) g/dL Hct 33.4 L (37.5-50.1) % Plt Count 218 (140-400) K/mcL Neutrophils # 10.7 H (1.6-8.9) K/mcL - ABG Interpretation ABG results: PT/INR, D-dimer PT 12.9 Seconds (9.4-12.1) H 02/18/17 10:28 - VTE Documentation of Mechanical Device: Intermittent pneumatic compression device Consult Discharge Plan - Plan Referrals: Kristopher Guerrero MD [Partnered Physician] - () Shoshana Lovelace CNP [Advanced Practice Nurse] -
--- NOTE | 2017-02-25 12:01 | General Surgery Progress Note ---
Date of Encounter: 02/25/17 Time of Encounter: 12:00 - Assessment and Plan (1) S/P right inguinal hernia repair Current Visit: Yes Status: Acute continue abx due to elevated wbc wound healing well tolerating cardiac diet added po pain medication (2) S/P orchiectomy Current Visit: Yes Status: Acute (3) Leukocytosis Current Visit: Yes Status: Acute continue abx currently patient without significant pain at surgical site, no erythema or drainage wound healing well trend wbc Qualifiers: Leukocytosis type: unspecified Qualified Code(s): D72.829 - Elevated white blood cell count, unspecified Subjective Patient reports: no new complaints, pain is less, tolerating a regular diet, voiding w/o difficulty, bowel movement, afebrile Objective Intake and Output 02/24/17 02/25/17 02/25/17 23:59 07:59 15:59 Intake Total 700 / 700 240 / 240 Output Total 900 / 900 450 / 450 Balance -200 / -200 -210 / -210 Intake: IV Fluids 100 / 100 Zosyn 3.375 GM In 100 / 100 Dextrose 5% (Minibag+) 100 ML 100 ML @ 25 mls/hr IVPB Q12H [facility] Rx#: [id number] Oral 600 / 600 240 / 240 Output: Urine 900 / 900 450 / 450 Other: Meal Dinner Percent of Meal Consumed 50% Weight 64 kg Patient Weight 02/25/17 23:59 Weight 64 kg - General physical appearance well nourished, no distress - Eyes PERRL, normal ocular movement - ENT normal mucosa, normocephalic - Neck Neck exam: trachea midline - Respiratory normal expansion, clear to auscultation - Cardiovascular Cardiovascular exam: Present: RRR - Abdomen Abdomen: Present: bowel sounds present, soft, tender (minimal tenderness) - Incision Incision: Present: clean and dry, intact - Genitourinary other (scrotal edema, no erythema) - Integumentary no growths - Neurologic CN 2-12 grossly intact - Musculoskeletal normal posture - Psychiatric oriented to time, oriented to person, oriented to place, speech is normal, memory intact - Labs 02/25/17 04:09 02/24/17 03:28 Short CBC 02/25/17 Range/Units 04:09 WBC 15.7 H (4.3-11.1) K/mcL Hgb 10.7 L (12.9-16.9) g/dL Hct 33.4 L (37.5-50.1) % Plt Count 218 (140-400) K/mcL Neutrophils # 10.7 H (1.6-8.9) K/mcL Vital Signs Temp Pulse Resp BP Pulse Ox 02/25/17 03:27 98.6 F 78 17 118/63 93 02/24/17 19:08 98.4 F 70 16 136/72 95 02/24/17 16:31 98.5 F 70 16 144/70 94 Intake and Output 02/24/17 02/25/17 02/25/17 23:59 07:59 15:59 Intake Total 700 / 700 240 / 240 Output Total 900 / 900 450 / 450 Balance -200 / -200 -210 / -210 Intake: IV Fluids 100 / 100 Zosyn 3.375 GM In 100 / 100 Dextrose 5% (Minibag+) 100 ML 100 ML @ 25 mls/hr IVPB Q12H [facility] Rx#: [id number] Oral 600 / 600 240 / 240 Output: Urine 900 / 900 450 / 450 Other: Meal Dinner Percent of Meal Consumed 50% Weight 64 kg Patient Weight 02/25/17 23:59 Weight 64 kg - VTE Documentation of Mechanical Device: Intermittent pneumatic compression device Consult Discharge Plan - Plan Referrals: Kristopher Guerrero MD [Partnered Physician] - () Shoshana Lovelace CNP [Advanced Practice Nurse] -
[2017-02-25] MEDS: Amoxicillin/Clavulanate 500 MG TABLET PO SCH (17:11)
[2017-02-25] MEDS: OLANZapine 10 MG TAB.RAPDIS PO SCH (19:59)
[2017-02-26 04:58] LABS: Basophils # 0.1 K/mcL (0.0-0.2); Basophils % 0.4 %; Eosinophils # 0.4 K/mcL (0.0-0.6); Eosinophils % 2.5 %; Hematocrit 32.8 % (37.5-50.1); Hemoglobin 10.3 g/dL (12.9-16.9); Immature Granulocytes % 4.2 % (0-4); Lymphocytes # 3.4 K/mcL (0.6-4.6); Mean Corpuscular HGB Conc 31.4 g/dL (31.6-35.5); Mean Corpuscular Hemoglobin 28.5 pg (28.0-33.3); Mean Corpuscular Volume 90.6 fL (83.0-100.0); Mean Platelet Volume 11.1 fL (9.4-12.4); Monocytes # 1.1 K/mcL (0.0-1.3); Neutrophils # 8.6 K/mcL (1.6-8.9); Platelet Count 247 K/mcL (140-400); Red Blood Count 3.62 M/mcL (4.19-5.50); Red Cell Distribution Width 13.2 % (11.5-14.5); Segmented Neutrophils % 60.9 %
[2017-02-26 05:28] LABS: Platelet Estimate Normal (Normal)
[2017-02-26] MEDS: *HR* Heparin 5,000 UNIT/ML VIAL SQ SCH (05:52)
[2017-02-26] MEDS: Aspirin Enteric Coated 81 MG Tablet PO SCH (08:44)
[2017-02-26] MEDS: Amoxicillin/Clavulanate 500 MG TABLET PO SCH (08:44)
[2017-02-26] MEDS ORDERED: Fluconazole 100 MG TABLET PO SCH (09:00)
[2017-02-26] MEDS ORDERED: amLODIPine 5 MG TABLET PO SCH (11:30)
[2017-02-26] MEDS ORDERED: Naphazoline/Pheniramine Opth 15 ML BOTTLE LEFT EYE PRN (11:31)
--- NOTE | 2017-02-26 11:51 | Discharge Summary ---
Date of Encounter: 02/26/17 Time of Encounter: 11:15 - Discharge Diagnosis (1) Sepsis Priority: Primary Status: Ruled-out Qualifiers: Sepsis type: sepsis due to unspecified organism Qualified Code(s): A41.9 - Sepsis, unspecified organism (2) Small bowel obstruction Priority: Primary Status: Acute (3) Right inguinal hernia Priority: Primary Status: Acute (4) Acute on chronic kidney failure Priority: Primary Status: Resolved Qualifiers: Acute renal failure type: unspecified Chronic kidney disease stage: stage 3 (moderate) Qualified Code(s): N17.9 - Acute kidney failure, unspecified; N18.3 - Chronic kidney disease, stage 3 (moderate) (5) Essential hypertension Priority: Secondary Status: Chronic (6) Hypothyroidism Priority: Secondary Status: Chronic Qualifiers: Hypothyroidism type: unspecified Qualified Code(s): E03.9 - Hypothyroidism , unspecified (7) CKD (chronic kidney disease) stage 3, GFR 30-59 ml/min Priority: Secondary Status: Chronic (8) Schizophrenia Priority: Secondary Status: Chronic Qualifiers: Schizophrenia type: unspecified Qualified Code(s): F20.9 - Schizophrenia, unspecified - Discharge Medications Home Medications: Aspirin [Lo-Dose Aspirin EC] 81 mg PO QAM 02/19/17 [History] Atorvastatin [Lipitor] 10 mg PO HS 02/19/17 [History] Calcium Carbonate/Vitamin D3 [Calcium 500-Vit D3 200 Tablet] 0.5 tab PO BID [History] Citalopram [CeleXA] 20 mg PO DAILY 02/19/17 [History] Docusate Sodium [Dok] 100 mg PO BID 02/19/17 [History] Levothyroxine Sodium [Synthroid] 200 mcg PO DAILY 02/19/17 [History] OLANZapine [Zyprexa] 20 mg PO HS 02/19/17 [History] Amoxicillin/Clavulanate [Augmentin] 500 mg PO BIDWM #12 tab 02/26/17 [Rx] Fluconazole [Diflucan] 100 mg PO DAILY #6 tab 02/26/17 [Rx] amLODIPine [Norvasc] 5 mg PO DAILY tab 02/26/17 [Rx] Allergies/Adverse Reactions: Allergies No Known Allergies Allergy (Verified 02/18/17 10:04) Date of admission: 02/18/17 15:53 Primary care physician: PCP NONE Consults: 02/18/17 16:56 Consult to Biotechnologist [CONS] Routine Reason for SW Consult: May need placement 02/21/17 09:44 Consult to Occupational Therapy [CONS] Routine Comment: Evaluate, develop and implement POC Reason for Consult: RIGHT INGUINAL HERNIA REPAIR AND RIGHT ORICHECTOMY Consult to Physical Therapy [CONS] Routine Comment: Evaluate, develop and implement POC Reason for Consult: POST OP RIGHT INGUINAL HERNIA AND ORICHECTOMY Discharging clinician: Mary Fagan Anticipated date of discharge: 02/26/17 - Patient Status Disposition: Transfer SNF Condition: Fair Functional capacity at discharge: independent ambulation Overall status at discharge: patient is progressing back to baseline - Discharge Instructions Follow Up With: Rudi Lewis MD [Partnered Physician] - 03/08/17 4:15 pm (surgery follow- up) Kristopher Guerrero MD [Partnered Physician] - () Nino Pablo DO [Non-Partnered Physician] - 02/27/17 9:30 am Additional Instructions: F/up with PCP in 1-2 weeks #1 may shower, no tub bath for 2 weeks #2 wash incisions with soap and water and pat dry daily; apply dry dressing to right groin and tape to secure daily #3 no lifting, pushing, pulling more than 15 pounds for the next 2 weeks #4 no driving until off narcotics for 24 hours and able to safely react in the car #5 may climb stairs - Diet and Activity Activity: as per physical therapy Diet: low fat, low cholesterol, low salt diet Hospital course: Mr. Johnson is a 76 year old male with history of schizophrenia was admitted from assisted living facility with complaints of abdominal pain, nausea and vomiting. CT abdomen/pelvis showed small bowel obstruction due to incarcerated right inguinal hernia and right scrotal thickening. 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 Patient had an uneventful postoperative recovery except mild leukocytosis with initial days. He was started on empiric IV Zosyn and Diflucan per surgery recommendations. He is currently able to tolerate oral diet, participates in physical therapy and noted to have bowel movements. His leukocytosis is currently improving. Physical and occupational therapy evaluation was completed and recommended placement in extended care facility. He is medically stable for discharge today. He is noted to have developed acute watery and edematous eyelids of the left eye, concerning for allergic conjunctivitis or blepharitis. Case was discussed with ophthalmology and patient is scheduled for outpatient follow-up tomorrow. He will be discharged to extended care facility today. - Time Spent with Patient Total time spent providing and/or coordinating discharge services: Greater than 30 minutes (40 min) - Constitutional Vitals: Temp Pulse Resp BP Pulse Ox 98.2 F 71 15 166/75 97 02/26/17 11:25 02/26/17 11:25 02/26/17 11:25 02/26/17 11:25 02/26/17 11:25 General appearance: Present: cooperative, A&O X 2, mild distress, answers questions appropriately - Eye Eye exam: Present: conjunctival injection (left eyelid edema ?blepharitis; no purulent discharge or conjunctival injection; excessive tearing of left eye+), EOMI, PERRL - Cardiovascular Cardiovascular exam: Present: RRR, +S1, +S2. Absent: diastolic murmur, gallop, rubs, systolic murmur - VTE Documentation of Mechanical Device: Intermittent pneumatic compression device
--- NOTE | 2017-02-26 12:01 | General Surgery Progress Note ---
Date of Encounter: 02/26/17 Time of Encounter: 11:45 - Assessment and Plan (1) S/P right inguinal hernia repair Current Visit: Yes Status: Acute Postoperative day #6 from a right inguinal hernia repair with Dr. Lewis Pathology reviewed Continue antibiotics for 1 week Patient is tolerating a cardiac diet Dressing change to right groin daily Discharge planning to short-term rehabilitation today Plan for outpatient follow-up in the next 10-14 days (2) S/P orchiectomy Current Visit: Yes Status: Acute Postoperative day #6 Subjective Patient reports: no new complaints, feels better, still having pain, pain is less, tolerating a regular diet, voiding w/o difficulty, flatus, afebrile, other (Drainage noted from surgical incision) Objective Vital Signs - Last 8 Hours Temp Pulse Resp BP Pulse Ox 02/26/17 11:25 98.2 F 71 15 166/75 97 02/26/17 07:47 98.2 F 77 15 145/75 95 Intake and Output 02/25/17 02/26/17 02/26/17 23:59 07:59 15:59 Intake Total 440 / 440 0 / 0 720 / 720 Output Total 1175 / 1175 200 / 200 300 / 300 Balance -735 / -735 -200 / -200 420 / 420 Intake: Oral 440 / 440 0 / 0 720 / 720 Output: Urine 1175 / 1175 200 / 200 300 / 300 Other: Meal Dinner Breakfast Percent of Meal Consumed 75% 100% Weight 64.864 kg Patient Weight 02/26/17 23:59 Weight 64.864 kg - General physical appearance well developed, well nourished, no distress, no pain - Eyes normal ocular movement - ENT normal mucosa, atraumatic, normocephalic - Neck Neck exam: trachea midline - Respiratory normal respiratory effort, clear to auscultation - Cardiovascular Cardiovascular exam: Present: RRR - Abdomen Abdomen: Present: bowel sounds present, soft, tender (expected post-operative tenderness) - Incision Incision: Present: intact, serosanguinous (small amount of drainage noted) - Genitourinary other (scrotal edema noted) - Neurologic CN 2-12 grossly intact - Musculoskeletal normal gait, normal posture - Psychiatric oriented to time, oriented to person, oriented to place, speech is normal, memory intact - Labs 02/26/17 04:33 02/24/17 03:28 - VTE Documentation of Mechanical Device: Intermittent pneumatic compression device Consult Discharge Plan - Plan Additional Instructions: F/up with PCP in 1-2 weeks #1 may shower, no tub bath for 2 weeks #2 wash incisions with soap and water and pat dry daily; apply dry dressing to right groin and tape to secure daily #3 no lifting, pushing, pulling more than 15 pounds for the next 2 weeks #4 no driving until off narcotics for 24 hours and able to safely react in the car #5 may climb stairs Referrals: Rudi Lewis MD [Partnered Physician] - 03/08/17 4:15 pm (surgery follow- up) Kristopher Guerrero MD [Partnered Physician] - () Nino Pablo DO [Non-Partnered Physician] - Shoshana Lovelace CNP [Advanced Practice Nurse] -
--- NOTE | 2017-02-26 12:02 | Physician Discharge Referral ---
ExtendedCare Referral Info Transfer To: [place] Provider in Charge: Mary Fagan Provider in Charge after Transfer: PCP Institutional Level of Care: Skilled - Diagnosis (1) Sepsis Priority: Primary Status: Ruled-out (2) Small bowel obstruction Priority: Primary Status: Acute (3) Right inguinal hernia Priority: Primary Status: Acute (4) Acute on chronic kidney failure Priority: Primary Status: Resolved (5) Essential hypertension Priority: Secondary Status: Chronic (6) Hypothyroidism Priority: Secondary Status: Chronic (7) CKD (chronic kidney disease) stage 3, GFR 30-59 ml/min Priority: Secondary Status: Chronic (8) Schizophrenia Priority: Secondary Status: Chronic Expected Duration of Placement: 3 weeks Prognosis: Good Aware of Diagnosis: Patient Aware of Prognosis: Patient - Transfer Medications Home Medications: Aspirin [Lo-Dose Aspirin EC] 81 mg PO QAM 02/19/17 [History] Atorvastatin [Lipitor] 10 mg PO HS 02/19/17 [History] Calcium Carbonate/Vitamin D3 [Calcium 500-Vit D3 200 Tablet] 0.5 tab PO BID [History] Citalopram [CeleXA] 20 mg PO DAILY 02/19/17 [History] Docusate Sodium [Dok] 100 mg PO BID 02/19/17 [History] Levothyroxine Sodium [Synthroid] 200 mcg PO DAILY 02/19/17 [History] OLANZapine [Zyprexa] 20 mg PO HS 02/19/17 [History] Amoxicillin/Clavulanate [Augmentin] 500 mg PO BIDWM #12 tab 02/26/17 [Rx] Fluconazole [Diflucan] 100 mg PO DAILY #6 tab 02/26/17 [Rx] amLODIPine [Norvasc] 5 mg PO DAILY tab 02/26/17 [Rx] Allergies/Adverse Reactions: Allergies No Known Allergies Allergy (Verified 02/18/17 10:04) - Respiratory Orders Smoking Cessation: Smoking cessation has been advised. For more information, call the [employer] Tobacco Quit Line at 9-867-MPNJ-NOW. - Advance Directives Power of Family Court Justice: Yes Code Status: Full Code - Rehabiliation Orders Rehab Potential: Good Rehab Orders: ROM Exercises, Evaluation for Physical Therapy, Evaluation for Occupational Therapy - Diet Orders Renal, Cardiac CERTIFICATION: I certify that the transfer of the above named patient to an Extended Care Facility is necessary for the continuing treatment of the diagnosis listed. The above information is true and accurate reflection of patient's current condition. Confidential - Redisclosure prohibited without a patient's written consent.
[2017-02-26 13:34] VITALS: BP 133/69
== END 2017-02-26 15:29 | DRG 351 ==
LOC: EMEROO 10:00 → SUATTDRO 15:53 → 2NNU 15:53 → 3ANU 02-22 13:31
PROVIDERS: ADMIT Internal Medicine; ATTEND Internal Medicine

== ENCOUNTER 2017-10-02 23:38 | Inpatient (IN) ==
[2017-10-02] MEDS ORDERED: 0.9 % Sodium Chloride 1,000 ML IVC ONE (23:45)
[2017-10-02] MEDS ORDERED: Ipratropium/Albuterol Neb 3 ML IH ONE (23:47)
[2017-10-03 00:06] LABS: ABG Base Excess -5 mEq/L (-2 to 3); ABG HCO3 21 mEq/L (21-27); ABG Oxygen Saturation 97 % (95-98); ABG PCO2 40 mmHg (35-45); ABG PH 7.33 pH Units (7.32-7.45); ABG PO2 97 mmHg (85-104); ABG TCO2 22 mEq/L (20-26)
[2017-10-03 00:31] LABS: Basophils % 0.1 %; Hemoglobin 9.8 g/dL (12.9-16.9); Immature Granulocytes % 0.7 % (0-4); Lymphocytes # 0.8 K/mcL (0.6-4.6); Mean Corpuscular HGB Conc 31.6 g/dL (31.6-35.5); Mean Corpuscular Hemoglobin 27.8 pg (28.0-33.3); Mean Corpuscular Volume 88.1 fL (83.0-100.0); Mean Platelet Volume 10.9 fL (9.4-12.4); Monocytes % 11.9 %; Neutrophils # 13.6 K/mcL (1.6-8.9); Platelet Count 304 K/mcL (140-400); Red Blood Count 3.52 M/mcL (4.19-5.50); Red Cell Distribution Width 13.7 % (11.5-14.5); Segmented Neutrophils % 82.3 %
[2017-10-03 00:37] LABS: INR 1.4
[2017-10-03 00:40] LABS: Activated Partial Thrombo Time 30.8 Seconds (26.0-36.0)
--- NOTE | 2017-10-03 00:42 | Emergency Department Note ---
Disposition Clinical Impression: Community acquired pneumonia Qualifiers: Laterality: unspecified laterality Qualified Code(s): J18.9 - Pneumonia, unspecified organism Disposition: Admitted As Inpatient Condition: Good General Adult HPI - General Stated complaint: SoB Time Seen by Provider: 10/02/17 23:44 Source: EMS Mode of arrival: EMS Limitations: no limitations Nursing Notes Reviewed: Yes Vital Signs Reviewed: Yes - History of Present Illness HPI Narrative: 76-year-old [facility] from a [facility] with an extensive history that includes CHF, COPD, COPD, hypertension, schizophrenia, severe sepsis, hypertension, small bowel obstruction presents with EMS for difficulty breathing, altered mental status. EMS state on room air patient was between 75 and 80% with difficulty breathing. In route they gave him 2 nebulizer treatments and started an IV. Accompanied patient from the [facility]. Onset (ago): day(s) Location: chest Pain Scale: 0 Associated symptoms: Reports: cough, loss of appetite, malaise. Denies: confusion, chest pain, diaphoresis, fever/chills, headaches, nausea/vomiting, rash, seizure, shortness of breath, syncope, weakness - Related Data Home Medications Medication Instructions Recorded Confirmed Aspirin [Lo-Dose Aspirin EC] 81 mg PO QAM 02/19/17 02/19/17 Atorvastatin [Lipitor] 10 mg PO HS 02/19/17 02/19/17 Calcium Carbonate/Vitamin D3 0.5 tab PO BID 02/19/17 02/19/17 [Calcium 500-Vit D3 200 Tablet] Citalopram [CeleXA] 20 mg PO DAILY 02/19/17 02/19/17 Docusate Sodium [Dok] 100 mg PO BID 02/19/17 02/19/17 Levothyroxine Sodium [Synthroid] 200 mcg PO DAILY 02/19/17 02/19/17 OLANZapine [Zyprexa] 20 mg PO HS 02/19/17 02/19/17 Previous Rx's Medication Instructions Recorded Amoxicillin/Clavulanate [Augmentin] 500 mg PO BIDWM #12 tab 02/26/17 Fluconazole [Diflucan] 100 mg PO DAILY #6 tab 02/26/17 amLODIPine [Norvasc] 5 mg PO DAILY tab 02/26/17 Allergies Allergy/AdvReac Type Severity Reaction Status Date / Time No Known Allergies Allergy Verified 02/18/17 10:04 Review of Systems: Review of systems are difficult to get from patient as he does have an altered mental status as well as difficulty breathing he is unable to truly express a review of systems other than yes or no questions at times. Endorses shortness of breath and coughing, denies fever or chills, nausea, vomiting, diarrhea. All systems ED: reviewed and negative except as stated. Review of Systems: As Per HPI Past Medical History - Past Medical History Medical history: Reports: hyperlipidemia, hypertension, thyroid disease Psychiatric history: Reports: schizophrenia - Social History Smoking Status: Current every day smoker Smokeless Tobacco Status: No Alcohol use: Reports: unknown Drug use: Reports: none Physical Exam - General Limitations: no limitations General appearance: alert - Head Head exam: atraumatic, normocephalic, normal inspection - Eye Eye exam: Present: other (Glassy and dazed) - ENT ENT exam: mucous membranes dry, other (Lips cracked) - Neck Neck exam: Present: normal inspection, full ROM, trachea midline. Absent: lymphadenopathy - Chest Chest inspection: Present: normal inspection, symmetric chest wall rise - Respiratory Respiratory exam: Present: respiratory distress, wheezes, accessory muscle use - Expanded Respiratory Exam Location: rhonchi: Left, Right, Upper, Lower, decreased breath sounds: Left, Right, Lower - Cardiovascular Cardiovascular exam: Present: tachycardia, irregular rhythm, normal heart sounds - Abdominal Exam Abdominal exam: Present: soft, Non-Tender, normal bowel sounds - Expanded Lower Extremity Exam Hip/Pelvis exam: Present: normal inspection - Neurological Exam Neurological exam: Present: alert - Psychiatric Psychiatric exam: Present: anxious - Skin Skin exam: Present: warm, dry, intact, normal color Course Course Narrative: 76-year-old patient from a [facility] with an extensive history that includes CHF, COPD, COPD, hypertension, schizophrenia, severe sepsis, hypertension, small bowel obstruction presents with EMS for difficulty breathing, altered mental status. EMS state on room air patient was between 75 and 80% with difficulty breathing. In route they gave him 2 nebulizer treatments and started an IV. [facility]panied [facility] from the [facility]. Initial exam showed a patient in severe distress toxic appearing, with tachycardia and tachypnea. Lungs with minimal air movement, large amount of rhonchi throughout as well as wheezing. On nonrebreather mask with saturations between 91-93%. Patient had been on nonrebreather mask from at least the squad trip here. Patient does not really answer questions due to respirator distress and most likely anxiety. His eyes are darting around the room. He is exhibiting bitting a lot of effort of breathing with tachypnea around 45 respiration from it. Patient eventually calmed with staff and room respirations between 30 and 35 respirations minute after assessment. Patient appears dry as his lips are cracked. His mucous membranes are dry. Differential diagnosis includes sepsis, pneumonia, urosepsis, CHF exacerbation, acute exacerbation COPD, respiratory failure. We will start sepsis protocol. - Reevaluation(s) Reevaluation #1: ABGs, labs, chest x-ray reviewed as well as reassessment of patient. Patient is considerably Kollmar breathing easier with respirations between 26 and 30 a minute lungs continue with some wheezing. He is able to speak considerably better and speaks in half sentences. He is altered in his mental status however we are unsure of how much of this is due to illness or baseline. Patient is able to tell us that he does not feel good, he is able to answer some more questions. Patient does have leukocytosis with white count of 16.6, tachycardia, tachypnea , lactic acid 1.2, ABGs benign. We will admit this patient for pneumonia difficulty breathing, hypoxia. Dr. Koch with 1:1 patient agrees to plan of care. Weaning patient off the nonrebreather. Patient on 6 L nasal cannula and he is satting between 90-95 %. Time: 01:00 Reevaluation #2: Hospitalist Dr. Mckeon except patient's to medicine with a telemetry bed. Patient continues to rest comfortably and is now on 6 L nasal cannula. Continues to sat between 90-95%. We will transfer to hospitalist team at this time. Time: 01:30 Vital Signs Temperature 98.4 F 10/02/17 23:40 Pulse Rate 116 10/02/17 23:40 Respiratory Rate 30 10/02/17 23:40 Blood Pressure 117/63 10/02/17 23:40 O2 Sat by Pulse Oximetry 94 10/02/17 23:40 Temperature 98.4 F 10/03/17 03:22 Pulse Rate 96 10/03/17 03:22 Respiratory Rate 17 10/03/17 03:22 Blood Pressure 102/69 10/03/17 03:22 O2 Sat by Pulse Oximetry 94 10/03/17 03:22 Oxygen Delivery Oxygen Delivery Non Rebreather Mask Medical Decision Making - Medical Records Medical records reviewed: Yes I reviewed the patient's medical records. - Lab Data Lab results reviewed: Yes I reviewed the patient's lab results. Result diagrams: 10/03/17 00:10 10/03/17 00:10 Lab Results 10/03/17 10/03/17 10/03/17 Range/Units 00:03 00:10 00:10 WBC 16.6 H (4.3-11.1) K/mcL RBC 3.52 L (4.19-5.50) M/mcL Hgb 9.8 L (12.9-16.9) g/dL Hct 31.0 L (37.5-50.1) % MCV 88.1 (83.0-100.0) fL MCH 27.8 L (28.0-33.3) pg MCHC 31.6 (31.6-35.5) g/dL RDW 13.7 (11.5-14.5) % Plt Count 304 (140-400) K/mcL MPV 10.9 (9.4-12.4) fL Immature Gran % 0.7 (0-4) % Seg Neutrophils % 82.3 % Lymphocytes % 5.0 % Monocytes % 11.9 % Eosinophils % 0.0 % Basophils % 0.1 % Neutrophils # 13.6 H (1.6-8.9) K/mcL Lymphocytes # 0.8 (0.6-4.6) K/mcL Monocytes # 2.0 H (0.0-1.3) K/mcL Eosinophils # 0.0 (0.0-0.6) K/mcL Basophils # 0.0 (0.0-0.2) K/mcL PT 15.0 H (9.4-12.1) Seconds INR 1.4 APTT 30.8 (26.0-36.0) Seconds Sample Site R Radial ABG pH 7.33 (7.32-7.45) pH Units ABG pCO2 40 (35-45) mmHg ABG pO2 97 (85-104) mmHg ABG HCO3 21 (21-27) mEq/L ABG Total CO2 22 (20-26) mEq/L ABG O2 Saturation 97 (95-98) % ABG Base Excess -5 L (-2 to 3) mEq/L Javad Test Positive O2 Delivery Device NRB Inspired O2 15.0 (1-15=lpm [id number]=%) Sodium (136-145) mEq/L Potassium (3.5-5.1) mEq/L Chloride (98-107) mEq/L Carbon Dioxide (23-29) mEq/L BUN (8-23) mg/dL Creatinine (0.70-1.30) mg/dL Est GFR ( Amer) (> 60) Est GFR (Non-Af Amer) (> 60) BUN/Creatinine Ratio (6-26) Glucose (70-105) mg/dL Calculated Osmolality (280-300) Lactic Acid (0.5-2.2) mmol/L Calcium (8.6-10.3) mg/dL Phosphorus (2.7-4.5) mg/dL Magnesium (1.6-2.6) mg/dL Total Bilirubin (0.3-1.0) mg/dL Direct Bilirubin (0.0-0.2) mg/dL Indirect Bilirubin (0.0-1.2) mg/dL AST (13-39) Units/L ALT (7-52) Units/L Alkaline Phosphatase (34-104) Units/L Troponin I (< 0.04) ng/mL B-Natriuretic Peptide (Less than 100) pg/mL Serum Total Protein (6.4-8.9) g/dL Albumin (3.5-5.7) g/dL Globulin (2.4-3.5) g/dL Albumin/Globulin Ratio (1.1-2.2) Lipase (11-82) Units/L Urine Color (Yellow) Urine Clarity (Clear) Urine pH (5.0-8.0) pH Units Ur Specific [place] (1.010-1.025) Urine Protein (Neg-Trace) mg/dL Urine Glucose (UA) (Normal) mg/dL Urine Ketones (Negative) mg/dL Urine Blood (Negative) Urine Nitrite (Negative) Urine Bilirubin (Negative) Urine Urobilinogen (Normal) mg/dL Ur Leukocyte Esterase (Negative) Urine Microscopic RBC (0-3) per hpf Urine Microscopic WBC (0-3) per hpf Ur Squamous Epith Cells (None-Few) per lpf Urine Bacteria (None-Few) per hpf Hyaline Casts (None-Few) per lpf Ur Culture Indicated? (NO) Blood Type Antibody Screen 10/03/17 10/03/17 10/03/17 Range/Units 00:10 00:10 00:10 WBC (4.3-11.1) K/mcL RBC (4.19-5.50) M/mcL Hgb (12.9-16.9) g/dL Hct (37.5-50.1) % MCV (83.0-100.0) fL MCH (28.0-33.3) pg MCHC (31.6-35.5) g/dL RDW (11.5-14.5) % Plt Count (140-400) K/mcL MPV (9.4-12.4) fL Immature Gran % (0-4) % Seg Neutrophils % % Lymphocytes % % Monocytes % % Eosinophils % % Basophils % % Neutrophils # (1.6-8.9) K/mcL Lymphocytes # (0.6-4.6) K/mcL Monocytes # (0.0-1.3) K/mcL Eosinophils # (0.0-0.6) K/mcL Basophils # (0.0-0.2) K/mcL PT (9.4-12.1) Seconds INR APTT (26.0-36.0) Seconds Sample Site ABG pH (7.32-7.45) pH Units ABG pCO2 (35-45) mmHg ABG pO2 (85-104) mmHg ABG HCO3 (21-27) mEq/L ABG Total CO2 (20-26) mEq/L ABG O2 Saturation (95-98) % ABG Base Excess (-2 to 3) mEq/L Javad Test O2 Delivery Device Inspired O2 (1-15=lpm [id number]=%) Sodium 137 (136-145) mEq/L Potassium 4.4 (3.5-5.1) mEq/L Chloride 107 (98-107) mEq/L Carbon Dioxide 20 L (23-29) mEq/L BUN 60 H (8-23) mg/dL Creatinine 2.19 H (0.70-1.30) mg/dL Est GFR ( Amer) 36 L (> 60) Est GFR (Non-Af Amer) 29 L (> 60) BUN/Creatinine Ratio 27 H (6-26) Glucose 137 H (70-105) mg/dL Calculated Osmolality 303 H (280-300) Lactic Acid 1.2 (0.5-2.2) mmol/L Calcium 9.1 (8.6-10.3) mg/dL Phosphorus 3.6 (2.7-4.5) mg/dL Magnesium 1.6 (1.6-2.6) mg/dL Total Bilirubin 0.5 (0.3-1.0) mg/dL Direct Bilirubin 0.1 (0.0-0.2) mg/dL Indirect Bilirubin 0.4 (0.0-1.2) mg/dL AST 18 (13-39) Units/L ALT 13 (7-52) Units/L Alkaline Phosphatase 95 (34-104) Units/L Troponin I 0.79 H* (< 0.04) ng/mL B-Natriuretic Peptide 243 H (Less than 100) pg/mL Serum Total Protein 6.6 (6.4-8.9) g/dL Albumin 3.0 L (3.5-5.7) g/dL Globulin 3.6 H (2.4-3.5) g/dL Albumin/Globulin Ratio 0.8 L (1.1-2.2) Lipase 6 L (11-82) Units/L Urine Color (Yellow) Urine Clarity (Clear) Urine pH (5.0-8.0) pH Units Ur Specific [place] (1.010-1.025) Urine Protein (Neg-Trace) mg/dL Urine Glucose (UA) (Normal) mg/dL Urine Ketones (Negative) mg/dL Urine Blood (Negative) Urine Nitrite (Negative) Urine Bilirubin (Negative) Urine Urobilinogen (Normal) mg/dL Ur Leukocyte Esterase (Negative) Urine Microscopic RBC (0-3) per hpf Urine Microscopic WBC (0-3) per hpf Ur Squamous Epith Cells (None-Few) per lpf Urine Bacteria (None-Few) per hpf Hyaline Casts (None-Few) per lpf Ur Culture Indicated? (NO) Blood Type Antibody Screen 10/03/17 10/03/17 Range/Units 00:10 00:57 WBC (4.3-11.1) K/mcL RBC (4.19-5.50) M/mcL Hgb (12.9-16.9) g/dL Hct (37.5-50.1) % MCV (83.0-100.0) fL MCH (28.0-33.3) pg MCHC (31.6-35.5) g/dL RDW (11.5-14.5) % Plt Count (140-400) K/mcL MPV (9.4-12.4) fL Immature Gran % (0-4) % Seg Neutrophils % % Lymphocytes % % Monocytes % % Eosinophils % % Basophils % % Neutrophils # (1.6-8.9) K/mcL Lymphocytes # (0.6-4.6) K/mcL Monocytes # (0.0-1.3) K/mcL Eosinophils # (0.0-0.6) K/mcL Basophils # (0.0-0.2) K/mcL PT (9.4-12.1) Seconds INR APTT (26.0-36.0) Seconds Sample Site ABG pH (7.32-7.45) pH Units ABG pCO2 (35-45) mmHg ABG pO2 (85-104) mmHg ABG HCO3 (21-27) mEq/L ABG Total CO2 (20-26) mEq/L ABG O2 Saturation (95-98) % ABG Base Excess (-2 to 3) mEq/L Javad Test O2 Delivery Device Inspired O2 (1-15=lpm [id number]=%) Sodium (136-145) mEq/L Potassium (3.5-5.1) mEq/L Chloride (98-107) mEq/L Carbon Dioxide (23-29) mEq/L BUN (8-23) mg/dL Creatinine (0.70-1.30) mg/dL Est GFR ( Amer) (> 60) Est GFR (Non-Af Amer) (> 60) BUN/Creatinine Ratio (6-26) Glucose (70-105) mg/dL Calculated Osmolality (280-300) Lactic Acid (0.5-2.2) mmol/L Calcium (8.6-10.3) mg/dL Phosphorus (2.7-4.5) mg/dL Magnesium (1.6-2.6) mg/dL Total Bilirubin (0.3-1.0) mg/dL Direct Bilirubin (0.0-0.2) mg/dL Indirect Bilirubin (0.0-1.2) mg/dL AST (13-39) Units/L ALT (7-52) Units/L Alkaline Phosphatase (34-104) Units/L Troponin I (< 0.04) ng/mL B-Natriuretic Peptide (Less than 100) pg/mL Serum Total Protein (6.4-8.9) g/dL Albumin (3.5-5.7) g/dL Globulin (2.4-3.5) g/dL Albumin/Globulin Ratio (1.1-2.2) Lipase (11-82) Units/L Urine Color Yellow (Yellow) Urine Clarity Clear (Clear) Urine pH 5.5 (5.0-8.0) pH Units Ur Specific [place] 1.023 (1.010-1.025) Urine Protein 30 H (Neg-Trace) mg/dL Urine Glucose (UA) Normal (Normal) mg/dL Urine Ketones Negative (Negative) mg/dL Urine Blood Negative (Negative) Urine Nitrite Negative (Negative) Urine Bilirubin Negative (Negative) Urine Urobilinogen Normal (Normal) mg/dL Ur Leukocyte Esterase Negative (Negative) Urine Microscopic RBC 5-15 H (0-3) per hpf Urine Microscopic WBC 0-3 (0-3) per hpf Ur Squamous Epith Cells Many H (None-Few) per lpf Urine Bacteria None Seen (None-Few) per hpf Hyaline Casts None Seen (None-Few) per lpf Ur Culture Indicated? NO (NO) Blood Type O POSITIVE Antibody Screen NEGATIVE - Radiology Data Radiology results reviewed: Yes I reviewed the patient's radiology results. Chest X-Ray 10/03/17 23:45 IMPRESSION: Pulmonary edema with bibasilar atelectasis or pneumonia. D/ / Danyel Coe MD / Danyel Coe MD Interpreting Provider: Danyel Coe MD Attestation Statement - Attestation Attestation: I, Arsenio Koch, examined this patient and my medical decision-making was reviewed with the MANAGER HEALTH/PA/Advanced Practice Nurse/Resident Physician. I agree with the documented findings, disposition and treatment plan as described except to the extent set forth below. 76-year-old male presents emergency Department with concerns of difficulty in breathing. Patient has a significant history of COPD however he states that this does feel somewhat different. Patient improved with albuterol treatment in the emergency department. Patient has a leukocytosis and a possible infiltrate on chest x-ray. Patient will likely be started on antibiotics in the emergency department and admitted for treatment of pneumonia with possible sepsis.
[2017-10-03 01:02] LABS: Albumin/Globulin Ratio 0.8 (1.1-2.2); Bilirubin,Total 0.5 mg/dL (0.3-1.0); Calcium 9.1 mg/dL (8.6-10.3); Globulin 3.6 g/dL (2.4-3.5); Magnesium 1.6 mg/dL (1.6-2.6); Phosphorous 3.6 mg/dL (2.7-4.5); Potassium 4.4 mEq/L (3.5-5.1); Total Protein 6.6 g/dL (6.4-8.9); Troponin I 0.79 ng/mL (< 0.04)
[2017-10-03 01:10] LABS: Bilirubin,Urine Negative (Negative); Blood,Urine Negative (Negative); Clarity,Urine Clear (Clear); Color,Urine Yellow (Yellow); Glucose,Urine (UA) Normal (Normal); Ketones,Urine Negative (Negative); Leukocyte Esterase,Urine Negative (Negative); Nitrite,Urine Negative (Negative); PH,Urine 5.5 pH Units (5.0-8.0); Protein,Urine 30 mg/dL (Neg-Trace); Specific Gravity,Urine 1.023 (1.010-1.025); Urobilinogen,Urine Normal (Normal)
[2017-10-03 01:12] LABS: Bacteria,Urine None Seen per hpf (None-Few); Hyaline Casts,Urine None Seen per lpf (None-Few); Squamous Epithelial Cell,Urine Many per lpf (None-Few); WBC,Urine 0-3 per hpf (0-3)
[2017-10-03] MEDS ORDERED: cefTRIAXone 1,000 MG in Water for inj. (sterile) 20 ML 10 ML IVPB ONE (01:14)
[2017-10-03] MEDS ORDERED: methylPREDNISolone 125 MG/2 ML VIAL IVP ONE (01:16)
[2017-10-03 01:21] LABS: Bilirubin,Direct 0.1 mg/dL (0.0-0.2); Bilirubin,Indirect 0.4 mg/dL (0.0-1.2)
[2017-10-03] MEDS: Azithromycin 500 MG in D5% in Water 250 ML IVPB SCH (01:29)
[2017-10-03] MEDS ORDERED: Naloxone 0.4 MG/ML INJ IVP PRN (02:50)
[2017-10-03] MEDS ORDERED: *HR* Heparin 5,000 UNIT/ML VIAL IVP ONE (02:53)
[2017-10-03] MEDS ORDERED: *HR* Heparin 5,000 UNIT/ML VIAL IVP PRN ×2 (02:53)
[2017-10-03] MEDS ORDERED: Heparin 25,000 UNIT/500 ML D5W 25,000 UNIT/500 ML BAG IVC SCH (03:00)
--- NOTE | 2017-10-03 03:00 | Internal Med History&Physical ---
Date of Encounter: 10/03/17 Time of Encounter: 02:15 Assessment and Plan (1) Acute respiratory failure with hypoxia Current visit: Yes Status: Acute Patient presenting with acute hypoxic respiratory failure. Due to underlying pneumonia and COPD. Will treat with IV antibiotics, bronchodilators, O2 supplementation. High risk for complications. Admit inpatient. Patient will stay in the hospital for at least 2 midnights (2) COPD exacerbation Current visit: Yes Status: Acute Patient presented with bilateral wheezing. Will treat with bronchodilators, intravenous steroids and antibiotics along with O2 supplementation. (3) Non-ST elevation ID (NSTEMI) Current visit: Yes Status: Suspected Patient has elevation in troponin to 0.79. We will start patient on IV heparin. Consult cardiology. We will get 2-D echocardiogram. Trend troponins. Could be from demand ischemia and hypoxia with underlying acute kidney injury versus non-ST elevation ID (4) Sepsis Current visit: Yes Status: Suspected Patient presenting with leukocytosis and tachycardia with underlying pneumonia. Lactic acid normal. Will treat with IV antibiotics. Received IV fluids in the ER. Qualifiers: Sepsis type: Pneumococcus Qualified Code(s): A40.3 - Sepsis due to Streptococcus pneumoniae (5) Pneumonia Current visit: Yes Status: Suspected Chest x-ray shows bibasilar atelectasis or pneumonia. Patient does have leukocytosis and tachycardia on presentation. Concerning for pneumonia. We will treat with IV antibiotics. Follow culture results. Qualifiers: Pneumonia type: due to Pneumococcus Laterality: bilateral Lung location: lower lobe of lung Qualified Code(s): J13 - Pneumonia due to Streptococcus pneumoniae (6) Acute on chronic kidney failure Current visit: Yes Status: Acute Patient presenting with acute kidney injury. Creatinine up to 2.19. Received IV fluids in the ER. We will monitor renal function closely. At baseline, creatinine appears to be between 1.4 and 1.6. Qualifiers: Acute renal failure type: unspecified Chronic kidney disease stage: stage 3 (moderate) Qualified Code(s): N17.9 - Acute kidney failure, unspecified; N18.3 - Chronic kidney disease, stage 3 (moderate) (7) Essential hypertension Current visit: Yes Status: Chronic Blood pressure normal. We will monitor closely. Hold antihypertensives for systolic less than 100. (8) Schizophrenia Current visit: Yes Status: Chronic Continue home medications. Not having any acute psychosis at this time. Qualifiers: Schizophrenia type: unspecified Qualified Code(s): F20.9 - Schizophrenia, unspecified (9) DVT prophylaxis Current visit: No Status: Acute Patient currently on IV heparin. Internal Medicine - H&P: HPI Chief complaint: Shortness of breath Admitted From: Emergency Dept Plans for Post Hospital Care: Home History of present illness: Mr. Johnson is a 76 year old male with history of developmental delay who resides at a [facility] and has past medical history of CHF, COPD, hypertension , she just finished and small bowel obstruction presented to the ER with complaints of altered mental status and difficulty breathing. With his history of developmental delay he is unable to provide much history at this time. History has therefore been obtained through review of ED records. Patient was apparently hypoxic on room air at 75-80% and was having significant difficulty in breathing. As such he was given a bronchodilator nebulizer treatments and was brought into the ER here. Since then his symptoms appear to have improved. Patient denies any chest pain at this time. He denies any abdominal pain nausea or vomiting. Patient was tachycardic on arrival but afebrile. No recent hospitalizations within the past 3 months. Past Med Surg Social Fam HX - Past Medical History Source: patient Medical history: hyperlipidemia, hypertension, thyroid disease Psychiatric history: schizophrenia - Social History Smoking Status: Current every day smoker Smokeless Tobacco Status: No Alcohol use: unknown Drug use: none - Additional Family History Additional family history: Not able to obtain family history at this time. Internal Medicine - H&P: Meds Aspirin [Lo-Dose Aspirin EC] 81 mg PO QAM 02/19/17 [History] Atorvastatin [Lipitor] 10 mg PO HS 02/19/17 [History] Calcium Carbonate/Vitamin D3 [Calcium 500-Vit D3 200 Tablet] 0.5 tab PO BID [History] Citalopram [CeleXA] 20 mg PO DAILY 02/19/17 [History] Docusate Sodium [Dok] 100 mg PO BID 02/19/17 [History] Levothyroxine Sodium [Synthroid] 200 mcg PO DAILY 02/19/17 [History] OLANZapine [Zyprexa] 20 mg PO HS 02/19/17 [History] Amoxicillin/Clavulanate [Augmentin] 500 mg PO BIDWM #12 tab 02/26/17 [Rx] Fluconazole [Diflucan] 100 mg PO DAILY #6 tab 02/26/17 [Rx] amLODIPine [Norvasc] 5 mg PO DAILY tab 02/26/17 [Rx] 3 Allergy/AdvReac Type Severity Reaction Status Date / Time No Known Allergies Allergy Verified 02/18/17 10:04 All Systems PM: A 10-system review of systems was performed and is negative for pertinent findings except as documented above in the HPI. - Constitutional Constitutional: no chills, no fever(s), no night sweats - EENT Eyes: no change in vision, no discharge, no pain, no photophobia Ears: no ear discharge, no ear pain, no tinnitus Nose, mouth and throat: no dysphagia, no nasal discharge, no neck pain, no sore throat - Cardiovascular Cardiovascular ROS IM: no chest pain, no diaphoresis, no dyspnea, no lightheadedness, no palpitations, no syncope - Respiratory Respiratory: dyspnea, wheezing, no cough, no excessive phlegm production - Gastrointestinal Gastrointestinal: no abdominal pain, no diarrhea, no hematemesis, no hematochezia, no melena, no nausea, no vomiting - Musculoskeletal Musculoskeletal ROS IM: no numbness, no tingling - Integumentary Integumentary IM: no rash, no unusual bruising - Neurological Neurological ROS: no confusion, no convulsions, no focal weakness, no numbness, no tingling, no tremor(s) - Hematologic/Lymphatic Hematologic/Lymphatic: no easy bruising - Constitutional Vitals: Temp Pulse Resp BP Pulse Ox 98.4 F 93 20 91/52 95 10/02/17 23:40 10/03/17 02:33 10/03/17 02:33 10/03/17 02:33 10/03/17 02:33 General appearance: Present: cooperative, A&O X 1, pleasant Exam: Moderate distress - Neck Neck exam general surgery: Present: supple, trachea midline. Absent: lymphadenopathy - Respiratory Respiratory exam: Present: prolonged expiratory phase, wheezes. Absent: accessory muscle use, rales, rhonchi - GI/Abdominal GI/Abdominal exam: Present: normal bowel sounds, soft, no peritoneal signs. Absent: distended, tenderness - Extremities Exam Extremities exam: Present: warm, radial pulses palpable and symmetrical. Absent : calf tenderness, cyanotic, pedal edema - Neurological Exam Neurological exam: Present: CN II-XII intact, oriented X3, no focal deficits. Absent: facial droop, speech deficit - Skin Skin exam: Present: dry, intact Internal Med - H&P Results - Labs CBC & Chem 7: 10/03/17 00:10 10/03/17 00:10 - Impressions ITS Impressions Chest X-Ray 10/03/17 23:45 IMPRESSION: Pulmonary edema with bibasilar atelectasis or pneumonia. D/ / Danyel Coe MD / Danyel Coe MD Interpreting Provider: Danyel Coe MD
[2017-10-03] MEDS: Ipratropium/Albuterol Neb 3 ML IH SCH ×6 (04:17→23:18)
[2017-10-03 04:44] LABS: Basophils % 0.1 %; Hematocrit 27.7 % (37.5-50.1); Hemoglobin 8.7 g/dL (12.9-16.9); Immature Granulocytes % 1.1 % (0-4); Lymphocytes # 0.6 K/mcL (0.6-4.6); Lymphocytes % 3.8 %; Mean Corpuscular HGB Conc 31.4 g/dL (31.6-35.5); Mean Corpuscular Hemoglobin 27.5 pg (28.0-33.3); Mean Corpuscular Volume 87.7 fL (83.0-100.0); Mean Platelet Volume 11.3 fL (9.4-12.4); Monocytes # 1.2 K/mcL (0.0-1.3); Monocytes % 7.6 %; Neutrophils # 14.1 K/mcL (1.6-8.9); Platelet Count 283 K/mcL (140-400); Red Blood Count 3.16 M/mcL (4.19-5.50); Red Cell Distribution Width 13.5 % (11.5-14.5); Segmented Neutrophils % 87.4 %
[2017-10-03 05:03] LABS: Calcium 8.7 mg/dL (8.6-10.3); Potassium 4.4 mEq/L (3.5-5.1)
[2017-10-03 05:09] LABS: Platelet Estimate Normal (Normal)
[2017-10-03] MEDS ORDERED: methylPREDNISolone 125 MG/2 ML VIAL IVP SCH (08:00)
[2017-10-03] MEDS ORDERED: amLODIPine 5 MG TABLET PO SCH (09:00)
--- NOTE | 2017-10-03 14:51 | Cardiology Consult Note ---
<Mary Smith - Last Filed: 10/03/17 15:49> Date of Encounter: 10/03/17 Time of Encounter: 14:48 Assessment and Plan (1) Pneumonia Current Visit: Yes Status: Acute Per cardiology: -Admitted with pneumonia. -Management per primary service. Qualifiers: Pneumonia type: due to unspecified organism Laterality: unspecified laterality Lung location: unspecified part of lung Qualified Code(s): J18.9 - Pneumonia, unspecified organism (2) Elevated troponin Current Visit: Yes Status: Acute Per cardiology: -Troponin 0.79, 0.79, 0.58 in the setting of pneumonia, anemia, GRICELDA on CKD. -Denies chest pain. -No ischemic ECG changes. -TTE pending. -On heparin drip. Now with worsening anemia. -ON asa, statin, not on beta del due to hypotension. -DO not suspect NSTEMI, suspect demand ischemia related to above. NO cardiac rehab warranted at this time. -Further recommendatiosn pending TTE. -With worsening anemia, will stop heparin drip. (3) Anemia Current Visit: Yes Status: Acute Per cardiology: -Hgb today 8.7. -Baseline 10-11s. -Management per primary service. Qualifiers: Anemia type: unspecified type Qualified Code(s): D64.9 - Anemia, unspecified Discussion w patient/family: The assessment and plan as outlined above was discussed with the patient who expressed understanding and agreement. All questions were answered. Thank you for involving us in the care of your patient. Please call with any questions. Discussed and reviewed with . History of Present Illness Consult date: 10/03/17 Requesting physician: Darío Hernandez Consult reason: elevated troponin Chief complaint: shortness of breath History of present illness: Mr. Johnson is a 76 year old male with a relevant past medical history of HTN , CKD, schizophrenia, hypothyroidism. Patient presented to [facility] with complaints of increased shortness of breath. Patient deneis chest pain. Patient reports fatigue. Denies palpitations or fluttering. Denies bleeding or blood loss. Patient does admit to falls, but unable to quantify how many falls recently. Past Med Surg Social Fam HX - Past Medical History Attestation: Yes The following information was validated with the patient. Source: patient, old records reviewed Medical history: hyperlipidemia, hypertension, thyroid disease Psychiatric history: schizophrenia - Social History Smoking Status: Current every day smoker Smokeless Tobacco Status: No Alcohol use: unknown Drug use: none Medications and Allergies Aspirin [Lo-Dose Aspirin EC] 81 mg PO QAM 02/19/17 [History] Atorvastatin [Lipitor] 10 mg PO HS 02/19/17 [History] Calcium Carbonate/Vitamin D3 [Calcium 500-Vit D3 200 Tablet] 0.5 tab PO BID [History] Citalopram [CeleXA] 20 mg PO DAILY 02/19/17 [History] Docusate Sodium [Dok] 100 mg PO BID 02/19/17 [History] Levothyroxine Sodium [Synthroid] 200 mcg PO DAILY 02/19/17 [History] OLANZapine [Zyprexa] 20 mg PO HS 02/19/17 [History] Amlodipine Besylate/Benazepril [Lotrel 5-20 mg Capsule] 1 cap PO DAILY 10/03/17 [History] 3 Allergy/AdvReac Type Severity Reaction Status Date / Time No Known Allergies Allergy Verified 10/03/17 07:17 All Systems Review: The remainder of the systems were reviewed and are negative - Constitutional Constitutional: fatigue - Cardiovascular Cardiovascular: as per HPI, dyspnea at rest, dyspnea on exertion Physical Examination Vital Signs, Last 4 Hours Temp Pulse Resp BP Pulse Ox 10/03/17 11:55 66 16 91/50 93 10/03/17 11:25 97.6 F 68 19 90/56 91 General: Conversant, No Apparent Distress HEENT: Atraumatic, Normocephaly, Mucus Membranes Moist Neck: No JVD, Normal carotid pulses Cardiac: Reg Rate and Rhythm, Normal S1 and S2, No Murmur Lungs: Other (Lung sounds diminished throughout. ) Neuro: Alert and responsive, No focal deficits noted Abdomen: Soft, Non-Tender Skin: No rashes noted on visualized skin Musculoskeletal: No Chest Wall Tenderness Extremities: No Clubbing, No Cyanosis, No Edema, Normal Pulses Results 10/03/17 03:45 10/03/17 03:45 Lab Results Impressions Chest X-Ray 10/03/17 23:45 IMPRESSION: Pulmonary edema with bibasilar atelectasis or pneumonia. D/ / Danyel Coe MD / Danyel Coe MD Interpreting Provider: Danyel Coe MD Active Medications Albuterol/Ipratropium (Duoneb) 3 ml IH [id number] LEÓN PRN Reason: Protocol Stop: 04/04/18 04:01 Last Admin: 10/03/17 11:38 Dose: 3 ml Amlodipine Besylate (Norvasc) 5 mg PO DAILY LEÓN PRN Reason: Protocol Stop: 04/04/18 09:01 Last Admin: 10/03/17 09:04 Dose: Not Given Aspirin (Aspirin) 81 mg PO DAILY LEÓN Stop: 04/05/18 09:01 Atorvastatin Calcium (Lipitor) 10 mg PO HS LEÓN Stop: 04/04/18 21:01 Citalopram Hydrobromide (Celexa) 20 mg PO DAILY LEÓN Stop: 04/04/18 09:01 Last Admin: 10/03/17 09:04 Dose: 20 mg Heparin Sodium (Porcine) (Heparin) 4,000 unit IVP Q6HR PRN PRN Reason: SEE COMMENTS Stop: 04/04/18 02:54 Heparin Sodium (Porcine) (Heparin) 2,000 unit IVP Q6H PRN PRN Reason: SEE COMMENTS Stop: 04/04/18 02:54 Last Admin: 10/03/17 09:50 Dose: 2,000 unit Azithromycin 500 mg/ Dextrose 250 mls @ 252 mls/hr IVPB Q24H LEÓN Stop: 04/04/18 02:01 Last Infusion: 10/03/17 07:00 Dose: Infused Heparin Sodium/Dextrose (Heparin 25,000 Unit/500 Ml D5w) 25,000 unit in 500 mls @ 18.507 mls/hr IVC .Q24H LEÓN; 12 UNIT/KG/HR PRN Reason: Protocol Stop: 04/04/18 03:01 Last Titration: 10/03/17 09:44 Dose: 13.94 unit/kg/hr, 21.5 mls/hr Ceftriaxone Sodium 1,000 mg/ (Sterile Water) 10 mls @ 300 mls/hr IVP DAILY@ 1800 LEÓN Stop: 04/04/18 18:01 Levothyroxine Sodium (Synthroid) 200 mcg PO DAILY LEÓN Stop: 04/04/18 09:01 Last Admin: 10/03/17 09:03 Dose: 200 mcg Naloxone HCl (Narcan) 0.4 mg IVP Q2MIN PRN PRN Reason: SEE COMMENTS Stop: 04/04/18 02:51 Olanzapine (Zyprexa Zydis) 20 mg PO HS LEÓN Stop: 04/04/18 21:01 Laboratory Tests 10/03/17 10/03/17 10/03/17 00:10 00:10 00:10 WBC 16.6 H Hgb 9.8 L INR 1.4 Creatinine 2.19 H Troponin I 0.79 H* 10/03/17 10/03/17 10/03/17 03:45 03:45 08:56 WBC Hgb INR Creatinine 1.99 H Troponin I 0.79 H* 0.58 H* - Imaging and Cardiology Chest Xray: report reviewed Echo: pending - EKG Interpretation EKG results cardiology: personally reviewed (ECG with ST, frequent PACs.), other (Telemetry reviewed with average HR previous 12 hours noted to be 78, SR with possible intermittent atrial tachycardia.) Consult Discharge Plan - Plan Referrals: Kristopher Guerrero MD [Primary Care Provider] - (Web request sent 10/03 at 8:13 am) <[email or web address] - Last Filed: 10/03/17 17:27> Date of Encounter: 10/03/17 - Attending Attestation I examined this patient and my medical decision-making was reviewed with the ACTUARIAL CLERK. I agree with the documented findings, disposition and treatment plan as described. Mr. Johnson presented with SOB and is being treated for pneumonia. Troponins noted to be elevated in setting of ARF on CKD. Echo returned demonstrating preserved LVEF with mild segmental LV wall dysfunction. Patient denies chest pain and there are no new ischemic ECG changes. Discussed this with the patient who does not demonstrate full comprehension of his medical course. He does not appear to be a good candidate for [facility] overall. There also doesn't appear to be an urgent need given preserved LVEF. Moreover, blood counts decreased during admission and have been declining since January 2017. Recommend anemia workup. In the interim, ideally would continue low dose aspirin and statin. Heparin drip stopped given low blood counts. Not on BB due to borderline blood pressures. We will sign off at this time. Please call with any questions or further assistance in the care of this patient. Assessment and Plan Discussion w patient/family: The assessment and plan as outlined above was discussed with the patient and/or family members who expressed understanding and agreement. All questions were answered. Thank you for involving us in the care of your patient. Please call with any questions. History of Present Illness History of present illness: Mr. Johnson is a 76 year old male All Systems Review: The remainder of the systems were reviewed and are negative Physical Examination Vital Signs, Last 4 Hours Temp Pulse Resp BP Pulse Ox 10/03/17 16:44 98.4 F 61 19 103/55 100 10/03/17 16:34 16 94 10/03/17 15:40 79 Results 10/03/17 03:45 10/03/17 03:45 Lab Results 10/03/17 10/03/17 10/03/17 08:56 08:56 15:49 APTT 47.7 H D 43.9 H Troponin I 0.58 H*
--- NOTE | 2017-10-03 15:49 | Event Note ---
<Rehan Dinh - Last Filed: 10/03/17 17:37> Date of Encounter: 10/03/17 Time of Encounter: 15:41 Patient is a 76-year-old male with a past medical history of CHF, COPD, hypertension, schizophrenia, SBO presenting to the hospital for altered mental status and respiratory distress. Patient required nonrebreather mask in the ED. He was meeting sepsis criteria. ED lab work showed a leukocytosis of 16.1 with a left shift. A benign blood gas. Patient also had an elevated creatinine , however this appears to be somewhat chronic. Troponin was also elevated at 0.79. UA was negative. BNP 243. CXR showed pulmonary edema with bibasilar atelectasis or pneumonia. Patient states he is feeling improved but remains difficulty in breathing. VS 97.0F, P 74, RR16, BP 104/56, 94 on 4L PE: Patient in mild respiratory distress. Speaks with breaths between each sentence. Lungs have ronchi bilaterally more so in the bases. Bilateral lower extremity edema +1 Acute Respiratory Failure with Hypoxia -Underlying COPD, more likely pneumonia given exam -CXR shows pulmonary edema with bibasilar atelectasis or pneumonia Plan: -IV antibiotics: Rocephin 1g and Azithro 500 -Bronchodilators, O2 supplementation COPD -Not actively wheezing on exam. -Plan: bronchodilators Q4H, hold steroids tomorrow and reassess Elevated Troponin -Repeat troponin trended down 0.79 -> Third 0.58 -IV heparin initiated -Consult Cardiology: demand ischemia and hypoxia vs underlying GRICELDA injury versus NSTEMI -Consider CHF exacerbation cant give Lasix, pulmonary edema, echo more info -Plan: Cardiology input, pending echo. Sepsis -Leukocytosis and tachycardia -Pneumonia mostlikley -Lactic Acid Normal -Plan: Continue IV antibiotics. Blood cultures pending. Hold further fluids at this time, concern for volume overload with pulmonary edema Anemia -Hgb 01/2017 was 10.3 today 9.8 to 8.7 after fluids Continue to monitor -Iron panel ordered, appears to be trending down over long period of time considering iron deficient -Denies source of bleeding Acute on Chronic kidney failure -GRICELDA Creatinine at 2.19 improved 1.99. Baseline 1.4-1.6 -Plan: Hold fluids for now, avoid nephrotoxins -Hold Amolodipine DVT Prophylaxis -Currently on IV heparin <Long Andrea - Last Filed: 10/03/17 18:00> Date of Encounter: 10/03/17 - Attending Attestation I examined this patient and my medical decision-making was reviewed with the Resident Physician. I agree with the documented findings, disposition and treatment plan as described except to the extent set forth below.
[2017-10-03] MEDS ORDERED: cefTRIAXone 1,000 MG in Water for inj. (sterile) 20 ML 10 ML IVP SCH (18:00)
[2017-10-03] MEDS: OLANZapine 10 MG TAB.RAPDIS PO SCH (20:06)
--- NOTE | 2017-10-03 20:08 | Electrocardiograph Report ---
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
[2017-10-04] MEDS ORDERED: 0.9 % Sodium Chloride 1,000 ML IVC ONE (00:40)
[2017-10-04] MEDS ORDERED: 0.9 % Sodium Chloride 1,000 ML ONE (00:42)
[2017-10-04] MEDS: Azithromycin 500 MG in D5% in Water 250 ML IVPB SCH (02:30)
[2017-10-04] MEDS: Ipratropium/Albuterol Neb 3 ML IH SCH ×6 (04:27→23:31)
[2017-10-04 04:46] LABS: Red Cell Distribution Width 13.8 % (11.5-14.5)
[2017-10-04 04:48] LABS: Hematocrit 28.4 % (37.5-50.1); Mean Corpuscular HGB Conc 31.7 g/dL (31.6-35.5); Mean Corpuscular Hemoglobin 28.1 pg (28.0-33.3); Mean Corpuscular Volume 88.8 fL (83.0-100.0); Mean Platelet Volume 11.6 fL (9.4-12.4); Platelet Count 297 K/mcL (140-400)
[2017-10-04 05:36] LABS: Calcium 9.2 mg/dL (8.6-10.3); Potassium 3.9 mEq/L (3.5-5.1)
[2017-10-04 05:42] LABS: Lymphocytes # 1.5 K/mcL (0.6-4.6); Monocytes # 0.5 K/mcL (0.0-1.3); Neutrophils # 23.5 K/mcL (1.6-8.9); Platelet Estimate Normal (Normal)
[2017-10-04] MEDS: Aspirin 81 MG TAB.CHEW PO SCH (07:55)
[2017-10-04 13:23] LABS: Adenovirus Not Detected (Not Detect); Bordetella Pertussis Not Detected (Not Detect); Chlamydophila pneumoniae Not Detected (Not Detect); Coronavirus 229E Not Detected (Not Detect); Coronavirus HKU1 Not Detected (Not Detect); Coronavirus NL63 Not Detected (Not Detect); Coronavirus OC43 Not Detected (Not Detect); Human Metapneumovirus Not Detected (Not Detect); Human Rhinovirus/Enterovirus ***DETECTED*** (Not Detect); Influenza A Subtype 2009 H1 Not Detected (Not Detect); Influenza A Untypeable Not Detected (Not Detect); Influenza B Not Detected (Not Detect); Mycoplasma pneumoniae Not Detected (Not Detect); Parainfluenza Virus 1 Not Detected (Not Detect); Parainfluenza Virus 2 Not Detected (Not Detect); Parainfluenza Virus 3 Not Detected (Not Detect); Parainfluenza Virus 4 Not Detected (Not Detect); Respiratory Syncytial Virus Not Detected (Not Detect)
[2017-10-04] MEDS ORDERED: Dextrose Gel 15 GM/37.5 ML TUBE PO PRN ×2 (15:41)
[2017-10-04] MEDS ORDERED: D5% in Water 1,000 ML IVC PRN (15:41)
[2017-10-04] MEDS ORDERED: *HR* Dextrose 50 % in Water (Syg) 50 ML SYRINGE IVP PRN (15:41)
--- NOTE | 2017-10-04 15:56 | Internal Med Progress Note ---
<Rehan Dinh - Last Filed: 10/04/17 15:47> Date of Encounter: 10/04/17 Time of Encounter: 15:47 - Assessment and plan (1) Sepsis Current Visit: Yes Status: Suspected Assessment and plan: Leukocytosis and tachycardia most likely due to pneumonia Patient White blood cell count worse today 16.1 -> 25.5 Plan: - Due to elevation in white count plan is escalate antibiotic therapy: Adding day 1 of vancomycin, Levaquin and Zosyn to be renally dosed. - Continue to monitor patient's mental status today he does appear improved - Patient finished 4 L of fluid since arrival to the hospital hold fluids for now. - We will check a TSH due to patient's low blood pressure. Qualifiers: Sepsis type: sepsis due to unspecified organism Qualified Code(s): A41.9 - Sepsis, unspecified organism (2) Acute respiratory failure with hypoxia Current Visit: Yes Status: Acute Assessment and plan: History of underlying COPD most likely due to pneumonia with chest x-ray showing bibasilar atelectasis versus pneumonia Plan: - Escalating antibiotics as discussed above continue to monitor patient requiring 3L nasal cannula (3) Elevated troponin Current Visit: Yes Status: Acute Assessment and plan: Most likely due to demand ischemia. Heparin was stopped yesterday. Echo showed LVEF of 55%. (4) Anemia Current Visit: Yes Status: Acute Assessment and plan: Iron panel performed and interpreted as consistent with anemia of chronic disease versus iron deficiency. Hemoglobin remained stable today we will continue to monitor. Qualifiers: Anemia type: unspecified type Qualified Code(s): D64.9 - Anemia, unspecified (5) Acute on chronic kidney failure Current Visit: Yes Status: Acute Assessment and plan: Patient's creatinine improved today from 1.99-1.70 which is baseline is 1.4-1.6. Qualifiers: Acute renal failure type: unspecified Chronic kidney disease stage: stage 3 (moderate) Qualified Code(s): N17.9 - Acute kidney failure, unspecified; N18.3 - Chronic kidney disease, stage 3 (moderate) (6) History of COPD Current Visit: Yes Status: Acute Assessment and plan: Continue bronchodilators every 4 hours, patient is receiving steroids no longer. Symptoms most likely due to pneumonia. (7) DVT prophylaxis Current Visit: No Status: Acute Assessment and plan: PCDs. - Subjective Interval history: Patient is a 76-year-old male with a past medical history of CHF, COPD, hypertension, schizophrenia, SBO presenting to the hospital for altered mental status and respiratory distress. Admitted to the ER with current treatment for community acquired pneumonia, patient comes from a half-way. Today the patient appears improved when compared to yesterday he is more alert and oriented and he answers my questions appropriately. She admits to continuing to have difficulty with breathing. 10 ROS completed and is negative except as stated in history of present illness - Constitutional Vitals: Temp Pulse Resp BP Pulse Ox 98.2 F 88 19 105/63 93 10/04/17 15:44 10/04/17 15:44 10/04/17 15:44 10/04/17 15:44 10/04/17 15:44 General appearance: Present: cooperative, A&O X 2, pleasant, no acute distress Exam: Patient states he is at [facility] in [place], [place]. - Head Head exam: Present: atraumatic, normal inspection, normocephalic - Eye Eye exam: Present: normal appearance, PERRL - Neck Neck exam general surgery: Present: normal inspection, nuchal rigidity - Respiratory Respiratory exam: Present: rales, respiratory distress (mild) Additional comments: bilateral bases - Cardiovascular Cardiovascular exam: Present: RRR, +S1, +S2 - GI/Abdominal GI/Abdominal exam: Present: normal bowel sounds, soft, no peritoneal signs. Absent: tenderness - Extremities Exam Extremities exam: Present: normal capillary refill, normal inspection, warm. Absent: pedal edema, tenderness - Back Exam Back exam: Present: normal inspection - Neurological Exam Neurological exam: Present: alert, no focal deficits - Psychiatric Psychiatric exam: Present: normal affect, normal mood - Skin Skin exam: Present: intact, normal color, warm Internal Medicine: Result - Labs CBC & Chem 7: 10/04/17 04:08 10/04/17 04:08 Labs: Short CBC 10/04/17 Range/Units 04:08 WBC 25.5 H D (4.3-11.1) K/mcL Hgb 9.0 L (12.9-16.9) g/dL Hct 28.4 L (37.5-50.1) % Plt Count 297 (140-400) K/mcL Neutrophils # 23.5 H (1.6-8.9) K/mcL BMP 10/04/17 04:08 Sodium 140 Potassium 3.9 Chloride 115 H Carbon Dioxide 18 L BUN 60 H Creatinine 1.70 H Glucose 269 H Calcium 9.2 - ABG Interpretation ABG results: ABG ABG pH 7.33 pH Units (7.32-7.45) 10/03/17 00:03 ABG pCO2 40 mmHg (35-45) 10/03/17 00:03 ABG pO2 97 mmHg (85-104) 10/03/17 00:03 ABG O2 Saturation 97 % (95-98) 10/03/17 00:03 PT/INR, D-dimer PT 15.0 Seconds (9.4-12.1) H 10/03/17 00:10 Consult Discharge Plan - Plan Referrals: Kristopher Guerrero MD [Primary Care Provider] - 10/10/17 1:30 pm () <Long Andrea - Last Filed: 10/04/17 18:48> Date of Encounter: 10/04/17 - Constitutional Vitals: Temp Pulse Resp BP Pulse Ox 98.2 F 88 16 105/63 93 10/04/17 16:05 10/04/17 16:05 10/04/17 16:39 10/04/17 16:39 10/04/17 16:39 Internal Medicine: Result - Labs CBC & Chem 7: 10/04/17 04:08 10/04/17 04:08 Labs: Short CBC 10/04/17 Range/Units 04:08 WBC 25.5 H D (4.3-11.1) K/mcL Hgb 9.0 L (12.9-16.9) g/dL Hct 28.4 L (37.5-50.1) % Plt Count 297 (140-400) K/mcL Neutrophils # 23.5 H (1.6-8.9) K/mcL BMP 10/04/17 04:08 Sodium 140 Potassium 3.9 Chloride 115 H Carbon Dioxide 18 L BUN 60 H Creatinine 1.70 H Glucose 269 H Calcium 9.2 - ABG Interpretation ABG results: ABG ABG pH 7.33 pH Units (7.32-7.45) 10/03/17 00:03 ABG pCO2 40 mmHg (35-45) 10/03/17 00:03 ABG pO2 97 mmHg (85-104) 10/03/17 00:03 ABG O2 Saturation 97 % (95-98) 10/03/17 00:03 PT/INR, D-dimer PT 15.0 Seconds (9.4-12.1) H 10/03/17 00:10 - Attending Attestation I examined this patient and my medical decision-making was reviewed with the Resident Physician. I agree with the documented findings, disposition and treatment plan as described except to the extent set forth below.
[2017-10-04] MEDS: Insulin LISPRO 300 UNITS/3 ML VIAL SQ SCH (17:20)
[2017-10-04] MEDS: Levofloxacin 750 MG/150 ML 750 MG/150 ML BAG IVPB SCH (18:25)
[2017-10-04] MEDS: Piperacillin/Tazobactam 3.375 GM in 0.9 % Sodium Chloride Mini Bag 100 ML IVPB SCH (18:45)
[2017-10-04] MEDS: OLANZapine 10 MG TAB.RAPDIS PO SCH (20:47)
[2017-10-05] MEDS: Ipratropium/Albuterol Neb 3 ML IH SCH ×5 (03:44→20:09)
[2017-10-05 04:08] LABS: Basophils % 0.1 %; Hemoglobin 8.7 g/dL (12.9-16.9); Lymphocytes # 1.9 K/mcL (0.6-4.6); Mean Corpuscular HGB Conc 31.1 g/dL (31.6-35.5); Mean Corpuscular Hemoglobin 27.1 pg (28.0-33.3); Mean Corpuscular Volume 87.2 fL (83.0-100.0); Monocytes # 1.6 K/mcL (0.0-1.3); Monocytes % 5.2 %; Neutrophils # 27.1 K/mcL (1.6-8.9); Platelet Count 353 K/mcL (140-400); Red Blood Count 3.21 M/mcL (4.19-5.50); Red Cell Distribution Width 13.9 % (11.5-14.5); Segmented Neutrophils % 86.7 %
[2017-10-05 04:15] LABS: Calcium 9.3 mg/dL (8.6-10.3); Potassium 4.5 mEq/L (3.5-5.1)
[2017-10-05 04:30] LABS: Thyroid Stimulating Hormone 0.158 mcIU/mL (0.340-5.600)
[2017-10-05 04:40] LABS: Hypochromasia Present (Not Present); Platelet Estimate Normal (Normal)
[2017-10-05] MEDS: Piperacillin/Tazobactam 3.375 GM in 0.9 % Sodium Chloride Mini Bag 100 ML IVPB SCH ×3 (05:03→21:20)
[2017-10-05] MEDS: Insulin LISPRO 300 UNITS/3 ML VIAL SQ SCH ×3 (07:51→17:20)
[2017-10-05 08:34] LABS: Triiodothyronine (T3) Free 2.31 pg/mL (2.50-3.90)
[2017-10-05] MEDS: Aspirin 81 MG TAB.CHEW PO SCH (09:36)
[2017-10-05 09:39] LABS: Hemoglobin A1C 6.2 %
[2017-10-05 11:03] LABS: Hematocrit 29.1 % (37.5-50.1); Mean Platelet Volume 11.1 fL (9.4-12.4)
[2017-10-05 11:04] LABS: Hemoglobin 9.3 g/dL (12.9-16.9); Mean Corpuscular Hemoglobin 27.7 pg (28.0-33.3); Mean Corpuscular Volume 86.6 fL (83.0-100.0); Platelet Count 382 K/mcL (140-400); Red Blood Count 3.36 M/mcL (4.19-5.50)
[2017-10-05 12:49] LABS: Lymphocytes # 1.5 K/mcL (0.6-4.6); Monocytes # 1.2 K/mcL (0.0-1.3); Neutrophils # 26.5 K/mcL (1.6-8.9)
[2017-10-05 12:50] LABS: Platelet Estimate Normal (Normal)
[2017-10-05 13:38] LABS: Mean Platelet Volume 10.7 fL (9.4-12.4)
[2017-10-05 13:40] LABS: Hematocrit 28.9 % (37.5-50.1); Hemoglobin 9.6 g/dL (12.9-16.9); Mean Corpuscular HGB Conc 33.2 g/dL (31.6-35.5); Mean Corpuscular Hemoglobin 28.7 pg (28.0-33.3); Mean Corpuscular Volume 86.3 fL (83.0-100.0); Nucleated Red Blood Cells 0.1 /100 WBC (0); Platelet Count 371 K/mcL (140-400); Red Blood Count 3.35 M/mcL (4.19-5.50); Red Cell Distribution Width 14.2 % (11.5-14.5)
--- NOTE | 2017-10-05 15:16 | Internal Med Progress Note ---
<Rehan Dinh - Last Filed: 10/05/17 18:09> Date of Encounter: 10/05/17 Time of Encounter: 15:14 - Assessment and plan (1) Acute respiratory failure with hypoxia Current Visit: Yes Status: Acute Assessment and plan: History of underlying COPD most likely due to pneumonia with chest x-ray showing bibasilar atelectasis versus pneumonia Plan: - Escalating antibiotics as discussed below continue to monitor patient requiring 3L nasal cannula (2) Sepsis Current Visit: Yes Status: Suspected Assessment and plan: Leukocytosis and tachycardia most likely due to pneumonia Patient White blood cell count worse today 25.5 -> 27.5 Plan: - Day 2 of vancomycin, Levaquin and Zosyn to be renally dosed. - Monitor WBC - TSH checked and mildly low, not impressive Qualifiers: Sepsis type: sepsis due to unspecified organism Qualified Code(s): A41.9 - Sepsis, unspecified organism (3) Anemia Current Visit: Yes Status: Acute Assessment and plan: Iron panel performed and interpreted as consistent with anemia of chronic disease versus iron deficiency. Hemoglobin remained stable today we will continue to monitor. Qualifiers: Anemia type: unspecified type Qualified Code(s): D64.9 - Anemia, unspecified (4) Acute on chronic kidney failure Current Visit: Yes Status: Acute Assessment and plan: Patient's creatinine improved today from 1.70 - >1.58 which is baseline is 1.4- 1.6. Qualifiers: Acute renal failure type: unspecified Chronic kidney disease stage: stage 3 (moderate) Qualified Code(s): N17.9 - Acute kidney failure, unspecified; N18.3 - Chronic kidney disease, stage 3 (moderate); N18.3 - Chronic kidney disease, stage 3 (moderate) (5) History of COPD Current Visit: Yes Status: Acute Assessment and plan: Continue bronchodilators every 4 hours, patient is receiving steroids no longer. Symptoms most likely due to pneumonia. (6) DVT prophylaxis Current Visit: No Status: Acute Assessment and plan: PCDs. - Subjective Interval history: Patient is a 76-year-old male with a past medical history of CHF, COPD, hypertension, schizophrenia, SBO presenting to the hospital for altered mental status and respiratory distress. Currently being treated with broad spectrum antibiotics for pneumonia. Respiratory panel positive for entero/rhino virus. Day 3 of antibiotics, escalated yesterday. Doing well, no complaints and appears to be improving. 10 ROS completed and is negative except as stated in history of present illness - Constitutional Vitals: Temp Pulse Resp BP Pulse Ox 98.5 F 88 18 132/68 93 10/05/17 11:26 10/05/17 11:26 10/05/17 11:27 10/05/17 11:27 10/05/17 11:27 General appearance: Present: cooperative, A&O X 2, pleasant, no acute distress Exam: Patient is sitting up in bed and eating his food went into the room. In no acute distress. - Head Head exam: Present: atraumatic, normal inspection, normocephalic - Eye Eye exam: Present: normal appearance, PERRL - Neck Neck exam general surgery: Present: normal inspection - Respiratory Respiratory exam: Present: rales (bases bilaterally) Additional comments: Currently on 2L NC saturation at 93% - Cardiovascular Cardiovascular exam: Present: RRR, +S1, +S2 - GI/Abdominal GI/Abdominal exam: Present: normal bowel sounds, soft, no peritoneal signs. Absent: tenderness - Extremities Exam Extremities exam: Present: normal capillary refill, normal inspection, warm. Absent: pedal edema, tenderness - Back Exam Back exam: Present: normal inspection - Neurological Exam Neurological exam: Present: alert, oriented X3, no focal deficits - Psychiatric Psychiatric exam: Present: normal affect, normal mood - Skin Skin exam: Present: intact, normal color. Absent: rash Internal Medicine: Result - Labs CBC & Chem 7: 10/05/17 13:16 10/05/17 03:43 Labs: Short CBC 10/05/17 10/05/17 10/05/17 Range/Units 03:43 10:04 13:16 WBC 31.3 H* 29.1 H 27.5 H (4.3-11.1) K/mcL Hgb 8.7 L 9.3 L 9.6 L (12.9-16.9) g/dL Hct 28.0 L 29.1 L 28.9 L (37.5-50.1) % Plt Count 353 382 371 (140-400) K/mcL Neutrophils # 27.1 H 26.5 H (1.6-8.9) K/mcL BMP 10/05/17 03:43 Sodium 143 Potassium 4.5 Chloride 116 H Carbon Dioxide 20 L BUN 54 H Creatinine 1.58 H Glucose 116 H Calcium 9.3 - ABG Interpretation ABG results: ABG ABG pH 7.33 pH Units (7.32-7.45) 10/03/17 00:03 ABG pCO2 40 mmHg (35-45) 10/03/17 00:03 ABG pO2 97 mmHg (85-104) 10/03/17 00:03 ABG O2 Saturation 97 % (95-98) 10/03/17 00:03 PT/INR, D-dimer PT 15.0 Seconds (9.4-12.1) H 10/03/17 00:10 - Impressions Impressions Chest X-Ray 10/05/17 04:28 IMPRESSION: Stable right basilar and improving left basilar airspace disease. Pulmonary edema persists. D/ / Danyel Coe MD / Danyel Coe MD Interpreting Provider: Danyel Coe MD - VTE Documentation of Mechanical Device: Intermittent pneumatic compression device Consult Discharge Plan - Plan Referrals: Kristopher Guerrero MD [Primary Care Provider] - 10/10/17 1:30 pm () <Long Andrea - Last Filed: 10/05/17 18:52> Date of Encounter: 10/05/17 - Constitutional Vitals: Temp Pulse Resp BP Pulse Ox 98.5 F 89 18 134/71 94 10/05/17 16:06 10/05/17 16:06 10/05/17 16:06 10/05/17 16:06 10/05/17 16:06 Internal Medicine: Result - Labs CBC & Chem 7: 10/05/17 13:16 10/05/17 03:43 Labs: Short CBC 10/05/17 10/05/17 10/05/17 Range/Units 03:43 10:04 13:16 WBC 31.3 H* 29.1 H 27.5 H (4.3-11.1) K/mcL Hgb 8.7 L 9.3 L 9.6 L (12.9-16.9) g/dL Hct 28.0 L 29.1 L 28.9 L (37.5-50.1) % Plt Count 353 382 371 (140-400) K/mcL Neutrophils # 27.1 H 26.5 H 24.8 H (1.6-8.9) K/mcL BMP 10/05/17 03:43 Sodium 143 Potassium 4.5 Chloride 116 H Carbon Dioxide 20 L BUN 54 H Creatinine 1.58 H Glucose 116 H Calcium 9.3 - ABG Interpretation ABG results: ABG ABG pH 7.33 pH Units (7.32-7.45) 10/03/17 00:03 ABG pCO2 40 mmHg (35-45) 10/03/17 00:03 ABG pO2 97 mmHg (85-104) 10/03/17 00:03 ABG O2 Saturation 97 % (95-98) 10/03/17 00:03 PT/INR, D-dimer PT 15.0 Seconds (9.4-12.1) H 10/03/17 00:10 - Impressions Impressions Chest X-Ray 10/05/17 04:28 IMPRESSION: Stable right basilar and improving left basilar airspace disease. Pulmonary edema persists. D/ / Danyel Coe MD / Danyel Coe MD Interpreting Provider: Danyel Coe MD - Attending Attestation I examined this patient and my medical decision-making was reviewed with the Resident Physician. I agree with the documented findings, disposition and treatment plan as described except to the extent set forth below.
[2017-10-05 17:13] LABS: Lymphocytes # 1.7 K/mcL (0.6-4.6); Monocytes # 1.1 K/mcL (0.0-1.3); Neutrophils # 24.8 K/mcL (1.6-8.9); Platelet Estimate Normal (Normal)
[2017-10-05] MEDS: OLANZapine 10 MG TAB.RAPDIS PO SCH (21:20)
[2017-10-06] MEDS: Ipratropium/Albuterol Neb 3 ML IH SCH ×6 (00:05→20:29)
[2017-10-06] MEDS ORDERED: Haloperidol Lactate 5 MG/ML VIAL IM ONE (02:04)
[2017-10-06 03:55] LABS: Basophils # 0.1 K/mcL (0.0-0.2); Basophils % 0.3 %; Eosinophils % 0.1 %; Hematocrit 30.2 % (37.5-50.1); Hemoglobin 9.7 g/dL (12.9-16.9); Immature Granulocytes % 3.2 % (0-4); Lymphocytes # 2.3 K/mcL (0.6-4.6); Lymphocytes % 9.7 %; Mean Corpuscular HGB Conc 32.1 g/dL (31.6-35.5); Mean Corpuscular Hemoglobin 27.3 pg (28.0-33.3); Mean Corpuscular Volume 85.1 fL (83.0-100.0); Monocytes # 1.6 K/mcL (0.0-1.3); Monocytes % 6.9 %; Platelet Count 400 K/mcL (140-400); Red Blood Count 3.55 M/mcL (4.19-5.50); Red Cell Distribution Width 13.9 % (11.5-14.5); Segmented Neutrophils % 79.8 %
[2017-10-06 04:00] LABS: Neutrophils # 18.9 K/mcL (1.6-8.9)
[2017-10-06 04:07] LABS: Calcium 9.1 mg/dL (8.6-10.3); Potassium 4.3 mEq/L (3.5-5.1)
[2017-10-06 04:26] LABS: Reactive Lymphocytes Present (Not Present)
[2017-10-06 04:27] LABS: Platelet Estimate Normal (Normal); Smudge Cells Present (Not Present); Toxic Granulation Present (Not Present)
[2017-10-06] MEDS: Piperacillin/Tazobactam 3.375 GM in 0.9 % Sodium Chloride Mini Bag 100 ML IVPB SCH ×3 (05:15→20:40)
--- NOTE | 2017-10-06 07:25 | Internal Med Progress Note ---
<Rehan Dinh - Last Filed: 10/06/17 17:27> Date of Encounter: 10/06/17 Time of Encounter: 14:34 - Assessment and plan (1) Acute respiratory failure with hypoxia Current Visit: Yes Status: Acute Assessment and plan: History of underlying COPD most likely due to pneumonia with chest x-ray showing bibasilar atelectasis versus pneumonia Plan: - Day#2 of increased coverage antibiotics. Levaquin, Zosyn, and vancomycin - Patient is satting on room air this morning. Continue to wean oxygen. (2) Sepsis Current Visit: Yes Status: Suspected Assessment and plan: Patient White blood cell count trending down. Improving clinically Plan: - Day 3 of vancomycin, Levaquin and Zosyn to be renally dosed. - Monitor WBC, trending down - TSH checked and mildly low, not impressive. Most likely due to illness Qualifiers: Sepsis type: sepsis due to unspecified organism Qualified Code(s): A41.9 - Sepsis, unspecified organism (3) Anemia Current Visit: Yes Status: Acute Assessment and plan: Iron panel performed and interpreted as consistent with anemia of chronic disease versus iron deficiency. Hemoglobin remained stable today we will continue to monitor. Qualifiers: Anemia type: unspecified type Qualified Code(s): D64.9 - Anemia, unspecified (4) Acute on chronic kidney failure Current Visit: Yes Status: Acute Assessment and plan: Patient is at baseline. Qualifiers: Acute renal failure type: unspecified Chronic kidney disease stage: stage 3 (moderate) Qualified Code(s): N17.9 - Acute kidney failure, unspecified; N18.3 - Chronic kidney disease, stage 3 (moderate); N18.3 - Chronic kidney disease, stage 3 (moderate) (5) History of COPD Current Visit: Yes Status: Acute Assessment and plan: Continue bronchodilators every 4 hours, patient is receiving steroids no longer. Symptoms most likely due to pneumonia. (6) DVT prophylaxis Current Visit: No Status: Acute Assessment and plan: PCDs. Up to chair TID. - Subjective Interval history: Patient is a 76-year-old male with a past medical history of CHF, COPD, hypertension, schizophrenia, and small bowel obstruction presenting to the hospital for altered mental status and respiratory distress. The patient is currently undergoing treatment for broad-spectrum antibiotics. Respiratory panel is positive that was positive for entero/rhinovirus. The patient is on day 4 of antibiotics which were escalated 2 days ago. Overnight the patient became agitated and did require Haldol. This morning the patient is doing well he is sitting up in his chair and eating breakfast. No acute distress at this time. 10 ROS completed and is negative except as stated in history of present illness - Constitutional Vitals: Temp Pulse Resp BP Pulse Ox 98.4 F 85 18 121/77 92 10/06/17 07:12 10/06/17 07:12 10/06/17 07:12 10/06/17 07:12 10/06/17 07:12 General appearance: Present: cooperative, A&O X 2, pleasant, no acute distress Exam: Patient is sitting up in bed and eating breakfast. Patient appears to be doing well. No acute distress at this time. - Head Head exam: Present: atraumatic, normal inspection - Eye Eye exam: Present: normal appearance, PERRL - Neck Neck exam general surgery: Present: normal inspection - Respiratory Respiratory exam: Present: rales (Mildly in bilateral bases) - Cardiovascular Cardiovascular exam: Present: RRR, +S1, +S2 - GI/Abdominal GI/Abdominal exam: Present: normal bowel sounds, soft, no peritoneal signs. Absent: tenderness - Extremities Exam Extremities exam: Present: normal inspection, warm - Back Exam Back exam: Present: normal inspection - Neurological Exam Neurological exam: Present: alert, oriented X3, no focal deficits - Psychiatric Psychiatric exam: Present: normal affect, normal mood - Skin Skin exam: Present: intact, normal color, warm. Absent: rash Internal Medicine: Result - Labs CBC & Chem 7: 10/06/17 03:15 10/06/17 03:15 Labs: Short CBC 10/05/17 10/05/17 10/06/17 Range/Units 10:04 13:16 03:15 WBC 29.1 H 27.5 H 23.7 H (4.3-11.1) K/mcL Hgb 9.3 L 9.6 L 9.7 L (12.9-16.9) g/dL Hct 29.1 L 28.9 L 30.2 L (37.5-50.1) % Plt Count 382 371 400 (140-400) K/mcL Neutrophils # 26.5 H 24.8 H 18.9 H (1.6-8.9) K/mcL BMP 10/06/17 03:15 Sodium 140 Potassium 4.3 Chloride 111 H Carbon Dioxide 22 L BUN 37 H Creatinine 1.52 H Glucose 105 Calcium 9.1 - ABG Interpretation ABG results: ABG ABG pH 7.33 pH Units (7.32-7.45) 10/03/17 00:03 ABG pCO2 40 mmHg (35-45) 10/03/17 00:03 ABG pO2 97 mmHg (85-104) 10/03/17 00:03 ABG O2 Saturation 97 % (95-98) 10/03/17 00:03 PT/INR, D-dimer PT 15.0 Seconds (9.4-12.1) H 10/03/17 00:10 - VTE Documentation of Mechanical Device: Intermittent pneumatic compression device Consult Discharge Plan - Plan Referrals: Kristopher Guerrero MD [Primary Care Provider] - 10/10/17 1:30 pm () <Long Andrea - Last Filed: 10/06/17 17:41> Date of Encounter: 10/06/17 - Constitutional Vitals: Temp Pulse Resp BP Pulse Ox 97.9 F 85 18 120/78 92 10/06/17 16:19 10/06/17 16:19 10/06/17 16:19 10/06/17 16:19 10/06/17 16:19 Internal Medicine: Result - Labs CBC & Chem 7: 10/06/17 03:15 10/06/17 03:15 Labs: Short CBC 10/06/17 Range/Units 03:15 WBC 23.7 H (4.3-11.1) K/mcL Hgb 9.7 L (12.9-16.9) g/dL Hct 30.2 L (37.5-50.1) % Plt Count 400 (140-400) K/mcL Neutrophils # 18.9 H (1.6-8.9) K/mcL [facility] [place]/06[place]17 03:15 Sodium 140 Potassium 4.3 Chloride 111 H Carbon Dioxide 22 L BUN 37 H Creatinine 1.52 H Glucose 105 Calcium 9.1 - ABG Interpretation ABG results: ABG ABG pH 7.33 pH Units (7.32-7.45) 10/03/17 00:03 ABG pCO2 40 mmHg (35-45) 10/03/17 00:03 ABG pO2 97 mmHg (85-104) 10/03/17 00:03 ABG O2 Saturation 97 % (95-98) 10/03/17 00:03 PT/INR, D-dimer PT 15.0 Seconds (9.4-12.1) H 10/03/17 00:10 - Attending Attestation I examined this patient and my medical decision-making was reviewed with the Resident Physician. I agree with the documented findings, disposition and treatment plan as described except to the extent set forth below.
[2017-10-06] MEDS: Insulin LISPRO 300 UNITS/3 ML VIAL SQ SCH ×3 (09:08→16:29)
[2017-10-06] MEDS: Aspirin 81 MG TAB.CHEW PO SCH (09:12)
[2017-10-06] MEDS: Levofloxacin 750 MG/150 ML 750 MG/150 ML BAG IVPB SCH (16:36)
[2017-10-06] MEDS: OLANZapine 10 MG TAB.RAPDIS PO SCH (20:40)
[2017-10-07] MEDS: Ipratropium/Albuterol Neb 3 ML IH SCH ×6 (04:03→20:33)
[2017-10-07] MEDS: Piperacillin/Tazobactam 3.375 GM in 0.9 % Sodium Chloride Mini Bag 100 ML IVPB SCH ×3 (05:19→20:38)
[2017-10-07 06:55] LABS: Basophils # 0.1 K/mcL (0.0-0.2); Basophils % 0.5 %; Eosinophils # 0.2 K/mcL (0.0-0.6); Eosinophils % 0.9 %; Hematocrit 29.7 % (37.5-50.1); Hemoglobin 9.4 g/dL (12.9-16.9); Immature Granulocytes % 3.2 % (0-4); Lymphocytes # 2.2 K/mcL (0.6-4.6); Lymphocytes % 10.8 %; Mean Corpuscular HGB Conc 31.6 g/dL (31.6-35.5); Mean Corpuscular Volume 85.3 fL (83.0-100.0); Mean Platelet Volume 10.7 fL (9.4-12.4); Monocytes # 1.2 K/mcL (0.0-1.3); Monocytes % 5.9 %; Neutrophils # 16.2 K/mcL (1.6-8.9); Platelet Count 373 K/mcL (140-400); Red Blood Count 3.48 M/mcL (4.19-5.50); Red Cell Distribution Width 13.9 % (11.5-14.5); Segmented Neutrophils % 78.7 %
[2017-10-07 07:13] LABS: BUN/Creatinine Ratio 21 (6-26); Blood Urea Nitrogen 28 mg/dL (8-23); Calcium 8.7 mg/dL (8.6-10.3); Carbon Dioxide 24 mEq/L (23-29); Chloride 110 mEq/L (98-107); Glucose 105 mg/dL (70-105); Osmolality,Calculated 294 (280-300); Sodium 139 mEq/L (136-145); eGFR For African Americans > 60 (> 60); eGFR For Non-African Americans 51 (> 60)
--- NOTE | 2017-10-07 07:25 | Internal Med Progress Note ---
<Rehan Dinh - Last Filed: 10/07/17 14:10> Date of Encounter: 10/07/17 Time of Encounter: 14:10 - Assessment and plan (1) Acute respiratory failure with hypoxia Current Visit: Yes Status: Acute Assessment and plan: History of underlying COPD most likely due to pneumonia with chest x-ray showing bibasilar atelectasis versus pneumonia Plan: - Day#3 of increased coverage antibiotics. Levaquin, Zosyn, and vancomycin - Continue to wean patient off oxygen - Anticipate this patient will likely be a candidate for discharge tomorrow. (2) Anemia Current Visit: Yes Status: Acute Assessment and plan: Iron panel performed and interpreted as consistent with anemia of chronic disease versus iron deficiency. Hemoglobin remained stable today we will continue to monitor. Qualifiers: Anemia type: unspecified type Qualified Code(s): D64.9 - Anemia, unspecified (3) Acute on chronic kidney failure Current Visit: Yes Status: Acute Assessment and plan: Patient is at baseline. Qualifiers: Acute renal failure type: unspecified Chronic kidney disease stage: stage 3 (moderate) Qualified Code(s): N17.9 - Acute kidney failure, unspecified; N18.3 - Chronic kidney disease, stage 3 (moderate); N18.3 - Chronic kidney disease, stage 3 (moderate) (4) History of COPD Current Visit: Yes Status: Acute Assessment and plan: Continue bronchodilators every 4 hours, patient is receiving steroids no longer. Symptoms most likely due to pneumonia. (5) DVT prophylaxis Current Visit: No Status: Acute Assessment and plan: PCDs. Up to chair TID. - Subjective Interval history: Patient is a 76-year-old male with a past medical history of CHF, COPD, hypertension, schizophrenia, and small bowel obstruction presenting to the hospital for altered mental status and respiratory distress. The patient is currently undergoing treatment for broad-spectrum antibiotics. Respiratory panel is positive that was positive for entero/rhinovirus. The patient is on day 3 of antibiotics. Patient is doing well today he was eating breakfast and oxygen saturation was 90% on room air. I suspect that this patient will be discharged tomorrow due to his improving condition. 10 ROS completed and is negative except as stated in history of present illness - Constitutional Vitals: Temp Pulse Resp BP Pulse Ox 97.9 F 71 18 120/68 92 10/07/17 07:15 10/07/17 07:15 10/07/17 07:15 10/07/17 07:15 10/07/17 07:15 General appearance: Present: cooperative, pleasant, no acute distress Exam: Patient is sitting up and eating breakfast this is currently oxygen saturation is 90% on room air. CONSTITUTIONAL: Alert and oriented X3, well-nourished, well appearing, in no apparent distress HEAD: Normocephalic; atraumatic. EYES: PERRL, no scleral icterus. 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 Internal Medicine: Result - Labs CBC & Chem 7: 10/07/17 06:25 10/07/17 06:25 Labs: BMP 10/07/17 06:25 Sodium 139 Potassium 4.0 Chloride 110 H Carbon Dioxide 24 BUN 28 H Creatinine 1.36 H Glucose 105 Calcium 8.7 - ABG Interpretation ABG results: ABG ABG pH 7.33 pH Units (7.32-7.45) 10/03/17 00:03 ABG pCO2 40 mmHg (35-45) 10/03/17 00:03 ABG pO2 97 mmHg (85-104) 10/03/17 00:03 ABG O2 Saturation 97 % (95-98) 10/03/17 00:03 PT/INR, D-dimer PT 15.0 Seconds (9.4-12.1) H 10/03/17 00:10 - VTE Documentation of Mechanical Device: Intermittent pneumatic compression device Consult Discharge Plan - Plan Referrals: Kristopher Guerrero MD [Primary Care Provider] - 10/10/17 1:30 pm () <Long Andrea - Last Filed: 10/07/17 18:38> Date of Encounter: 10/07/17 - Constitutional Vitals: Temp Pulse Resp BP Pulse Ox 97.3 F L 75 20 111/65 94 10/07/17 15:55 10/07/17 15:55 10/07/17 16:22 10/07/17 15:55 10/07/17 16:22 Internal Medicine: Result - Labs CBC & Chem 7: 10/07/17 06:25 10/07/17 06:25 Labs: Short CBC 10/07/17 Range/Units 06:25 WBC 20.6 H (4.3-11.1) K/mcL Hgb 9.4 L (12.9-16.9) g/dL Hct 29.7 L (37.5-50.1) % Plt Count 373 (140-400) K/mcL Neutrophils # 16.2 H (1.6-8.9) K/mcL BMP 10/07/17 06:25 Sodium 139 Potassium 4.0 Chloride 110 H Carbon Dioxide 24 BUN 28 H Creatinine 1.36 H Glucose 105 Calcium 8.7 - ABG Interpretation ABG results: ABG ABG pH 7.33 pH Units (7.32-7.45) 10/03/17 00:03 ABG pCO2 40 mmHg (35-45) 10/03/17 00:03 ABG pO2 97 mmHg (85-104) 10/03/17 00:03 ABG O2 Saturation 97 % (95-98) 10/03/17 00:03 PT/INR, D-dimer PT 15.0 Seconds (9.4-12.1) H 10/03/17 00:10 - Attending Attestation I examined this patient and my medical decision-making was reviewed with the Resident Physician. I agree with the documented findings, disposition and treatment plan as described except to the extent set forth below.
[2017-10-07] MEDS: Insulin LISPRO 300 UNITS/3 ML VIAL SQ SCH ×3 (07:49→16:29)
[2017-10-07] MEDS: Aspirin 81 MG TAB.CHEW PO SCH (08:06)
[2017-10-07] MEDS: OLANZapine 10 MG TAB.RAPDIS PO SCH (20:39)
[2017-10-08] MEDS: Ipratropium/Albuterol Neb 3 ML IH SCH ×6 (00:21→20:52)
[2017-10-08] MEDS: Piperacillin/Tazobactam 3.375 GM in 0.9 % Sodium Chloride Mini Bag 100 ML IVPB SCH ×3 (05:25→21:29)
[2017-10-08 06:49] LABS: Basophils # 0.1 K/mcL (0.0-0.2); Basophils % 0.3 %; Eosinophils # 0.4 K/mcL (0.0-0.6); Eosinophils % 2.3 %; Hematocrit 28.9 % (37.5-50.1); Hemoglobin 9.1 g/dL (12.9-16.9); Immature Granulocytes % 4.5 % (0-4); Lymphocytes # 2.3 K/mcL (0.6-4.6); Lymphocytes % 13.5 %; Mean Corpuscular HGB Conc 31.5 g/dL (31.6-35.5); Mean Corpuscular Hemoglobin 27.7 pg (28.0-33.3); Mean Corpuscular Volume 87.8 fL (83.0-100.0); Mean Platelet Volume 10.4 fL (9.4-12.4); Monocytes # 1.1 K/mcL (0.0-1.3); Monocytes % 6.5 %; Neutrophils # 12.4 K/mcL (1.6-8.9); Platelet Count 368 K/mcL (140-400); Red Blood Count 3.29 M/mcL (4.19-5.50); Segmented Neutrophils % 72.9 %
[2017-10-08] MEDS: Insulin LISPRO 300 UNITS/3 ML VIAL SQ SCH ×3 (07:56→17:01)
[2017-10-08] MEDS: Aspirin 81 MG TAB.CHEW PO SCH (07:57)
[2017-10-08 08:31] LABS: Platelet Estimate Normal (Normal); Reactive Lymphocytes Present (Not Present)
--- NOTE | 2017-10-08 11:03 | Internal Med Progress Note ---
<Bob Ruiz - Last Filed: 10/08/17 11:20> Date of Encounter: 10/08/17 Time of Encounter: 11:01 - Assessment and plan (1) Acute respiratory failure with hypoxia Current Visit: Yes Status: Acute Assessment and plan: Secondary to viral pneumonia and suspected bacterial pneumonia. Respiratory infectious panel positive for rhinovirus. Leukocytosis improving now 17. Oxygen requirement decreased from 4 L to 2 L. Patient does not use oxygen at home. Plan: Continue scheduled DuoNeb's, continue to wean down oxygen. (2) Pneumonia Current Visit: Yes Status: Acute Assessment and plan: Chest x-ray shows evidence of right lower lobe and left lower lobe pneumonia. Negative blood cultures. We will discontinue vancomycin. Continue Zosyn and Levaquin. Will need total 7 days of antibiotics. If patient is able to wean down on oxygen we will discharge home tomorrow. If not we will do a 6 minute O2 qualification test before discharge. Repeat CBC in a.m. Qualifiers: Pneumonia type: due to unspecified organism Laterality: bilateral Lung location: lower lobe of lung Qualified Code(s): J18.1 - Lobar pneumonia, unspecified organism (3) Acute on chronic kidney failure Current Visit: Yes Status: Resolved Assessment and plan: Resolved. Creatinine clearance 46. Dose antibodies accordingly. Qualifiers: Acute renal failure type: unspecified Chronic kidney disease stage: stage 3 (moderate) Qualified Code(s): N17.9 - Acute kidney failure, unspecified; N18.3 - Chronic kidney disease, stage 3 (moderate); N18.3 - Chronic kidney disease, stage 3 (moderate) (4) Anemia Current Visit: Yes Status: Acute Assessment and plan: Stable. Repeat CBC in the morning. Qualifiers: Anemia type: unspecified type Qualified Code(s): D64.9 - Anemia, unspecified (5) DVT prophylaxis Current Visit: Yes Status: Acute Assessment and plan: PCDs. Up to chair TID. - Subjective Interval history: Patient in bed sitting up injuring his coffee. Reports shortness of breath is improved. Continues to have productive cough. Denies chest pain. Reports he is not on oxygen at home. Requiring 2 L O2 via nasal cannula. Patient is able to ambulate with assistance but desaturates. He is tolerating his diet. Has no difficulties with urination. Has had consistent bowel movements. He denies abdominal pain, nausea, vomiting, diarrhea. - Constitutional Vitals: Temp Pulse Resp BP Pulse Ox 98.5 F 80 22 113/69 92 10/08/17 07:21 10/08/17 07:49 10/08/17 07:49 10/08/17 07:49 10/08/17 07:49 General appearance: Present: cooperative, pleasant, no acute distress - Other Additional findings: General: without distress HEENT: Head atraumatic, normocephalic, EOMI, PERRL, neck nontender to palpation , absent lymphadenopathy, Moist Mucous Membranes, Heart: Regular rate and rhythm with no murmur Lungs: Bilateral basilar rhonchi, clear to auscultation upper lobes. Abdomen: Soft nontender, nondistended positive bowel sounds Skin: warm and dry Extremities: Absent pedal edema, Neuro: Alert oriented 3 Vascular: Pedal and radial pulses 2 out of 4 Internal Medicine: Result - Labs CBC & Chem 7: 10/08/17 06:32 10/07/17 06:25 Labs: Short CBC 10/08/17 Range/Units 06:32 WBC 17.0 H (4.3-11.1) K/mcL Hgb 9.1 L (12.9-16.9) g/dL Hct 28.9 L (37.5-50.1) % Plt Count 368 (140-400) K/mcL Neutrophils # 12.4 H (1.6-8.9) K/mcL - ABG Interpretation ABG results: ABG ABG pH 7.33 pH Units (7.32-7.45) 10/03/17 00:03 ABG pCO2 40 mmHg (35-45) 10/03/17 00:03 ABG pO2 97 mmHg (85-104) 10/03/17 00:03 ABG O2 Saturation 97 % (95-98) 10/03/17 00:03 PT/INR, D-dimer PT 15.0 Seconds (9.4-12.1) H 10/03/17 00:10 - VTE Documentation of Mechanical Device: Intermittent pneumatic compression device Consult Discharge Plan - Plan Referrals: Kristopher Guerrero MD [Primary Care Provider] - 10/17/17 1:20 pm () <Erasto Cardenas H - Last Filed: 10/08/17 11:27> Date of Encounter: 10/08/17 - Constitutional Vitals: Temp Pulse Resp BP Pulse Ox 98.5 F 80 22 113/69 92 10/08/17 07:21 10/08/17 07:49 10/08/17 11:06 10/08/17 07:49 10/08/17 11:06 Internal Medicine: Result - Labs CBC & Chem 7: 10/08/17 06:32 10/07/17 06:25 Labs: Short CBC 10/08/17 Range/Units 06:32 WBC 17.0 H (4.3-11.1) K/mcL Hgb 9.1 L (12.9-16.9) g/dL Hct 28.9 L (37.5-50.1) % Plt Count 368 (140-400) K/mcL Neutrophils # 12.4 H (1.6-8.9) K/mcL - ABG Interpretation ABG results: ABG ABG pH 7.33 pH Units (7.32-7.45) 10/03/17 00:03 ABG pCO2 40 mmHg (35-45) 10/03/17 00:03 ABG pO2 97 mmHg (85-104) 10/03/17 00:03 ABG O2 Saturation 97 % (95-98) 10/03/17 00:03 PT/INR, D-dimer PT 15.0 Seconds (9.4-12.1) H 10/03/17 00:10 - Attending Attestation Acute hypoxic respiratory failure secondary to community-acquired pneumonia, also respiratory infection with entero-/rhinovirus De-escalate antibiotic therapy, discontinue vancomycin Continue Zosyn and Levaquin day #5 Severe leukocytosis likely secondary to infection I examined this patient and my medical decision-making was reviewed with the Resident Physician. I agree with the documented findings, disposition and treatment plan as described except to the extent set forth below.
[2017-10-08] MEDS ORDERED: Aminoglycoside Consult 1 EACH MC ONE (15:39)
[2017-10-08] MEDS: Levofloxacin 750 MG/150 ML 750 MG/150 ML BAG IVPB SCH (16:36)
[2017-10-08] MEDS: OLANZapine 10 MG TAB.RAPDIS PO SCH (21:29)
[2017-10-09] MEDS: Ipratropium/Albuterol Neb 3 ML IH SCH ×5 (00:04→15:49)
[2017-10-09 05:10] LABS: Basophils % 0.3 %; Eosinophils # 0.5 K/mcL (0.0-0.6); Eosinophils % 3.4 %; Hematocrit 28.3 % (37.5-50.1); Hemoglobin 8.8 g/dL (12.9-16.9); Lymphocytes # 2.7 K/mcL (0.6-4.6); Lymphocytes % 19.7 %; Mean Corpuscular HGB Conc 31.1 g/dL (31.6-35.5); Mean Corpuscular Hemoglobin 27.4 pg (28.0-33.3); Mean Corpuscular Volume 88.2 fL (83.0-100.0); Mean Platelet Volume 10.6 fL (9.4-12.4); Monocytes # 1.1 K/mcL (0.0-1.3); Monocytes % 8.1 %; Neutrophils # 8.6 K/mcL (1.6-8.9); Platelet Count 354 K/mcL (140-400); Red Blood Count 3.21 M/mcL (4.19-5.50); Red Cell Distribution Width 13.9 % (11.5-14.5); Segmented Neutrophils % 63.5 %
[2017-10-09 05:23] LABS: Calcium 8.9 mg/dL (8.6-10.3); Potassium 3.9 mEq/L (3.5-5.1)
[2017-10-09] MEDS: Piperacillin/Tazobactam 3.375 GM in 0.9 % Sodium Chloride Mini Bag 100 ML IVPB SCH (05:59)
[2017-10-09] MEDS: Insulin LISPRO 300 UNITS/3 ML VIAL SQ SCH ×2 (08:20→11:29)
[2017-10-09] MEDS: Aspirin 81 MG TAB.CHEW PO SCH (08:49)
[2017-10-09 11:22] VITALS: BP 117/62
--- NOTE | 2017-10-09 11:35 | Discharge Summary ---
<Bob Ruiz - Last Filed: 10/09/17 13:19> - NOTES TO OUTPATIENT PROVIDER Notes to Outpatient Provider: Patientadmitted for PNA. Recived five days of IV antibiotics. Sputum culture blood culture negative. + for rhinovirusWill be discharged with 2L home O2, five addtional days of levaquin, mucinex, and duonebs nebulizer. Orders not resulted at time of discharge: Pending orders 10/05/17 04:39 Culture,Blood [BC] Stat Date of Encounter: 10/09/17 Time of Encounter: 11:30 - Discharge Diagnosis (1) Acute respiratory failure with hypoxia Priority: Primary Status: Acute (2) Pneumonia Priority: Secondary Status: Acute Qualifiers: Pneumonia type: due to unspecified organism Laterality: bilateral Lung location: lower lobe of lung Qualified Code(s): J18.1 - Lobar pneumonia, unspecified organism (3) Acute on chronic kidney failure Priority: Secondary Status: Resolved Qualifiers: Acute renal failure type: unspecified Chronic kidney disease stage: stage 3 (moderate) Qualified Code(s): N17.9 - Acute kidney failure, unspecified; N18.3 - Chronic kidney disease, stage 3 (moderate); N18.3 - Chronic kidney disease, stage 3 (moderate) (4) Anemia Priority: Secondary Status: Acute Qualifiers: Anemia type: unspecified type Qualified Code(s): D64.9 - Anemia, unspecified (5) DVT prophylaxis Priority: Secondary Status: Acute (6) Non-ST elevation [place] (NSTEMI) Priority: Secondary Status: Ruled-out Hospital course: Mr. Johnson is a 76 year old male presented with chief complaint of shortness of breath with altered mental status. Patient was found hypoxic on room air satting 75-80%. In the ER he was given nebulizer treatments and started on supplemental oxygen. Chest x-ray showed evidence of bilateral pneumonia and patient was started on IV antibiotics. Blood culture, sputum cultures were sent. Patient also had significant leukocytosis with a lactic acidosis.He was treated with IV fluids as per sepsis protocol. Patient had an elevated troponin of 0.79 and started on IV heparin. Cardiology was consulted. Cardiology evaluated patient and repeated echocardiogram which showed a left ventricular ejection fraction 55%. Cardiology concluded patient's elevated troponin secondary to demand ischemia and no further treatment necessary. He was continued on his home aspirin and atorvastatin. Patient also had acute on chronic kidney disease which was treated with IV fluids and improved to baseline. Patient was evaluated for anemia and was found to have iron deficiency anemia versus anemia of chronic disease. Patient's hemoglobin 60 throughout his stay. Over the course of stay patient's respiratory status improved with IV antibiotics, and nebulizer treatments. His leukocytosis trended downwards. Urinalysis was negative for infection. Respiratory infection panel positive for entero/rhinovirus. Patient received 5 days of IV antibiotics and then was transitioned to by mouth Levaquin. He qualified for 2 L oxygen via nasal cannula. He was able to ambulate independently today. He continues to have cough and sputum production however they have considerably improved since admission. Patient will be discharged on by mouth Levaquin 750 mg every 48 hours 2 pills, Mucinex, DuoNeb nebs and oxygen supplementation. He is able to tolerated diet. Patient will be discharged back to assisted. Discharge discussed with: patient - Time Spent with Patient Total time spent providing and/or coordinating discharge services: - Discharge Medications Prescriptions: Ipratropium/Albuterol Neb [Duoneb] 3 ml IH [id number] PRN 30 Days #30 inhsol PRN Reason: Wheezing GuaiFENesin ER [Mucinex] 600 mg PO BID #10 tbbp.12hr Levofloxacin [Levaquin] 750 mg PO Q48H #2 tablet Home Medications: Aspirin [Lo-Dose Aspirin EC] 81 mg PO QAM 02/19/17 [History] Atorvastatin [Lipitor] 10 mg PO HS 02/19/17 [History] Calcium Carbonate/Vitamin D3 [Calcium 500-Vit D3 200 Tablet] 0.5 tab PO BID [History] Citalopram [CeleXA] 20 mg PO DAILY 02/19/17 [History] Docusate Sodium [Dok] 100 mg PO BID 02/19/17 [History] Levothyroxine Sodium [Synthroid] 200 mcg PO DAILY 02/19/17 [History] OLANZapine [Zyprexa] 20 mg PO HS 02/19/17 [History] Amlodipine Besylate/Benazepril [Lotrel 5-20 mg Capsule] 1 cap PO DAILY 10/03/17 [History] GuaiFENesin ER [Mucinex] 600 mg PO BID #10 tbbp.12hr 10/09/17 [Rx] Ipratropium/Albuterol Neb [Duoneb] 3 ml IH [id number] PRN 30 Days #30 inhsol [Rx] Levofloxacin [Levaquin] 750 mg PO Q48H #2 tablet 10/09/17 [Rx] Allergies/Adverse Reactions: 3 Allergy/AdvReac Type Severity Reaction Status Date / Time No Known Allergies Allergy Verified 10/03/17 07:17 Date of admission: 10/03/17 04:47 Primary care physician: Kristopher Guerrero MD Consults: 10/03/17 08:39 Consult to Cardiology [CONS] Routine Comment: Consulting Provider: Cardiology Justine Reason for Consult: elevated trop, concern for NSTEMI Call Completed: Yes Discharging clinician: Bob Ruiz Anticipated date of discharge: 10/09/17 - Constitutional Vitals: Temp Pulse Resp BP Pulse Ox 97.8 F 76 17 117/62 90 10/09/17 11:18 10/09/17 11:18 10/09/17 11:18 10/09/17 11:18 10/09/17 11:18 General appearance: Present: cooperative, pleasant, no acute distress - Other Additional findings: General: plesant without distress HEENT: Head atraumatic, normocephalic, EOMI, PERRL, neck nontender to palpation , absent lymphadenopathy, Moist Mucous Membranes, Heart: Regular rate and rhythm with no murmur Lungs: bibasilar crackles improved from yesterday Abdomen: Soft nontender, nondistended positive bowel sounds Skin: warm and dry Extremities: Absent pedal edema, Neuro: alert and oriented x3 Vascular: Pedal and radial pulses 2 out of 4 - Patient Status Disposition: Home, Self-Care Condition: Good Functional capacity at discharge: independent ambulation Overall status at discharge: patient is progressing back to baseline - Discharge Instructions Instructions: Guaifenesin (By mouth), Levofloxacin (By mouth), Ipratropium/ Albuterol (By breathing), Using Oxygen at Home (DC), Pneumonia (DC) Follow Up With: Kristopher Guerrero MD [Primary Care Provider] - 10/17/17 1:20 pm () Forms: ED Satisfaction Letter - Diet and Activity Activity: increase activity as tolerated, wear oxygen at all times Diet: low fat, low cholesterol, low salt diet - VTE Documentation of Mechanical Device: Intermittent pneumatic compression device <Erasto Cardenas - Last Filed: 10/09/17 16:28> Orders not resulted at time of discharge: Pending orders 10/05/17 04:39 Culture,Blood [BC] Stat Date of Encounter: 10/09/17 Hospital course: Mr. Johnson is a 76 year old male - Time Spent with Patient Total time spent providing and/or coordinating discharge services: Date of admission: 10/03/17 04:47 Primary care physician: Kristopher Guerrero MD Consults: 10/03/17 08:39 Consult to Cardiology [CONS] Routine Comment: Consulting Provider: Cardiology Justine Reason for Consult: elevated trop, concern for NSTEMI Call Completed: Yes - Constitutional Vitals: Temp Pulse Resp BP Pulse Ox 97.8 F 76 17 117/62 90 10/09/17 11:18 10/09/17 11:18 10/09/17 11:18 10/09/17 11:18 10/09/17 11:18 - Attending Attestation Acute hypoxic respiratory failure secondary to community-acquired pneumonia, also respiratory infection with entero-/rhinovirus O2 at home Continue Levaquin Severe leukocytosis likely secondary to infection time spent on this discharge: 40 min I examined this patient and my medical decision-making was reviewed with the Resident Physician. I agree with the documented findings, disposition and treatment plan as described except to the extent set forth below.
== END 2017-10-09 15:40 | disposition home or self-care (01) | DRG 189 ==
LOC: 2NNU 23:38 → EMEROO 23:38 → 2NNU 10-03 02:41
PROVIDERS: ADMIT Internal Medicine; ATTEND Internal Medicine

== ENCOUNTER 2018-12-26 10:16 | Inpatient (IN) ==
[2018-12-26] MEDS ORDERED: methylPREDNISolone 125 MG/2 ML VIAL IVP ONE (10:24)
[2018-12-26] MEDS ORDERED: Ipratropium/Albuterol Neb 3 ML IH ONE (10:24)
--- NOTE | 2018-12-26 10:27 | Emergency Department Note ---
Disposition Clinical Impression: Near syncope, Dizziness on standing, Bradycardia Disposition: Admitted As Inpatient Condition: Good Time of Disposition: 14:16 SOB HPI - General Stated Complaint: dizziness/bradycardia Time Seen by Provider: 12/26/18 10:18 Source: patient, EMS Mode of arrival: EMS Limitations: other Nursing Notes Reviewed: Yes Vital Signs Reviewed: Yes - History of Present Illness 78-year-old male past medical history of hypothyroidism, hypertension, hyperlipidemia, chronic kidney disease, COPD current one pack-a-day smoker presenting for 2-3 day history of dizziness/lightheadedness, difficulties with a mbulation. Patient states that these symptoms have been occurring with movement and dissipate with rest. Patient denies any other current symptoms at this time. Patient noted to be bradycardic via EMS down into the 30s. Upon presentation to the ED patient heart rate in the 50s, he is otherwise hemodynamically stable. He is alert and oriented but appears to be pleasantly confused-this may be the patient's baseline as he has history of schizophrenia. Onset (ago): day(s) Known history of: COPD, asthma Associated symptoms: Reports: denies other symptoms - Related Data Home Medications Medication Instructions Recorded Confirmed Aspirin [Lo-Dose Aspirin EC] 81 mg PO QAM 02/19/17 12/26/18 Atorvastatin [Lipitor] 10 mg PO HS 02/19/17 12/26/18 Calcium Carbonate/Vitamin D3 0.5 tab PO BID 02/19/17 12/26/18 [Calcium 500-Vit D3 200 Tablet] Docusate Sodium [Dok] 100 mg PO BID PRN 02/19/17 12/26/18 OLANZapine [Zyprexa] 20 mg PO HS 02/19/17 12/26/18 Amlodipine Besylate/Benazepril 1 cap PO DAILY 10/03/17 12/26/18 [Lotrel 5-20 mg Capsule] Diclofenac Sodium 1 appl TP QID PRN MDD 4 12/26/18 12/26/18 APPLICATIONS Previous Rx's Medication Instructions Recorded Albuterol Sulfate [Albuterol 2 puff IH Q6HR PRN #1 hfa.aer.[id number] 12/27/18 Inhaler] Levothyroxine [Synthroid] 150 mcg PO DAILY #30 tablet 12/27/18 predniSONE [PredniSONE] 40 mg PO DAILY #10 tablet 12/27/18 Allergies Allergy/AdvReac Type Severity Reaction Status Date / Time No Known Allergies Allergy Verified 10/03/17 07:17 Review of Systems: *See History of Present Illness for more detail Constitutional: Denies: fever, chills Cardiovascular: Denies: chest pain Respiratory: Denies: dyspnea, cough, hemoptysis Gastrointestinal: Denies: abdominal pain, nausea, vomiting, diarrhea, constipation, hematemesis, melena, hematochezia Genitourinary: Denies: hematuria Musculoskeletal: Denies: back pain, neck pain Neurological: Denies: headache, weakness, lightheadedness/dizziness, numbness, paresthesias, difficulty with ambulation. Endocrine: Denies: fatigue All systems ED: reviewed and negative except as stated. Review of Systems: As Per HPI Past Medical History - Past Medical History Medical history: Reports: hyperlipidemia, hypertension, thyroid disease Psychiatric history: Reports: schizophrenia - Social History Smoking Status: Current every day smoker Smokeless Tobacco Status: No Alcohol use: Reports: unknown Drug use: Reports: none Physical Exam Constitutional: No acute distress, [id number], engaged to conversation, speech is fluid, answers questions appropriately Neuro: GCS 15, no overt focal neurological deficits Head: Atraumatic, normocephalic Eyes: Pupils equal, round and reactive to light, no scleral icterus, no conjunctival injection Neck: Trachea midline without deviation. Anterior neck is supple without swelling. *Chest: Symmetric chest wall rise *Heart: Cardiac rate is bradycardic. Cardiac rhythm regular with S1 and S2 , no S3 or S4 appreciated, no murmurs, gallops, rubs, or clicks. *Lungs: Lungs are clear to auscultation bilaterally, without accessory muscle use or prolonged expiratory phase. No wheezes, rhonchi or stridor appreciated. Abdomen: "Tightness" diffusely to palpation without tenderness noted. Abdomen is flat, soft to palpation, normal bowel sounds. No abdominal bruit auscultated. Non-distended, non-rigid, no organomegaly, no ascites appreciated. No pulsatile mass, no tenderness or guarding to palpation in all four quadrants, no rebound Extremities: Normal capillary refill without evidence of pedal edema, joint swelling or erythema. Pulses/motor intact in all 4 extremities. Psychiatric exam: Patient displays a normal affect and mood for the environment. No overt signs of hallucination. Integumentary: warm, dry, intact, normal color. No rash, cyanosis, diaphoresis, erythema, or pallor - General Limitations: no limitations General appearance: alert, in no apparent distress Course Course Narrative: Differential diagnosis includes but is not limited to: COPD exacerbation Myocardial ischemia Intracranial pathology Electrolyte imbalance Tests: CBC, BMP, hepatic panel, ammonia, chest x-ray, CT scan of the head, troponin Treatments: DuoNeb's plus Solu-Medrol. - Reevaluation(s) Reevaluation #1: Spoke with Dr. Hsieh in interventional cardiology regarding patient at the request of the hospitalist Cardiology consulted and is following. Vital Signs Temperature 97.7 F 12/26/18 10:27 Pulse Rate 51 12/26/18 10:27 Respiratory Rate 17 12/26/18 10:27 Blood Pressure 134/61 12/26/18 10:27 O2 Sat by Pulse Oximetry 97 12/26/18 10:27 Temperature 97.6 F 12/27/18 06:52 Pulse Rate 79 12/27/18 06:52 Respiratory Rate 18 12/27/18 07:36 Blood Pressure 115/92 12/27/18 06:52 O2 Sat by Pulse Oximetry 95 12/27/18 07:36 Oxygen Delivery Oxygen Delivery Nasal Cannula Shortness of Breath/Dyspnea - MDM Narrative Medical decision making narrative: Laboratory, imaging, EKG results are negative for acute pathology. Patient continues to be pleasantly confused here in the ED No signs acute focal neurological deficits. Patient be admitted to hospitalist medicine service for altered mental status in the setting of COPD with consultation to interventional cardiology given patient's bradycardia Patient verbalizes understanding and agreement with this plan. Dr. Don accepting admission. - Lab Data Lab results reviewed: Yes I reviewed the patient's lab results. Result diagrams: 12/28/18 09:21 12/28/18 09:21 Lab Results 12/26/18 12/26/18 12/26/18 Range/Units 11:00 11:00 11:00 WBC 7.8 (4.3-11.1) K/mcL RBC 4.41 (4.19-5.50) M/mcL Hgb 12.9 (12.9-16.9) g/dL Hct 40.4 (37.5-50.1) % MCV 91.6 (83.0-100.0) fL MCH 29.3 (28.0-33.3) pg MCHC 31.9 (31.6-35.5) g/dL RDW 13.4 (11.5-14.5) % Plt Count 218 (140-400) K/mcL MPV 11.5 (9.4-12.4) fL Immature Gran % 0.1 (0-4) % Seg Neutrophils % 67.2 % Lymphocytes % 19.7 % Monocytes % 9.7 % Eosinophils % 3.0 % Basophils % 0.3 % Neutrophils # 5.2 (1.6-8.9) K/mcL Lymphocytes # 1.5 (0.6-4.6) K/mcL Monocytes # 0.8 (0.0-1.3) K/mcL Eosinophils # 0.2 (0.0-0.6) K/mcL Basophils # 0.0 (0.0-0.2) K/mcL Sodium 140 (136-145) mEq/L Potassium 4.4 (3.5-5.1) mEq/L Chloride 108 H (98-107) mEq/L Carbon Dioxide 27 (23-29) mEq/L BUN 20 (8-23) mg/dL Creatinine 1.34 H (0.70-1.30) mg/dL Est GFR ( Amer) > 60 (> 60) Est GFR (Non-Af Amer) 52 L (> 60) BUN/Creatinine Ratio 15 (6-26) Glucose 80 (70-105) mg/dL Calculated Osmolality 292 (280-300) Calcium 9.5 (8.6-10.3) mg/dL Phosphorus 2.8 (2.7-4.5) mg/dL Magnesium 2.0 (1.6-2.6) mg/dL Total Bilirubin 0.5 (0.3-1.0) mg/dL Direct Bilirubin 0.1 (0.0-0.2) mg/dL Indirect Bilirubin 0.4 (0.0-1.2) mg/dL AST 11 L (13-39) Units/L ALT 7 (7-52) Units/L Alkaline Phosphatase 85 (34-104) Units/L Ammonia 25 (16-53) mcmol/L Troponin I < 0.03 (< 0.04) ng/mL Serum Total Protein 6.9 (6.4-8.9) g/dL Albumin 3.8 (3.5-5.7) g/dL Globulin 3.1 (2.4-3.5) g/dL Albumin/Globulin Ratio 1.2 (1.1-2.2) TSH (0.340-5.600) mcIU/mL Free T4 (0.70-2.00) ng/dl 12/26/18 Range/Units 16:23 WBC (4.3-11.1) K/mcL RBC (4.19-5.50) M/mcL Hgb (12.9-16.9) g/dL Hct (37.5-50.1) % MCV (83.0-100.0) fL MCH (28.0-33.3) pg MCHC (31.6-35.5) g/dL RDW (11.5-14.5) % Plt Count (140-400) K/mcL MPV (9.4-12.4) fL Immature Gran % (0-4) % Seg Neutrophils % % Lymphocytes % % Monocytes % % Eosinophils % % Basophils % % Neutrophils # (1.6-8.9) K/mcL Lymphocytes # (0.6-4.6) K/mcL Monocytes # (0.0-1.3) K/mcL Eosinophils # (0.0-0.6) K/mcL Basophils # (0.0-0.2) K/mcL Sodium (136-145) mEq/L Potassium (3.5-5.1) mEq/L Chloride (98-107) mEq/L Carbon Dioxide (23-29) mEq/L BUN (8-23) mg/dL Creatinine (0.70-1.30) mg/dL Est GFR ( Amer) (> 60) Est GFR (Non-Af Amer) (> 60) BUN/Creatinine Ratio (6-26) Glucose (70-105) mg/dL Calculated Osmolality (280-300) Calcium (8.6-10.3) mg/dL Phosphorus (2.7-4.5) mg/dL Magnesium (1.6-2.6) mg/dL Total Bilirubin (0.3-1.0) mg/dL Direct Bilirubin (0.0-0.2) mg/dL Indirect Bilirubin (0.0-1.2) mg/dL AST (13-39) Units/L ALT (7-52) Units/L Alkaline Phosphatase (34-104) Units/L Ammonia (16-53) mcmol/L Troponin I (< 0.04) ng/mL Serum Total Protein (6.4-8.9) g/dL Albumin (3.5-5.7) g/dL Globulin (2.4-3.5) g/dL Albumin/Globulin Ratio (1.1-2.2) TSH < 0.010 L (0.340-5.600) mcIU/mL Free T4 1.36 (0.70-2.00) ng/dl - Radiology Data Radiology results reviewed: Yes I reviewed the patient's radiology results. Chest X-Ray 12/26/18 10:24 IMPRESSION: No acute cardiopulmonary disease D/ / Donald Lira MD / Donald Lira MD Interpreting Provider: Donald Lira MD Head CT 12/26/18 10:24 IMPRESSION: No acute intracranial abnormality. There is age-appropriate cerebral atrophy with evidence of chronic periventricular small vessel ischemic disease. D/ / Rojelio Alfaro MD / Rojelio Alfaro MD Interpreting Provider: Rojelio Alfaro MD - EKG Data EKG attestation: Yes I reviewed and interpreted this EKG. EKG results narrative: Patient EKG shows sinus rhythm with PVCs, at a heart of 52 bpm, [place] interval of 174 ms, QR worship of 81 ms, QT/QTc interval 474/441 ms respectively. There are no significant ST segment elevations, depressions, pathologic Q waves, there is concern for biphasic T waves in lead V1 through V3 which appear consistent with prior EKG but is difficult to confirm given quality of old reading. This EKG performed today is generally consistent otherwise with prior EKG performed on 10/02/2017. Attestation Statement - Attestation Attestation: I have seen this patient with the resident physician, I have personally evaluated this patient. I had reviewed the chart and document dictation by the resident physician and aM in agreement with the information documented by the resident physician. Please see documentation by the resident physician for complete chart including past medical history, family medical history, review of systems, current history and physical and laboratory and imaging studies. I was present for all procedures, provided direct supervision for all p rocedures, was present for the entirety of all procedures and provided direct guidance during the procedures. Please see documentation by the resident physician for any procedures performed. I have reviewed all interpretations of EKGs, and reviewed all EKGs performed on patient's as well. I have also reviewed reports of imaging as provided by radiology.
--- NOTE | 2018-12-26 10:54 | Emergency Department Note ---
Disposition Clinical Impression: Near syncope, Dizziness on standing, Bradycardia Disposition: Admitted As Inpatient Condition: Fair Forms: ED Satisfaction Letter Time of Disposition: 13:21 Dizziness HPI - General Chief Complaint: ED Dizziness Stated Complaint: dizziness/bradycardia Time Seen by Provider: 12/26/18 10:18 Limitations: no limitations - Related Data Home Medications Medication Instructions Recorded Confirmed Aspirin [Lo-Dose Aspirin EC] 81 mg PO QAM 02/19/17 12/26/18 Atorvastatin [Lipitor] 10 mg PO HS 02/19/17 12/26/18 Calcium Carbonate/Vitamin D3 0.5 tab PO BID 02/19/17 12/26/18 [Calcium 500-Vit D3 200 Tablet] Citalopram [CeleXA] 20 mg PO DAILY 02/19/17 12/26/18 Docusate Sodium [Dok] 100 mg PO BID 02/19/17 12/26/18 Levothyroxine Sodium [Synthroid] 200 mcg PO DAILY 02/19/17 12/26/18 OLANZapine [Zyprexa] 20 mg PO HS 02/19/17 12/26/18 Amlodipine Besylate/Benazepril 1 cap PO DAILY 10/03/17 12/26/18 [Lotrel 5-20 mg Capsule] Previous Rx's Medication Instructions Recorded GuaiFENesin ER [Mucinex] 600 mg PO BID #10 tbbp.12hr 10/09/17 Ipratropium/Albuterol Neb [Duoneb] 3 ml IH [id number] PRN 30 Days #30 10/09/17 inhsol Levofloxacin [Levaquin] 750 mg PO Q48H #2 tablet 10/09/17 Allergies Allergy/AdvReac Type Severity Reaction Status Date / Time No Known Allergies Allergy Verified 10/03/17 07:17 Past Medical History - Past Medical History Medical history: Reports: hyperlipidemia, hypertension, thyroid disease Psychiatric history: Reports: schizophrenia - Social History Smoking Status: Current every day smoker Smokeless Tobacco Status: No Alcohol use: Reports: unknown Drug use: Reports: none Physical Exam - General Limitations: no limitations General appearance: alert, in no apparent distress Course Vital Signs Temperature 97.7 F 12/26/18 10:27 Pulse Rate 51 12/26/18 10:27 Respiratory Rate 17 12/26/18 10:27 Blood Pressure 134/61 12/26/18 10:27 O2 Sat by Pulse Oximetry 97 12/26/18 10:27 Temperature 97.7 F 12/26/18 10:27 Pulse Rate 82 12/26/18 12:00 Respiratory Rate 19 12/26/18 11:20 Blood Pressure 126/81 12/26/18 12:00 O2 Sat by Pulse Oximetry 100 12/26/18 12:00 Oxygen Delivery Oxygen Delivery Nasal Cannula Dizziness - Lab Data Result diagrams: 12/26/18 11:00 12/26/18 11:00 Lab Results 12/26/18 12/26/18 12/26/18 Range/Units 11:00 11:00 11:00 WBC 7.8 (4.3-11.1) K/mcL RBC 4.41 (4.19-5.50) M/mcL Hgb 12.9 (12.9-16.9) g/dL Hct 40.4 (37.5-50.1) % MCV 91.6 (83.0-100.0) fL MCH 29.3 (28.0-33.3) pg MCHC 31.9 (31.6-35.5) g/dL RDW 13.4 (11.5-14.5) % Plt Count 218 (140-400) K/mcL MPV 11.5 (9.4-12.4) fL Immature Gran % 0.1 (0-4) % Seg Neutrophils % 67.2 % Lymphocytes % 19.7 % Monocytes % 9.7 % Eosinophils % 3.0 % Basophils % 0.3 % Neutrophils # 5.2 (1.6-8.9) K/mcL Lymphocytes # 1.5 (0.6-4.6) K/mcL Monocytes # 0.8 (0.0-1.3) K/mcL Eosinophils # 0.2 (0.0-0.6) K/mcL Basophils # 0.0 (0.0-0.2) K/mcL Sodium 140 (136-145) mEq/L Potassium 4.4 (3.5-5.1) mEq/L Chloride 108 H (98-107) mEq/L Carbon Dioxide 27 (23-29) mEq/L BUN 20 (8-23) mg/dL Creatinine 1.34 H (0.70-1.30) mg/dL Est GFR ( Amer) > 60 (> 60) Est GFR (Non-Af Amer) 52 L (> 60) BUN/Creatinine Ratio 15 (6-26) Glucose 80 (70-105) mg/dL Calculated Osmolality 292 (280-300) Calcium 9.5 (8.6-10.3) mg/dL Phosphorus 2.8 (2.7-4.5) mg/dL Magnesium 2.0 (1.6-2.6) mg/dL Total Bilirubin 0.5 (0.3-1.0) mg/dL Direct Bilirubin 0.1 (0.0-0.2) mg/dL Indirect Bilirubin 0.4 (0.0-1.2) mg/dL AST 11 L (13-39) Units/L ALT 7 (7-52) Units/L Alkaline Phosphatase 85 (34-104) Units/L Ammonia 25 (16-53) mcmol/L Troponin I < 0.03 (< 0.04) ng/mL Serum Total Protein 6.9 (6.4-8.9) g/dL Albumin 3.8 (3.5-5.7) g/dL Globulin 3.1 (2.4-3.5) g/dL Albumin/Globulin Ratio 1.2 (1.1-2.2) Attestation Statement - Attestation Attestation: I have seen this patient with the resident physician, I have personally evaluated this patient. I had reviewed the chart and document dictation by the resident physician and aM in agreement with the information documented by the resident physician. Please see documentation by the resident physician for complete chart including past medical history, family medical history, review of systems, current history and physical and laboratory and imaging studies. I was present for all procedures, provided direct supervision for all procedures, was present for the entirety of all procedures and provided direct guidance during the procedures. Please see documentation by the resident physician for any procedures performed. I have reviewed all interpretations of EKGs, and reviewed all EKGs performed on patient's as well. I have also reviewed reports of imaging as provided by radiology. Patient presents emergency Department with chief complaint of lightheadedness and dizziness that started over the last 1-2 days, specifically with standing and getting up and walking around. He states he feels like he was lightheaded like he might pass out he has no pain no headache no neck pain or chest pain no shortness of breath. States he has never had anything like this before. No recent fevers chills black or bloody stool. Patient is a slightly poor strength secondary to his underlying history of schizophrenia, he does live in a alf facility. He was sent in for further evaluation thereof. The paramedics noted, that en route to the hospital patient was bradycardic, they report that his heart rate would drop into the 30s en route to the hospital. They report that his blood pressure remained stable and he had no significant symptoms at rest while he was lying down or sitting. Upon presentation, auscultation and palpation revealed to me a heart rate that I counted at 41, for normal sinus beats, however I felt 8 associated transmitted early PVCs, for heart rate of roughly 50 on my exam, on the monitor heart rate was roughly 55, when he got hooked up. There was sinus beats with relatively frequent PVCs but no runs of PVCs. The remainder of his vital signs were all within acceptable limits without hypotension, blood pressure 134 systolic, without any current symptoms of dizziness. He is on a calcium channel del. No reported recent changes in this. On physical examination he is alert awake oriented and cooperative, cranial nerves are intact, lungs are clear apart from some scattered wheezes, without f ocal rales rhonchi or crackles, but no increased work of breathing. Cardiac examination revealed bradycardic rhythm with frequent PVCs, 2/6 systolic murmur no rubs no gallops or JVD or peripheral edema no obvious carotid bruits. Abdomen was soft, with some mild tenderness with deep palpation of the upper abdomen which he states just feels full we push on it, but no palpable pulsatile mass and no true pain or tenderness. Lower abdomen is nontender. No ecchymosis on the abdomen. Normal distal pulses. No focal neurologic findings. EKG was a normal sinus rhythm sinus bradycardia, with occasional PVC, leads V2 and V3 demonstrate slightly biphasic appearance to the T wave no deep-seated T-w ave inversions, no true findings of Wellens syndrome however or Brugada pattern, however borderline appearance to the EKG when compared to prior EKG from within the past year, heart rate is slower however no significant other changes difficult to assess the biphasic appearance of V2 and V3 secondary to motion artifact in the prior EKG, does seem to be slightly more prominent compared to previous. Basic laboratory studies were ordered, workup for dizziness was initiated. Patient will require admission to the hospital for further evaluation of dizziness with exertion, with potential bradycardia as the underlying cause with concerns for potential sick sinus syndrome versus other cause of his bradycardia as witnessed prehospital. No evidence of block on his EKG. Basic laboratory studies were all within acceptable limits imaging of the chest and head, as interpreted by radiology showed no acute findings. Patient was admitted to the hospital for further evaluation and management of a near syncope and reported prehospital bradycardia. No evidence of significant bradycardia during his stay here in the emergency department.
[2018-12-26 11:18] LABS: Basophils % 0.3 %; Eosinophils # 0.2 K/mcL (0.0-0.6); Hematocrit 40.4 % (37.5-50.1); Hemoglobin 12.9 g/dL (12.9-16.9); Immature Granulocytes % 0.1 % (0-4); Lymphocytes # 1.5 K/mcL (0.6-4.6); Lymphocytes % 19.7 %; Mean Corpuscular HGB Conc 31.9 g/dL (31.6-35.5); Mean Corpuscular Hemoglobin 29.3 pg (28.0-33.3); Mean Corpuscular Volume 91.6 fL (83.0-100.0); Mean Platelet Volume 11.5 fL (9.4-12.4); Monocytes # 0.8 K/mcL (0.0-1.3); Monocytes % 9.7 %; Neutrophils # 5.2 K/mcL (1.6-8.9); Platelet Count 218 K/mcL (140-400); Red Blood Count 4.41 M/mcL (4.19-5.50); Red Cell Distribution Width 13.4 % (11.5-14.5); Segmented Neutrophils % 67.2 %
[2018-12-26 11:32] LABS: Alanine Aminotransferase 7 Units/L (7-52); Albumin 3.8 g/dL (3.5-5.7); Albumin/Globulin Ratio 1.2 (1.1-2.2); Alkaline Phosphatase 85 Units/L (34-104); Aspartate Amino Transferase 11 Units/L (13-39); BUN/Creatinine Ratio 15 (6-26); Bilirubin,Direct 0.1 mg/dL (0.0-0.2); Bilirubin,Indirect 0.4 mg/dL (0.0-1.2); Bilirubin,Total 0.5 mg/dL (0.3-1.0); Blood Urea Nitrogen 20 mg/dL (8-23); Calcium 9.5 mg/dL (8.6-10.3); Carbon Dioxide 27 mEq/L (23-29); Chloride 108 mEq/L (98-107); Globulin 3.1 g/dL (2.4-3.5); Glucose 80 mg/dL (70-105); Osmolality,Calculated 292 (280-300); Phosphorous 2.8 mg/dL (2.7-4.5); Potassium 4.4 mEq/L (3.5-5.1); Sodium 140 mEq/L (136-145); Total Protein 6.9 g/dL (6.4-8.9); Troponin I < 0.03 ng/mL (< 0.04); eGFR For Non-African Americans 52 (> 60)
[2018-12-26] MEDS ORDERED: Acetaminophen 325 MG TABLET PO PRN (14:56)
[2018-12-26] MEDS ORDERED: Naloxone 0.4 MG/ML INJ IVP PRN (14:56)
--- NOTE | 2018-12-26 15:17 | Internal Med History&Physical ---
Date of Encounter: 12/26/18 Time of Encounter: 15:00 Internal Medicine - H&P: HPI Chief complaint: Dizziness, bradycardia Admitted From: Emergency Dept Plans for Post Hospital Care: Home History of present illness: Mr. Johnson is a 78 year old male patient with history of hypertension, hypothyroidism, hyperlipidemia, chronic kidney disease, COPD who presented to the ER from his [facility] with complaints of dizziness and lightheadedness especially with ambulation. Patient currently denies any symptoms. He is he does have a history of schizophrenia and depression. He is not able to provide much history besides stating that he feels much better now. He denies any shortness of breath. No chest pain. No palpitations. He is awake and alert but does appear somewhat confused. No reported falls. He has chronic cough. No fever or chills reported. According to the review of ED records, patient was noted to be bradycardic by EMS and his heart rate was down to as low as the 30s on his way here. Upon presentation to the ED, his heart rate was in the 50s. His heart rate has since improved and is currently in the 70s-90s. Past Med Surg Social Fam HX - Past Medical History Medical history: COPD, hyperlipidemia, hypertension, renal disease, thyroid disease Additional medical history: BPH Psychiatric history: depression, schizophrenia - Past Surgical History Additional surgical history: UNKNOWN - Social History Smoking Status: Current every day smoker Smokeless Tobacco Status: No Alcohol use: unknown Drug use: none - Additional Family History Additional family history: No reported significant family history. Internal Medicine - H&P: Meds Aspirin [Lo-Dose Aspirin EC] 81 mg PO QAM 02/19/17 [History] Atorvastatin [Lipitor] 10 mg PO HS 02/19/17 [History] Calcium Carbonate/Vitamin D3 [Calcium 500-Vit D3 200 Tablet] 0.5 tab PO BID 02/19/17 [History] Citalopram [CeleXA] 20 mg PO DAILY 02/19/17 [History] Docusate Sodium [Dok] 100 mg PO BID PRN 02/19/17 [History] Levothyroxine Sodium [Synthroid] 200 mcg PO DAILY@1200 02/19/17 [History] OLANZapine [Zyprexa] 20 mg PO HS 02/19/17 [History] Amlodipine Besylate/Benazepril [Lotrel 5-20 mg Capsule] 1 cap PO DAILY 10/03/17 [History] Diclofenac Sodium 1 appl TP QID PRN MDD 4 APPLICATIONS 12/26/18 [History] Allergy/AdvReac Type Severity Reaction Status Date / Time No Known Allergies Allergy Verified 10/03/17 07:17 All Systems PM: A 10-system review of systems was performed and is negative for pertinent findings except as documented above in the HPI. - Constitutional Constitutional: no chills, no fever(s), no night sweats - EENT Eyes: no change in vision, no discharge, no pain, no photophobia Ears: no ear discharge, no ear pain, no tinnitus Nose, mouth and throat: no dysphagia, no nasal discharge, no neck pain, no sore throat - Cardiovascular Cardiovascular ROS IM: lightheadedness, no chest pain, no diaphoresis, no dyspnea, no palpitations, no syncope - Respiratory Respiratory: no cough, no dyspnea, no wheezing, no excessive phlegm production - Gastrointestinal Gastrointestinal: no abdominal pain, no diarrhea, no hematemesis, no hematochezia, no melena, no nausea, no vomiting - Musculoskeletal Musculoskeletal ROS IM: no numbness, no tingling - Integumentary Integumentary IM: no rash, no unusual bruising - Neurological Neurological ROS: no confusion, no convulsions, no focal weakness, no numbness, no tingling, no tremor(s) - Hematologic/Lymphatic Hematologic/Lymphatic: no easy bruising - Constitutional Vitals: Temp Pulse Resp BP Pulse Ox 97.7 F 93 19 105/62 94 12/26/18 10:27 12/26/18 14:02 12/26/18 14:02 12/26/18 14:02 12/26/18 14:02 General appearance: Present: cooperative, A&O X 3, pleasant, no acute distress Exam: General: Patient is alert, no acute distress, oriented x 3 Head: atraumatic, normocephalic, ENT: Mucous membranes moist Eye: normal appearance, PERRL, no scleral icterus, no conjunctival injection Neck: normal inspection, trachea midline, full ROM, no carotid bruits Chest: normal inspection, symmetric chest rise Respiratory: Good respiratory effort. Normal breath sounds. No wheezing or crackles. Cardiovascular: Regular rate and rhythm. s1 and s2 normal No clicks, rubs, gallops, or murmurs. No pedal edema Abdomen: Abdomen is soft, nontender. Bowel sounds are present Musculoskeletal: Spontaneously moving all extremities Skin: warm, dry, intact. Neuro: Alert oriented x 3 normal cranial nerves, no focal deficits Psych: Patient's affect is normal Internal Med - H&P Results - Labs CBC & Chem 7: 12/26/18 11:00 12/26/18 11:00 Labs: Short CBC 12/26/18 Range/Units 11:00 WBC 7.8 (4.3-11.1) K/mcL Hgb 12.9 (12.9-16.9) g/dL Hct 40.4 (37.5-50.1) % Plt Count 218 (140-400) K/mcL Neutrophils # 5.2 (1.6-8.9) K/mcL BMP 12/26/18 11:00 Sodium 140 Potassium 4.4 Chloride 108 H Carbon Dioxide 27 BUN 20 Creatinine 1.34 H Glucose 80 Calcium 9.5 Cardiac Enzymes 12/26/18 Range/Units 11:00 Troponin I < 0.03 (< 0.04) ng/mL Liver Function 12/26/18 Range/Units 11:00 Total Bilirubin 0.5 (0.3-1.0) mg/dL Direct Bilirubin 0.1 (0.0-0.2) mg/dL AST 11 L (13-39) Units/L ALT 7 (7-52) Units/L Alkaline Phosphatase 85 (34-104) Units/L Albumin 3.8 (3.5-5.7) g/dL - EKG Data -: EKG Interpreted by Myself EKG shows normal: sinus rhythm Rate: bradycardia - EKG Data EKG comments: 12/26/18 15:27 EKG done here initially shows sinus bradycardia with multiple PVCs. QTC of 440. - Impressions ITS Impressions Chest X-Ray 12/26/18 10:24 IMPRESSION: No acute cardiopulmonary disease D/ / Donald Lira MD / Donald Lira MD Interpreting Provider: Donald Lira MD Head CT 12/26/18 10:24 IMPRESSION: No acute intracranial abnormality. There is age-appropriate cerebral atrophy with evidence of chronic periventricular small vessel ischemic disease. D/ / Rojelio Alfaro MD / Rojelio Alfaro MD Interpreting Provider: Rojelio Alfaro MD - Assessment and Plan (1) Bradycardia Current Visit: Yes Status: Acute (2) Near syncope Current Visit: Yes Status: Acute (3) PAF (paroxysmal atrial fibrillation) Current Visit: No Status: Acute (4) CKD (chronic kidney disease) stage 3, GFR 30-59 ml/min Current Visit: No Status: Chronic - Summary of Assessment and Plan Summary of Assessment and Plan: Symptomatic bradycardia and dizziness/near syncope: Patient with reported episodes of symptomatic bradycardia and dizziness with ambulation. Currently heart rate has improved. He did do in the ER along with Solu-Medrol. Will monitor with telemetry. Check TSH level. Patient is not on any rate controlling medications. Cardiology consulted. We will check orthostatic blood pressure. History of atrial fibrillation: Reported history of atrial fibrillation per medical records. Currently patient is in sinus rhythm. Not on anticoagulation at home. Chronic kidney disease stage III: Creatinine is at baseline. We will monitor. COPD with mild exacerbation: Continue bronchodilators. O2 supplementation if needed. 5 days short course of prednisone. Schizophrenia: Patient on Zyprexa. Will continue. Monitor QT interval. DVT prophylaxis with SCDs. Moderate risk for complications. - Time Spent With Patient Total time spent is greater than 50% in coordination of care (as documented) at patient's floor/unit and/or counseling patient:
[2018-12-26] MEDS ORDERED: DICLOFENAC SODIUM TP PRN (15:25)
[2018-12-26] MEDS: Ipratropium/Albuterol Neb 3 ML IH SCH ×2 (16:04→20:03)
[2018-12-26 17:17] LABS: Thyroid Stimulating Hormone < 0.010 mcIU/mL (0.340-5.600)
[2018-12-26] MEDS: OLANZapine 10 MG TAB.RAPDIS PO SCH (21:17)
[2018-12-27] MEDS: Ipratropium/Albuterol Neb 3 ML IH SCH ×6 (00:11→19:31)
--- NOTE | 2018-12-27 06:20 | Electrocardiograph Report ---
[facility] Test Date: 2018-12-26 Pat Name: Jack Johnson Department: EXAM20 Room: 3B64 Gender: M Change Management Consultant: : 1940 Requested By: David Carter Order Number: [id number] Reading MD: Jack Sahu Measurements Intervals Avenue Rate: 52 P: 70 CO: 174 QRS: 84 QRSD: 81 T: 49 QT: 474 QTc: 441 Interpretive Statements Sinus rhythm Multiple ventricular premature complexes Borderline right axis deviation Anteroseptal infarct, old Electronically Signed On 12-27-2018 6:18:11 EDT by Jack Sahu
[2018-12-27 07:29] LABS: Basophils % 0.1 %; Hematocrit 35.2 % (37.5-50.1); Hemoglobin 11.5 g/dL (12.9-16.9); Mean Corpuscular HGB Conc 32.7 g/dL (31.6-35.5); Monocytes % 5.3 %; Red Cell Distribution Width 13.5 % (11.5-14.5)
[2018-12-27 07:30] LABS: Immature Granulocytes % 0.9 % (0-4); Lymphocytes # 0.9 K/mcL (0.6-4.6); Lymphocytes % 3.5 %; Mean Corpuscular Hemoglobin 29.6 pg (28.0-33.3); Mean Corpuscular Volume 90.7 fL (83.0-100.0); Mean Platelet Volume 11.9 fL (9.4-12.4); Monocytes # 1.4 K/mcL (0.0-1.3); Neutrophils # 23.1 K/mcL (1.6-8.9); Platelet Count 191 K/mcL (140-400); Red Blood Count 3.88 M/mcL (4.19-5.50); Segmented Neutrophils % 90.2 %
[2018-12-27 07:42] LABS: Platelet Estimate Normal (Normal)
[2018-12-27 07:46] LABS: Calcium 9.5 mg/dL (8.6-10.3); Potassium 4.4 mEq/L (3.5-5.1)
--- NOTE | 2018-12-27 12:07 | Cardiology Consult Note ---
Date of Encounter: 12/27/18 Time of Encounter: 09:30 Assessment and Plan (1) Dizziness on standing Current Visit: Yes Status: Acute Per Cardiology: -Patient reported dizziness upon standing. -HR noted to be bradycardic on admission. -HRs currently normal. Denies current dizziness. -Of note, patient is on zyprexa which can cause orthostatic hypotension and celexa which can cause bradycardia. -Consider other agents besides zyprexa and celexa. (2) Bradycardia Current Visit: Yes Status: Acute Per cardiology: -Bradycardic on admission. -On celexa at home with side effect of bradycardia. -Not on any AV renuka blockers at home. -Telemetry reviewed with average HR previous 12 hours noted to be 72, SR. -Consider other agent besides celexa. (3) Abnormal echocardiogram Current Visit: Yes Status: Acute Per cardiology: -Patient was admitted 09/2017 for pneumonia. -TTE at that time with LVEF 55%, segmental wall motion abnormalities were noted. -On asa, statin. -Will add plavix. Discussion w patient/family: The assessment and plan as outlined above was discussed with the patient who expressed understanding and agreement. All questions were answered. Thank you for involving us in the care of your patient. Please call with any questions. Discussed and reviewed with . History of Present Illness Consult date: 12/26/18 Requesting physician: David Fontaine Consult reason: bradycardia Chief complaint: dizziness History of present illness: Mr. Johnson is a 78 year old male with a relevant past medical history of HTN, CKD stage III, schizophrenia, hypothyroidism, who presented to [facility] with complaints of dizziness. Patient lives in a assisted and had been complianing of dizziness for a couple days. Staff called EMS. Upon EMS arrival, HR was reportedly 30s. No strips to review. Patient was then taken to [facility]. ECG on presententation to [facility] with HR 50s. Patient deneis current dizziness, lightheadedness. Denies chest pain. Denies shortness of breath. Past Med Surg Social Fam HX - Past Medical History Attestation: Yes The following information was validated with the patient. Source: patient, old records reviewed Medical history: COPD, hyperlipidemia, hypertension, renal disease, thyroid disease Additional medical history: BPH Psychiatric history: depression, schizophrenia - Past Surgical History Additional surgical history: UNKNOWN - Social History Smoking Status: Current every day smoker Smokeless Tobacco Status: No Alcohol use: unknown Drug use: none - Family History Mother History Unknown: Yes Father History Unknown: Yes Medications and Allergies Aspirin [Lo-Dose Aspirin EC] 81 mg PO QAM 02/19/17 [History] Atorvastatin [Lipitor] 10 mg PO HS 02/19/17 [History] Calcium Carbonate/Vitamin D3 [Calcium 500-Vit D3 200 Tablet] 0.5 tab PO BID 02/19/17 [History] Citalopram [CeleXA] 20 mg PO DAILY 02/19/17 [History] Docusate Sodium [Dok] 100 mg PO BID PRN 02/19/17 [History] Levothyroxine Sodium [Synthroid] 200 mcg PO DAILY@1200 02/19/17 [History] OLANZapine [Zyprexa] 20 mg PO HS 02/19/17 [History] Amlodipine Besylate/Benazepril [Lotrel 5-20 mg Capsule] 1 cap PO DAILY 10/03/17 [History] Diclofenac Sodium 1 appl TP QID PRN MDD 4 APPLICATIONS 12/26/18 [History] Allergy/AdvReac Type Severity Reaction Status Date / Time No Known Allergies Allergy Verified 10/03/17 07:17 All Systems Review: The remainder of the systems were reviewed and are negative - Cardiovascular Cardiovascular: as per HPI, lightheadedness Physical Examination Vital Signs, Last 4 Hours Resp Pulse Ox 12/27/18 11:01 16 95 General: Conversant, No Apparent Distress HEENT: Atraumatic, Normocephaly, Mucus Membranes Moist Neck: No JVD, Normal carotid pulses Cardiac: Reg Rate and Rhythm, Normal S1 and S2, No Murmur Lungs: Normal Breath Sounds, No Wheeze, Rales, Rhonchi Neuro: Alert and responsive, No focal deficits noted Abdomen: Soft, Non-Tender Skin: No rashes noted on visualized skin Musculoskeletal: No Chest Wall Tenderness Extremities: No Clubbing, No Cyanosis, No Edema, Normal Pulses Results 12/27/18 07:06 12/27/18 07:06 Lab Results Active Medications Acetaminophen (Tylenol) 650 mg PO Q6HR PRN PRN Reason: Mild Pain/Fever Stop: 06/27/19 14:57 Albuterol/Ipratropium (Duoneb) 3 ml IH [id number]; Protocol Stop: 06/27/19 16:01 Last Admin: 12/27/18 11:00 Dose: 3 ml Documented by: Amlodipine Besylate (Norvasc) 5 mg PO DAILY [facility]; Protocol Stop: 06/28/19 09:01 Aspirin (Aspirin Ec) 81 mg PO QAM [facility] Stop: 06/28/19 09:01 Atorvastatin Calcium (Lipitor) 10 mg PO HS [facility] Stop: 06/27/19 21:01 Last Admin: 12/26/18 21:17 Dose: 10 mg Documented by: Calcium Carbonate (Tums) 500 mg PO BID [facility] Stop: 06/27/19 21:01 Last Admin: 12/26/18 21:17 Dose: 500 mg Documented by: Citalopram Hydrobromide (Celexa) 20 mg PO DAILY [facility] Stop: 06/28/19 09:01 Docusate Sodium (Colace) 100 mg PO BID PRN; Protocol PRN Reason: Constipation Stop: 06/27/19 15:26 Levothyroxine Sodium (Synthroid) 200 mcg PO DAILY@1200 [facility] Stop: 06/28/19 12:01 Lisinopril (Zestril) 20 mg PO DAILY [facility] Stop: 06/28/19 09:01 Naloxone HCl (Narcan) 0.4 mg IVP Q2MPRN PRN PRN Reason: SEE COMMENTS Stop: 06/27/19 14:57 Olanzapine (Zyprexa Zydis) 20 mg PO HS [facility] Stop: 06/27/19 21:01 Last Admin: 12/26/18 21:17 Dose: 20 mg Documented by: Pharmacy Profile Note (Patient Taking Own Medication) 1 each TP QID PRN PRN Reason: HAND PAIN Prednisone (Prednisone) 40 mg PO DAILY [facility] Stop: 12/31/18 09:01 Vitamin D (Vitamin D) 1,000 unit PO DAILY [facility] Stop: 06/28/19 09:01 Laboratory Tests 12/26/18 12/26/18 12/26/18 11:00 16:23 20:00 Hgb Creatinine 1.34 H Troponin I < 0.03 < 0.03 TSH < 0.010 L 12/27/18 12/27/18 07:06 07:06 Hgb 11.5 L Creatinine 1.45 H Troponin I TSH - Imaging and Cardiology Chest Xray: report reviewed Echo: report reviewed - EKG Interpretation EKG results cardiology: personally reviewed (ECG with SB, HR 52. PVCs noted.), other (Telemetry reviewed with average HR previous 12 hours noted to be 72, SR. PVCs, PACs noted. Short runof atrial tachcyardia noted.) Consult Discharge Plan - Plan Referrals: Kristopher Guerrero MD [Primary Care Provider] -
[2018-12-27] MEDS: Aspirin Enteric Coated 81 MG Tablet PO SCH (12:18)
[2018-12-27] MEDS: Lisinopril 20 MG TABLET PO SCH (12:18)
[2018-12-27] MEDS: Cholecalciferol (D-3) 1,000 UNIT TABLET PO SCH (12:18)
[2018-12-27] MEDS: predniSONE 20 MG TABLET PO SCH (12:18)
[2018-12-27] MEDS: amLODIPine 5 MG TABLET PO SCH (12:18)
--- NOTE | 2018-12-27 15:27 | Discharge Summary ---
- NOTES TO OUTPATIENT PROVIDER Notes to Outpatient Provider: f/u with PCP in one week. f/u with Cardiology as scheduled. You will d/c home on Holter monitor. Please stop taking Celexa since it might causing bradycardia for you. Orders not resulted at time of discharge: Pending orders 12/27/18 15:08 ECG 48 holter monitor setup [ECG] Routine Date of Encounter: 12/27/18 Time of Encounter: 15:23 - Discharge Diagnosis (1) Near syncope Priority: Primary Status: Acute (2) Bradycardia Priority: Primary Status: Acute (3) COPD exacerbation Priority: Primary Status: Acute (4) CKD (chronic kidney disease) stage 3, GFR 30-59 ml/min Priority: Secondary Status: Chronic (5) PAF (paroxysmal atrial fibrillation) Priority: Secondary Status: Acute Hospital course: Mr. Johnson is a 78 year old male patient with history of hypertension, hypothyroidism, hyperlipidemia, chronic kidney disease stage 3 and COPD pt who presented [facility] his [facility] with complaints of dizziness and lightheadedness especially with ambulation. He also complained about shortness of breath. He is he does have a history of schizophrenia and depression currently on Celexa and zyprexa. According to the review of ED records, patient was noted to be bradycardic by EMS and his heart rate was down to as low as the 30s on his way here. Upon presentation to the ED, his heart rate was in the 50s. His heart rate has since improved and is currently in the 70s-90s. He was admitted in the hospital and placed him on playground monitor. His serial troponin came back as negative. His TSH @ <0.0010. Patient was evaluated by waste elimination and who believes his bradycardia might be due to his Celexa side effect since he is not on any AV renuka blocking meds. Recommend to d/c Celexa and d/c him home with Holter monitor. His TSh was severely low so I cut down on his levothyroxine to 150 mcg. - Time Spent with Patient Total time spent providing and/or coordinating discharge services: - Discharge Medications Prescriptions: New Albuterol Sulfate [Albuterol Inhaler] 2 puff IH Q6HR PRN #1 hfa.[email or web address] PRN Reason: Shortness Of Breath predniSONE [PredniSONE] 40 mg PO DAILY #10 tablet Continued Atorvastatin [Lipitor] 10 mg PO HS Docusate Sodium [Dok] 100 mg PO BID PRN PRN Reason: Constipation Aspirin [Lo-Dose Aspirin EC] 81 mg PO QAM Calcium Carbonate/Vitamin D3 [Calcium 500-Vit D3 200 Tablet] 0.5 tab PO BID OLANZapine [Zyprexa] 20 mg PO HS Amlodipine Besylate/Benazepril [Lotrel 5-20 mg Capsule] 1 cap PO DAILY Diclofenac Sodium 1 appl TP QID PRN MDD 4 APPLICATIONS PRN Reason: HAND PAIN Discontinued Levothyroxine Sodium [Synthroid] 200 mcg PO DAILY@1200 Citalopram [CeleXA] 20 mg PO DAILY Home Medications: Aspirin [Lo-Dose Aspirin EC] 81 mg PO QAM 02/19/17 [History] Atorvastatin [Lipitor] 10 mg PO HS 02/19/17 [History] Calcium Carbonate/Vitamin D3 [Calcium 500-Vit D3 200 Tablet] 0.5 tab PO BID 02/19/17 [History] Docusate Sodium [Dok] 100 mg PO BID PRN 02/19/17 [History] OLANZapine [Zyprexa] 20 mg PO HS 02/19/17 [History] Amlodipine Besylate/Benazepril [Lotrel 5-20 mg Capsule] 1 cap PO DAILY 10/03/17 [History] Diclofenac Sodium 1 appl TP QID PRN MDD 4 APPLICATIONS 12/26/18 [History] Albuterol Sulfate [Albuterol Inhaler] 2 puff IH Q6HR PRN #1 hfa.aer.ad 12/27/18 [Rx] predniSONE [PredniSONE] 40 mg PO DAILY #10 tablet 12/27/18 [Rx] Allergies/Adverse Reactions: Allergy/AdvReac Type Severity Reaction Status Date / Time No Known Allergies Allergy Verified 10/03/17 07:17 Date of admission: 12/26/18 17:53 Primary care physician: Kristopher Guerrero MD Consults: 12/26/18 14:03 Consult to Cardiology [CONS] Stat Comment: Consulting Provider: Cardiology [place] Reason for Consult: Bradycardia Time Notified: 14:05 Call Completed: Yes - Constitutional Vitals: Temp Pulse Resp BP Pulse Ox 97.9 F 63 15 133/81 97 12/27/18 12:42 12/27/18 12:42 12/27/18 12:42 12/27/18 12:42 12/27/18 12:42 General appearance: Present: cooperative, A&O X 3, pleasant, no acute distress Exam: Gen: Alert, awake, Oriented to time,place and person Chest: Diminished breath sounds B/L, No wheezing, No crackles, No rales Heart: S1S2+ RRR No murmurs Abd: Soft, NT, BS +, No organomegaly Ext: No edema, pulses are palpable, No calf tenderness Neuro : No acute focal neuro deficits noticed Skin: No rash. - Patient Status Disposition: Home, Self-Care Condition: Good Overall status at discharge: patient is back to baseline - Discharge Instructions Follow Up With: Kristopher Guerrero MD [Primary Care Provider] - (Appointment has been requested. ) Mary Smith, BASK[employer]AD[employer] [Advanced Practice Nurse] - - Diet and Activity Activity: increase activity as tolerated Diet: low salt diet
[2018-12-27] MEDS: OLANZapine 10 MG TAB.RAPDIS PO SCH (20:31)
[2018-12-27 22:11] VITALS: BP 108/58
[2018-12-28] MEDS: Ipratropium/Albuterol Neb 3 ML IH SCH ×3 (00:05→07:57)
[2018-12-28] MEDS: amLODIPine 5 MG TABLET PO SCH (09:32)
[2018-12-28] MEDS: Cholecalciferol (D-3) 1,000 UNIT TABLET PO SCH (09:32)
[2018-12-28] MEDS: Lisinopril 20 MG TABLET PO SCH (09:32)
[2018-12-28] MEDS: Aspirin Enteric Coated 81 MG Tablet PO SCH (09:32)
[2018-12-28] MEDS: predniSONE 20 MG TABLET PO SCH (09:32)
[2018-12-28 10:11] LABS: Calcium 9.4 mg/dL (8.6-10.3); Potassium 3.9 mEq/L (3.5-5.1)
[2018-12-28 10:34] LABS: Basophils % 0.1 %; Eosinophils % 0.1 %; Hematocrit 36.5 % (37.5-50.1); Hemoglobin 11.6 g/dL (12.9-16.9); Immature Granulocytes % 0.5 % (0-4); Lymphocytes % 10.2 %; Mean Corpuscular HGB Conc 31.8 g/dL (31.6-35.5); Mean Corpuscular Hemoglobin 29.4 pg (28.0-33.3); Mean Corpuscular Volume 92.4 fL (83.0-100.0); Mean Platelet Volume 11.9 fL (9.4-12.4); Monocytes # 0.7 K/mcL (0.0-1.3); Monocytes % 3.3 %; Neutrophils # 17.1 K/mcL (1.6-8.9); Platelet Count 201 K/mcL (140-400); Red Blood Count 3.95 M/mcL (4.19-5.50); Segmented Neutrophils % 85.8 %
--- NOTE | 2018-12-28 10:40 | Event Note ---
Date of Encounter: 12/28/18 Time of Encounter: 10:35 I have seen and evaluated the patient at bedside. patient admitted due to bradycardia and dizziness. patient denies feeling dizzy. denies chest pain, light headedness or shortness of breath. Physical exam: Vitals: Reviewed General: Alert and oriented x3. in no distress Skin: Normal color, no rash, no lesions. HEENT: EOM, pupils equal, round and reactive. Cardiovascular: RRR, normal S1 & S2, no rubs, murmurs or gallops. Lungs: CTA b/l, no wheezes or crackles. Abdomen:Soft, non-tender, no rigidity. Extremities: No deformity, no edema or tenderness, no joint swelling or clubbing. Neurological: No focal neurological abnormalities Rest of the physical exam is non contributory Assessment: 1. Bradycardia (resolved) 2. Near syncope 3. Hypothyroidism 4. Paroxysmal a.fib 5. CKD 6. VTE prophylaxis 7. Leukocytosis Plan elevated WBCs believed to be due to steroids. patient with no signs of an acute infection. patient clinically stable to be discharged home recommended to have a repeat bmp within a week of hospital discharged. DC summary dictated yesterday.
== END 2018-12-28 11:37 | disposition home or self-care (01) | DRG 309 ==
LOC: EMEROOARM 10:16 → 3BNU 10:16 → SUATTDRO 17:53
PROVIDERS: ADMIT Internal Medicine Nephrology; ATTEND Family Medicine